=== PATIENT | male | born 1950 | race African-American/Black ===

== ENCOUNTER 2020-04-01 12:32 | Outpatient (REF) | payer MEDICARE, MEDICAID, SELFPAY ==
[2020-04-01 13:12] LABS: MANUAL DIFF FLAG NO
[2020-04-01 13:19] LABS: Basophils Percent Auto 0.2 % (0-2); Eosinophils Absolute Auto 0.2 X10*3/uL (0.0-0.4); Eosinophils Percent Auto 3.3 % (0-4); Hematocrit 33.9 % (42-52); Hemoglobin 10.5 g/dl (14.0-18.0); Imm Gran Abs Auto 0.03 X10*3/uL (0.00-0.03); Imm Gran Pct Auto 0.5 % (0.0-0.4); Lymphocytes Absolute Auto 1.7 X10*3/uL (1.2-4.9); Lymphocytes Percent Auto 26.3 % (20-40); Mean Corpuscular Hemoglobin 32.3 pg (27.0-33.0); Mean Corpuscular Volume 104.3 fL (80-98); Mean Platelet Volume 9.1 fL (9.4-12.4); Monocytes Absolute Auto 0.7 X10*3/uL (0.1-1.2); Monocytes Percent Auto 11.6 % (2-11); Neutrophils Absolute Auto 3.7 X10*3/uL (2.0-8.3); Neutrophils Percent Auto 58.1 % (45-73); Platelet Count 149 X10*3/uL (160-400); Red Blood Count 3.25 X10*6/uL (4.60-5.80); Red Cell Distribution Width 13.4 % (11.0-16.0); White Blood Count 6.3 X10*3/uL (4.8-10.8)
[2020-04-01 13:52] LABS: Anion Gap 13 (12-20); Blood Urea Nitrogen 14 mg/dL (9-16); Calcium 8.8 mg/dL (8.4-10.2); Carbon Dioxide 31 mmol/L (22-29); Chloride 104 mmol/L (96-108); Estimated Glomerular Filt Rate 51; Magnesium 1.9 mg/dL (1.6-2.6); Phosphorus 2.8 mg/dL (2.7-4.5); Potassium 3.2 mmol/l (3.3-5.1); Sodium 145 mmol/L (135-145)
[2020-04-01 13:53] LABS: Renal w Reflex Lab Use Only Order verified
[2020-04-01 14:10] LABS: Glucose Urine UA NEG (NEG); Leukocyte Esterase Urine TRACE (NEG); Nitrite Urine NEG (NEG); Specific Gravity - Urine 1.025 (1.005-1.025); UACC Culture Trigger YES; Urine Blood 3+ (NEG); Urine Ketones NEG (NEG); Urine Protein 1+ MG/DL (NEG-TRACE)
[2020-04-01 14:12] LABS: Appearance Urine HAZY; Color Urine YELLOW
[2020-04-01 14:14] LABS: Vitamin D 25-OH Total 25.1 ng/mL (>30)
[2020-04-01 14:25] LABS: Bacteria Urine 1+ /LPF; Mucus Urine TRACE /LPF; Squamous Epithelial Cell Urine TRACE /LPF; WBC Urine 50-75 /HPF (0-4)
[2020-04-01 14:39] LABS: Microalbum/Creatinine Ratio Ur 91.4 ug/mg cr; Protein/Creatinine Ratio, Ur 0.21 (<0.2); Total Protein Urine Random 61 mg/dL (<12)
[2020-04-02 15:42] LABS: Calcium (PTHI) 8.8 mg/dL (8.6-10.3); PTHI 57 pg/mL (14-64)
== END 2020-04-01 12:33 | disposition home or self-care (01) ==
LOC: HO.LAB 12:32
PROVIDERS: PCP Internal Medicine; Visit Provider Internal Medicine Nephrology
DX: I12.9 Hypertensive chronic kidney disease with stage 1 through stage 4 chronic kidney disease, or unspecified chronic kidney disease (principal); N18.2 Chronic kidney disease, stage 2 (mild); R80.9 Proteinuria, unspecified
CPT/HCPCS: 36415; 80051; 81001; 81003; 82040; 82043; 82306; 82310; 82565; 83735; 83970; 84100; 84156; 84520; 85025; 87086; 87088; 87186

== ENCOUNTER 2020-05-24 11:43 | Emergency (ER) | payer MEDICARE, MEDICAID, SELFPAY ==
--- NOTE | ~2020-05-24 | US_ITS ---
EXAMINATION: US VENOUS ULTRASOUND WITH DOPPLER LOWER EXTREMITY, RIGHT CLINICAL INFORMATION: Swelling and pain COMPARISON: Bilateral lower extremity venous ultrasound exam October 2016 TECHNIQUE: Ultrasound of the deep veins is performed from the hip to the calf with compression sonography and color and pulse Doppler assessment. Spectral analysis with color-flow imaging is performed. FINDINGS: There is normal venous compression and respiratory variation and augmented flow. The visualized common femoral vein, superficial femoral vein, profunda femoral vein, popliteal vein, and the trifurcation region shows no evidence of deep venous thrombosis. There is no significant popliteal fossa cyst. US/US venous duplex LE RT IMPRESSION: No DVT demonstrated in the right lower extremity.
--- NOTE | ~2020-05-24 | XR_ITS ---
EXAMINATION: XR HIP, RIGHT CLINICAL INFORMATION: Pain. COMPARISON: None. TECHNIQUE: 2 views of the right hip. FINDINGS: There is normal bilateral hip joint space without any bony erosive changes or fracture. The entire pelvic bone and SI joints are normal. There are small enthesophytes along the anterosuperior and anteroinferior iliac spines. There is mild endplate spondylosis in the L5 vertebra. AP and frog-leg views right hip reveal no fracture, bony erosive changes or loose bodies. There is minimal lateral acetabular spurring. XR/XR hip RT w PEL1V IMPRESSION: No acute fracture or dislocation. Mild degenerative changes along the right acetabulum. Enthesophytes along the anterosuperior iliac spine bilaterally.
[2020-05-24 12:00] VITALS: BP 135/68; BP 141/76; PULSE 58; PULSE 62; RESP 16; O2SAT 98; O2SAT 99; BMI 31.5
[2020-05-24 12:15] VITALS: BP 137/65; PULSE 55; RESP 16; TEMP 36.9; O2SAT 99
--- NOTE | 2020-05-24 12:20 | ED_ITS ---
HPI - Extremity Problem General Chief complaint: Extremity Problem Stated complaint: R HIP PAIN OVER 1 WEEK Time Seen by Provider: 05/24/20 12:10 Source: patient and EMS Mode of arrival: EMS Limitations: no limitations History of Present Illness HPI Narrative: 69-year-old male history of chronic lymphedema to bilateral lower extremities for the past 2 years, for the past 2 weeks now has been complaining of right lower extremities pain and swelling, no fever, no chills. Related Data Allergies Allergy/AdvReac Type Severity Reaction Status Date / Time furosemide [From LASIX] Allergy Severe PASSED Unverified 11/20/19 16:47 OUT Review of Systems Review of Systems: All other systems are reviewed and are negative Constitutional: Reports as per HPI and Reports no additional constitutional complaints Eyes: Reports as per HPI and Reports no additional eye complaints Reports system reviewed and no additional complaints, except as documented Cardiovascular: Reports as per HPI and Reports no additional cardiovascular complaints Respiratory: Reports as per HPI and Reports no additional respiratory complaints Gastrointestinal: Reports as per HPI and Reports no additional gastrointestinal complaints Genitourinary: Reports no additional female genitourinary complaints Musculoskeletal: Reports no additional musculoskeletal complaints Skin/Breast: Reports system reviewed and no additional complaints, except as docu Psychiatric: Reports no additional psychiatric complaints Endocrine: Reports no additional endocrine complaints Hematologic/Lymphatic: Reports no additional hematologic/lymphatic complaints Allergic/Immunologic: Reports no additional allergic/immunologic complaints Reports system reviewed and no additional complaints, except as documented and Reports Abnormal speech present [facility] Social History Social History Alcohol intake: former Smoking Status: Current every day smoker Use of substances other than those prescribed or required for medical reasons: No Advance Directives: No Advance Directives Information Provided: Yes Physical Exam Vital Signs: Vital Signs: Last Vital Signs Temp 98.4 F 05/24/20 14:26 Pulse 60 05/24/20 14:26 Resp 16 05/24/20 14:26 BP 129/72 05/24/20 14:26 Pulse Ox 99 05/24/20 14:26 Body Mass Index 31.5 Vital signs have been reviewed as appeared to be correct. Blood pressure normal. Heart rate normal. Respiration rate normal. Temperature normal. Oxygen saturation normal. Appearance: Alert. Oriented X3. No acute distress. Head: Normal external exam. Normocephalic. Atraumatic. No Quezada signs noted. No raccoon eyes noted Eyes: PERRLA. EOMI. Conjunctiva and sclera normal. Eyelids normal. ENT: TM's Normal. Pharynx normal. Uvula midline. Moist mucous membranes. No trismus noted. No drooling noted. No muffled voice noted. Neck: Normal inspection. Neck supple. FROM. No adenopathy. Thyroid Normal. No meningeal signs. No neck mass noted. CVS: Normal heart rate and rhythm. Heart sound normal. No murmurs noted. Pulses normal throughout. Respiratory: No respiratory distress. Painless inspiration. Breath sounds normal. No wheezes/rales/rhonchi noted. Chest nontender. No accessory muscle usage noted or decreased air movement noted. Abdomen: Soft and nontender. Bowel sounds normal in all 4 quadrants. No distention noted. No organomegaly noted. No visible injury noted. Back: No CVA tenderness. Full range of motion noted. Skin: Skin warm and dry. Normal skin color. Normal skin turgor. No rashes/lesions/lacerations noted. Extremities: Bilateral significant lower extremities +3 pitting edema. Neuro: Oriented X 3. No motor deficit. No sensory deficit. Reflexes normal. Course Course Course Narrative: Assessment and plan. 69-year-old male with chronic bilateral lower extremities lymphedema, came in today for worsening of the pain in the right hip and right lower extremities. Patient has unremarkable labs, do not appear to be in congestive heart failure, no DVT on the ultrasound lower extremities, no fracture or dislocation on the plain x-ray of her right hip. Will discharge the patient to use NSAIDs versus Tylenol p.r.n. pain. And follow-up with PCP may need referral to pain management clinic. MDM - Extremity (Nontraumatic) Lab Data Attestation: I reviewed the patient's lab results. Result diagrams: 05/24/20 13:19 05/24/20 13:19 Labs: Lab Results 05/24/20 05/24/20 05/24/20 Range/Units 13:19 13:19 13:19 WBC 5.4 (4.8-10.8) X10*3/uL RBC 3.55 L (4.60-5.80) X10*6/uL Hgb 11.5 L (14.0-18.0) g/dl Hct 37.2 L (42-52) % MCV 104.8 H (80-98) fL MCH 32.4 (27.0-33.0) pg MCHC 30.9 L (31.0-36.0) g/dl RDW 13.5 (11.0-16.0) % Plt Count 136 L (160-400) X10*3/uL MPV 8.3 L (9.4-12.4) fL Immature Gran % (Auto) 0.2 (0.0-0.4) % Neut % (Auto) 60.4 (45-73) % Lymph % (Auto) 25.6 (20-40) % [place] % (Auto) 10.6 (2-11) % Eos % (Auto) 2.8 (0-4) % Baso % (Auto) 0.4 (0-2) % Lymph # (Auto) 1.4 (1.2-4.9) X10*3/uL [place] # (Auto) 0.6 (0.1-1.2) X10*3/uL Eos # (Auto) 0.2 (0.0-0.4) X10*3/uL Baso # (Auto) 0.0 (0.0-0.2) X10*3/uL Abs Immat Gran (auto) 0.01 (0.00-0.03) X10*3/uL Absolute Neuts (auto) 3.2 (2.0-8.3) X10*3/uL Absolute Nucleated RBC 0.000 (0.0-0.012) X10*3/uL Nucleated RBC % (auto) 0.0 (0.0-0.2) /100WBC Sodium 145 (135-145) mmol/L Potassium 3.8 (3.3-5.1) mmol/L Chloride 107 (96-108) mmol/L Carbon Dioxide 29 (22-29) mmol/L Anion Gap 13 (12-20) BUN 17 H (9-16) mg/dL Creatinine 1.44 H (0.5-1.4) mg/dL Estim Creat Clear Calc 57.3 Estimated GFR 48 Random Glucose 104 (60-115) mg/dL Calcium 9.0 (8.4-10.2) mg/dL Total Bilirubin 0.6 (0.0-1.0) mg/dL Direct Bilirubin 0.2 (0.0-0.5) mg/dL AST 40 H (5-37) U/L ALT 28 (0-40) U/L Alkaline Phosphatase 78 (39-117) U/L B-Natriuretic Peptide 16 (<100) pg/mL Total Protein 6.9 (6.5-8.0) g/dL Albumin 4.1 (3.5-5.0) g/dL Imaging Data Right lower extremities venous Doppler.: Radiologist's impression: No DVT demonstrated in the right lower extremities. Right hip x-ray: Radiologist's impression: No acute pathology or dislocation. Discharge Plan Discharge Clinical Impression: Lymphedema of both lower extremities Patient Disposition: Home, Self-Care Instructions: Leg Edema (ED) Additional Instructions: As we discussed you can take Tylenol 500 mg ([id number]) every 6 hours if needed for pain. And you can alternate with ibuprofen 400 mg ([id number]) every 6 hours if needed for pain. Referrals: [facility] [place] Group] - 2 days
--- NOTE | 2020-05-24 12:44 | PC.NURSE ---
pt comes to ED with right sided 10/10 hip pain from a bone infection in his hip. pt is alert and oriented x3. verbal response and eye contact appropriate for setting. pt speaks in full sentences and able to make needs known. lung sounds clear bilaterally. respirations are even rate and unlabored. pts lower legs have non-pitting edema bilaterally, slight pitting in both feet. pt states both lower legs are tender to touch. skin on lower legs is edematous and loose but no breakdown present. bottoms of both feet are extremely dirty and toenails are overgrown, no skin breakdown noted in feet. inspection of right hip reveals no skin breakdown, no bruising or deformities noted. skin color on hip normal for patient, pt states right hip is tender to touch. pt aware of plan of care. aware.
[2020-05-24] MEDS: Morphine Sulfate 2 MG/ML CARTRIDGE IVPUSH (13:21)
[2020-05-24 13:23] LABS: MANUAL DIFF FLAG NO
[2020-05-24 13:25] LABS: Basophils Percent Auto 0.4 % (0-2); Eosinophils Absolute Auto 0.2 X10*3/uL (0.0-0.4); Eosinophils Percent Auto 2.8 % (0-4); Hematocrit 37.2 % (42-52); Hemoglobin 11.5 g/dl (14.0-18.0); Imm Gran Abs Auto 0.01 X10*3/uL (0.00-0.03); Imm Gran Pct Auto 0.2 % (0.0-0.4); Lymphocytes Absolute Auto 1.4 X10*3/uL (1.2-4.9); Lymphocytes Percent Auto 25.6 % (20-40); Mean Corpuscular HGB Conc 30.9 g/dl (31.0-36.0); Mean Corpuscular Hemoglobin 32.4 pg (27.0-33.0); Mean Corpuscular Volume 104.8 fL (80-98); Mean Platelet Volume 8.3 fL (9.4-12.4); Monocytes Absolute Auto 0.6 X10*3/uL (0.1-1.2); Monocytes Percent Auto 10.6 % (2-11); Neutrophils Absolute Auto 3.2 X10*3/uL (2.0-8.3); Neutrophils Percent Auto 60.4 % (45-73); Platelet Count 136 X10*3/uL (160-400); Red Blood Count 3.55 X10*6/uL (4.60-5.80); Red Cell Distribution Width 13.5 % (11.0-16.0); White Blood Count 5.4 X10*3/uL (4.8-10.8)
[2020-05-24 13:50] LABS: B Type Natriuretic Peptide 16 pg/mL (<100)
[2020-05-24 13:58] LABS: Alanine Aminotransferase 28 U/L (0-40); Albumin Level 4.1 g/dL (3.5-5.0); Alkaline Phosphatase 78 U/L (39-117); Anion Gap 13 (12-20); Aspartate Amino Transferase 40 U/L (5-37); Bilirubin Direct 0.2 mg/dL (0.0-0.5); Bilirubin Total 0.6 mg/dL (0.0-1.0); Blood Urea Nitrogen 17 mg/dL (9-16); Carbon Dioxide 29 mmol/L (22-29); Chloride 107 mmol/L (96-108); Creatinine Clr Calc Pharmacy 57.3; Estimated Glomerular Filt Rate 48; Glucose Random 104 mg/dL (60-115); Potassium 3.8 mmol/L (3.3-5.1); Sodium 145 mmol/L (135-145); Total Protein 6.9 g/dL (6.5-8.0)
[2020-05-24 14:26] VITALS: BP 129/72; PULSE 60; RESP 16; TEMP 36.9; O2SAT 99
--- NOTE | 2020-05-24 15:57 | PC.NURSE ---
per chd margarita pt okay to await in waiting room for chd ride.
== END 2020-05-24 16:09 | disposition home or self-care (01) ==
PROVIDERS: Emergency Provider Emergency Medicine
DX: M25.551 Pain in right hip (principal); R60.0 Localized edema; F17.200 Nicotine dependence, unspecified, uncomplicated; Z71.6 Tobacco abuse counseling
CPT/HCPCS: 36415; 73502; 80048; 80076; 83880; 85025; 93971; 96374; 99284; J2270

== ENCOUNTER 2020-07-06 12:28 | Outpatient (REF) | payer MEDICARE, MEDICAID, SELFPAY ==
[2020-07-06 15:03] LABS: Prostate Specific Antigen 0.69 ng/mL (<0.05-4.0)
== END 2020-07-06 12:29 | disposition home or self-care (01) ==
LOC: HO.10HDL 12:28
PROVIDERS: Visit Provider Urology
DX: Z12.5 Encounter for screening for malignant neoplasm of prostate (principal); N40.1 Benign prostatic hyperplasia with lower urinary tract symptoms
CPT/HCPCS: 36415; 84153

== ENCOUNTER 2020-09-27 14:00 | Outpatient (REF) | payer MEDICARE, MEDICAID, SELFPAY ==
--- NOTE | ~2020-09-27 | XR_ITS ---
EXAMINATION: XR LUMBOSACRAL SPINE CLINICAL INFORMATION: Low back pain COMPARISON: Previous x-ray December 2017 TECHNIQUE: Three views of the lumbosacral spine. FINDINGS: Bone alignment is normal. No fracture or dislocation is seen. There is mild degenerative spondylosis greatest at L1-L2. There is mild degenerative disc disease at L1-L2 and L5-S1. There is lower lumbar spine facet arthritis. XR/XR lumbar spine 2-3V IMPRESSION: Mild degenerative changes.
== END 2020-09-27 14:01 | disposition home or self-care (01) ==
LOC: HO.XRAY 14:00
PROVIDERS: PCP Internal Medicine; Visit Provider Internal Medicine
DX: M54.41 Lumbago with sciatica, right side (principal)
CPT/HCPCS: 72100

== ENCOUNTER 2020-11-25 11:07 | Outpatient (REF) | payer MEDICARE, MEDICAID, SELFPAY ==
[2020-11-25 12:35] LABS: MANUAL DIFF FLAG NO
[2020-11-25 12:38] LABS: Basophils Percent Auto 0.4 % (0-2); Eosinophils Absolute Auto 0.3 X10*3/uL (0.0-0.4); Hematocrit 33.2 % (42-52); Hemoglobin 10.4 g/dl (14.0-18.0); Imm Gran Abs Auto 0.02 X10*3/uL (0.00-0.03); Imm Gran Pct Auto 0.4 % (0.0-0.4); Lymphocytes Absolute Auto 1.6 X10*3/uL (1.2-4.9); Lymphocytes Percent Auto 29.3 % (20-40); Mean Corpuscular HGB Conc 31.3 g/dl (31.0-36.0); Mean Corpuscular Hemoglobin 32.3 pg (27.0-33.0); Mean Corpuscular Volume 103.1 fL (80-98); Mean Platelet Volume 8.8 fL (9.4-12.4); Monocytes Absolute Auto 0.6 X10*3/uL (0.1-1.2); Monocytes Percent Auto 11.9 % (2-11); Neutrophils Absolute Auto 2.9 X10*3/uL (2.0-8.3); Platelet Count 137 X10*3/uL (160-400); Red Blood Count 3.22 X10*6/uL (4.60-5.80); Red Cell Distribution Width 13.3 % (11.0-16.0); White Blood Count 5.4 X10*3/uL (4.8-10.8)
[2020-11-25 12:55] LABS: Appearance Urine CLEAR; Color Urine DK YELLOW; Glucose Urine UA NEG (NEG); Leukocyte Esterase Urine NEG (NEG); Nitrite Urine NEG (NEG); Specific Gravity - Urine >= 1.030 (1.005-1.025); Urine Blood 2+ (NEG); Urine Ketones NEG (NEG); Urine Protein TRACE MG/DL (NEG-TRACE)
[2020-11-25 13:06] LABS: Albumin Level 3.8 g/dL (3.5-5.0); Anion Gap 12 (12-20); Blood Urea Nitrogen 21 mg/dL (9-16); Carbon Dioxide 28 mmol/L (22-29); Chloride 107 mmol/L (96-108); Estimated Glomerular Filt Rate 41; Phosphorus 3.8 mg/dL (2.7-4.5); Sodium 143 mmol/L (135-145); Total Protein 6.5 g/dL (6.5-8.0)
[2020-11-25 13:10] LABS: Microalbum/Creatinine Ratio Ur 9.4 ug/mg cr; Protein/Creatinine Ratio, Ur 0.05 (<0.2); Total Protein Urine Random 19 mg/dL (<12)
[2020-11-25 14:11] LABS: Renal w Reflex Lab Use Only Order verified
[2020-11-25 14:45] LABS: Bacteria Urine 3+ /LPF; Squamous Epithelial Cell Urine 2+ /LPF
== END 2020-11-25 11:08 | disposition home or self-care (01) ==
LOC: HO.LAB 11:07
PROVIDERS: Absent Provider Internal Medicine; PCP Internal Medicine; Visit Provider Internal Medicine Nephrology
DX: R80.9 Proteinuria, unspecified (principal); I12.9 Hypertensive chronic kidney disease with stage 1 through stage 4 chronic kidney disease, or unspecified chronic kidney disease; N18.2 Chronic kidney disease, stage 2 (mild)
CPT/HCPCS: 36415; 80051; 81001; 81003; 82040; 82043; 82310; 82565; 83735; 84100; 84155; 84156; 84520; 85025

== ENCOUNTER 2021-06-29 12:10 | Outpatient (REF) | payer MEDICARE, OTHER, SELFPAY ==
[2021-06-29 12:34] LABS: MANUAL DIFF FLAG NO
[2021-06-29 13:24] LABS: Basophils Percent Auto 0.5 % (0-2); Eosinophils Absolute Auto 0.4 X10*3/uL (0.0-0.4); Eosinophils Percent Auto 5.9 % (0-4); Hematocrit 32.1 % (42.0-52.0); Imm Gran Abs Auto 0.02 X10*3/uL (0.00-0.03); Imm Gran Pct Auto 0.3 % (0.0-0.4); Lymphocytes Absolute Auto 2.3 X10*3/uL (1.2-4.9); Lymphocytes Percent Auto 30.6 % (20-40); Mean Corpuscular HGB Conc 31.2 g/dl (31.0-36.0); Mean Corpuscular Hemoglobin 31.7 pg (27.0-33.0); Mean Corpuscular Volume 101.9 fL (80.0-98.0); Mean Platelet Volume 8.8 fL (9.4-12.4); Monocytes Absolute Auto 0.7 X10*3/uL (0.1-1.2); Monocytes Percent Auto 9.8 % (2-11); Neutrophils Absolute Auto 3.9 x10*3/uL (2.0-8.3); Neutrophils Percent Auto 52.9 % (45-73); Platelet Count 156 X10*3/uL (160-400); Red Blood Count 3.15 X10*6/uL (4.60-5.80); Red Cell Distribution Width 13.5 % (11.0-16.0); White Blood Count 7.5 X10*3/uL (4.8-10.8)
[2021-06-29 14:01] LABS: Albumin Level 4.1 g/dL (3.5-5.0); Anion Gap 12 (12-20); Blood Urea Nitrogen 26 mg/dL (9-16); Calcium 9.4 mg/dL (8.4-10.2); Carbon Dioxide 29 mmol/L (22-29); Chloride 105 mmol/L (96-108); Estimated Glomerular Filt Rate 33; Magnesium 1.9 mg/dL (1.6-2.6); Phosphorus 3.3 mg/dL (2.7-4.5); Potassium 4.1 mmol/L (3.3-5.1); Sodium 142 mmol/L (135-145)
[2021-06-29 14:10] LABS: Vitamin D 25-OH Total 23.5 ng/mL (>30)
[2021-07-01 13:02] LABS: Calcium (PTHI) 9.1 mg/dL (8.6-10.3); PTHI 80 pg/mL (16-77)
== END 2021-06-29 12:11 | disposition home or self-care (01) ==
LOC: HO.LAB 12:10
PROVIDERS: PCP Internal Medicine; Visit Provider Internal Medicine Nephrology
DX: R80.1 Persistent proteinuria, unspecified (principal); N25.0 Renal osteodystrophy; N18.32 Chronic kidney disease, stage 3b; F17.290 Nicotine dependence, other tobacco product, uncomplicated
CPT/HCPCS: 36415; 80051; 82040; 82306; 82310; 82565; 83735; 83970; 84100; 84520; 85025

== ENCOUNTER 2021-07-19 14:27 | Outpatient (REF) | payer MEDICARE, OTHER, SELFPAY ==
[2021-07-19 14:54] LABS: Appearance Urine HAZY; Color Urine YELLOW; Glucose Urine UA NEG (NEG); Leukocyte Esterase Urine TRACE (NEG); Nitrite Urine NEG (NEG); Specific Gravity - Urine 1.025 (1.005-1.025); Urine Blood 2+ (NEG); Urine Ketones NEG (NEG); Urine Protein NEG (NEG-TRACE)
[2021-07-19 14:59] LABS: Bacteria Urine 2+ /LPF
[2021-07-19 15:00] LABS: Squamous Epithelial Cell Urine 3+ /LPF
[2021-07-19 15:09] LABS: Creatinine Urine 246.95 mg/dL; Microalbum/Creatinine Ratio Ur 10.5 ug/mg cr; Protein/Creatinine Ratio, Ur 0.06 (<0.2); Total Protein Urine Random 14 mg/dL (<12)
== END 2021-07-19 14:28 | disposition home or self-care (01) ==
LOC: HO.LNP 14:27
PROVIDERS: Visit Provider Internal Medicine Nephrology
DX: N18.32 Chronic kidney disease, stage 3b (principal); R80.1 Persistent proteinuria, unspecified; N25.0 Renal osteodystrophy; F17.290 Nicotine dependence, other tobacco product, uncomplicated
CPT/HCPCS: 81001; 82043; 84156; 87086; 87088; 87186

== ENCOUNTER 2021-12-05 14:17 | Outpatient (REF) | payer MEDICARE, OTHER, SELFPAY ==
[2021-12-05 14:36] LABS: MANUAL DIFF FLAG NO
[2021-12-05 15:45] LABS: Basophils Percent Auto 0.6 % (0-2); Eosinophils Absolute Auto 0.4 X10*3/uL (0.0-0.4); Eosinophils Percent Auto 5.9 % (0-4); Hematocrit 34.4 % (42.0-52.0); Hemoglobin 10.6 g/dl (14.0-18.0); Imm Gran Abs Auto 0.02 X10*3/uL (0.00-0.03); Imm Gran Pct Auto 0.3 % (0.0-0.4); Lymphocytes Absolute Auto 1.6 X10*3/uL (1.2-4.9); Mean Corpuscular HGB Conc 30.8 g/dl (31.0-36.0); Mean Corpuscular Hemoglobin 31.4 pg (27.0-33.0); Mean Corpuscular Volume 101.8 fL (80.0-98.0); Mean Platelet Volume 8.9 fL (9.4-12.4); Monocytes Absolute Auto 0.8 X10*3/uL (0.1-1.2); Monocytes Percent Auto 11.4 % (2-11); Neutrophils Absolute Auto 3.9 x10*3/uL (2.0-8.3); Neutrophils Percent Auto 57.8 % (45-73); Platelet Count 186 X10*3/uL (160-400); Red Blood Count 3.38 X10*6/uL (4.60-5.80); Red Cell Distribution Width 13.8 % (11.0-16.0); White Blood Count 6.7 X10*3/uL (4.8-10.8)
[2021-12-05 16:13] LABS: Albumin Level 4.1 g/dL (3.5-5.0); Anion Gap 14 (12-20); Blood Urea Nitrogen 17 mg/dL (9-16); Calcium 9.1 mg/dL (8.4-10.2); Carbon Dioxide 29 mmol/L (22-29); Chloride 106 mmol/L (96-108); Estimated Glomerular Filt Rate 45; Magnesium 2.1 mg/dL (1.6-2.6); Phosphorus 3.1 mg/dL (2.7-4.5); Potassium 3.9 mmol/L (3.3-5.1); Sodium 145 mmol/L (135-145)
[2021-12-05 16:27] LABS: Vitamin D 25-OH Total 25.3 ng/mL (>30)
[2021-12-05 17:16] LABS: Appearance Urine Cloudy; Color Urine Yellow; Glucose Urine UA Negative (Negative); Leukocyte Esterase Urine Moderate (2+) (Negative); Nitrite Urine Negative (Negative); PH 5.5 (5.0-9.0); Specific Gravity - Urine 1.025 (1.005-1.025); UMIC TRIGGER UA YES; Urine Blood Moderate (2+) (Negative); Urine Ketones Trace mg/dL (Negative); Urine Protein Trace mg/dL (Neg-Trace)
[2021-12-05 17:31] LABS: Bacteria Urine 4+ (None Seen); Hyaline Casts Urine 0-2 /LPF (0-2); WBC Clumps Urine Present; WBC Urine >50 /HPF (0-5)
[2021-12-05 17:48] LABS: Creatinine Urine 304.26 mg/dL; Microalbum/Creatinine Ratio Ur 9.5 ug/mg cr; Protein/Creatinine Ratio, Ur 0.08 (<0.2); Total Protein Urine Random 25 mg/dL (<12)
[2021-12-07 12:37] LABS: Calcium (PTHI) 9.3 mg/dL (8.6-10.3); PTHI 75 pg/mL (16-77)
== END 2021-12-05 14:18 | disposition home or self-care (01) ==
LOC: HO.LAB 14:17
PROVIDERS: PCP Internal Medicine; Visit Provider Internal Medicine Nephrology
DX: I12.9 Hypertensive chronic kidney disease with stage 1 through stage 4 chronic kidney disease, or unspecified chronic kidney disease (principal); N18.32 Chronic kidney disease, stage 3b; N25.0 Renal osteodystrophy; F17.290 Nicotine dependence, other tobacco product, uncomplicated; R30.0 Dysuria
CPT/HCPCS: 36415; 80051; 81001; 82040; 82043; 82306; 82310; 82565; 83735; 83970; 84100; 84156; 84520; 85025; 87086

== ENCOUNTER 2022-02-09 15:13 | Outpatient (REF) | payer MEDICARE, OTHER, SELFPAY ==
--- NOTE | ~2022-02-09 | US_ITS ---
EXAMINATION: US SCROTUM CLINICAL INFORMATION: Bilateral testicular enlargement. COMPARISON: None TECHNIQUE: A sonogram of the scrotum was performed assessing pond-scale appearance and color Doppler flow. Spectral Doppler analysis of the arterial and venous flow were performed in the testes bilaterally. FINDINGS: RIGHT: Right testicle measures 3.9 x 1.7 x 2.0 cm, volume 6.9 mL. No focal testicular parenchymal lesions are visualized. Spectral Doppler analysis of the arterial and venous flow is normal in the right testis. Incidental finding of small appendix testes. Right epididymal head is normal in size. There is a large right hydrocele No right varicocele is seen. Right epididymal Doppler flow is normal. LEFT: Left testicle measures 3.7 x 2.0 x 2.3 cm, volume 8.9 mL. No focal testicular parenchymal lesions are visualized. Spectral Doppler analysis of the arterial and venous flow is normal in the left testis. Incidental finding of a small appendix testes noted. Left epididymis is not visualized. There is a large left hydrocele. No left varicocele is seen. US/US scrotum IMPRESSION: Bilateral large hydroceles. Bilateral appendix testes. Left epididymis is not visualized. Right epididymal head simple cyst.
== END 2022-02-09 15:14 | disposition home or self-care (01) ==
LOC: HO.US 15:13
PROVIDERS: Visit Provider Internal Medicine
DX: N50.89 Other specified disorders of the male genital organs (principal)
CPT/HCPCS: 76870

== ENCOUNTER 2022-07-03 14:43 | Emergency (ER) | payer MEDICARE, MEDICAID, SELFPAY ==
[2022-07-03] VITALS (7 sets, daily range): BP systolic 132–147; BP diastolic 54–73; PULSE 52–67; RESP 18; TEMP 36.8; O2SAT 98; BMI 35.7
--- NOTE | 2022-07-03 16:05 | ECG_ITS ---
Test Reason : LOW POTASSIUM Blood Pressure : / mmHG Vent. Rate : 059 BPM Atrial Rate : 059 BPM P-R Int : 136 ms QRS Dur : 080 ms QT Int : 458 ms P-R-T Axes : 042 015 008 degrees QTc Int : 453 ms Sinus bradycardia with sinus arrhythmia Nonspecific ST abnormality Abnormal ECG When compared with ECG of 06-APR-2009 14:30, Nonspecific T wave abnormality now evident in Anterior leads Referred By: Bambi Goldman Electronically Signed By:LUKASZ WOO MD
--- NOTE | 2022-07-03 16:06 | ED_ITS ---
HPI - Recheck/Abnormal Lab/Rx General Chief Complaint: Recheck/Abnormal Lab/Rx <RAFITA Montana - Last Filed: 07/03/22 16:07> Stated Complaint: Low potassium levels <RAFITA Montana - Last Filed: 07/03/22 16:07> Time Seen by Provider: 07/03/22 16:20 <RAFITA [place] - Last Filed: 07/03/22 16:07> Source: patient <Rhonda Leon MD - Last Filed: 07/03/22 21:14> Mode of arrival: ambulatory <Rhonda Leon MD - Last Filed: 07/03/22 21:14> Limitations: no limitations <Rhonda Leon MD - Last Filed: 07/03/22 21:14> History of Present Illness HPI narrative: Patient comes to the emergency room complaining of low potassium. Patient states that 3 days ago, he had blood work done, patient was informed that his potassium was low. Patient received a phone call today from his PCP, asking him to come to the emergency room for further treatment/evaluation. Patient denies any chest pain or shortness of breath, no recent illnesses. Patient reports a for 1 month, he has been feeling drowsy. Initially, patient reported that he feels dizzy, patient explains dizziness as feeling unsteady when walking. Denies any room spinning, self spinning <Rhonda Leon MD - Last Filed: 07/03/22 21:14> Related Data Home Medications: Previous Rx's Medication Instructions Recorded potassium chloride 10 mEq 10 meq PO DAILY #30 caps 07/03/22 capsule,extended release <RAFITA Montana - Last Filed: 07/03/22 16:07> Allergies/Adverse Reactions: Allergies Allergy/AdvReac Type Severity Reaction Status Date / Time furosemide [From LASIX] Allergy Severe PASSED Verified 07/03/22 15:18 OUT <RAFITA Montana - Last Filed: 07/03/22 16:07> Review of Systems Review of Systems: Constitutional : No Weight loss, No Fever, No Chills, No Night Sweats, complaining of drowsiness from month, No Malaise ENT/Mouth : No Hearing loss, No Ear Pain, No Nasal Congestion, No Sinus Pain, No Hoarseness, No sore throat, No Rhinorrhea, No Swallowing Difficulty Eyes: No Eye Pain, No Swelling, No Redness, No Foreign Body, No Discharge, No Vision Changes Cardiovascular : No Chest Pain, No SOB, No Dyspnea on Exertion, No Orthopnea, No Edema, No Palpitations Respiratory : No Cough, No Sputum, No Wheezing, No Smoke Exposure, No Dyspnea Gastrointestinal : No Nausea, No Vomiting, No Diarrhea, No Constipation, No abdominal Pain, No Hematochezia, No Melena Genitourinary : no irregular bleeding, No Dysuria, No Urinary Frequency, No Hematuria, No Urinary Incontinence, No Urgency, No Flank Pain, No Urinary Flow Changes, No Hesitancy Musculoskeletal : No joint pain, No Myalgias, No Joint Swelling Skin : No Skin Lesions, No rash Neuro : No Weakness, No Numbness, No Paresthesias, No Loss of Consciousness, No Dizziness, No Headache Psych : No Anxiety/Panic, No Depression, No SI/HI/AH/VH, No Social Issues, Heme/Lymph: No Bruising, No Bleeding,No Lymphadenopathy Endocrine : No Polyuria, No Polydipsia, No Temperature Intolerance <Rhonda Leon MD - Last Filed: 07/03/22 21:14> [facility] Past Medical History Medical History: Medical History (Updated 07/03/22 @ 21:13 by Rhonda Leon MD) Chronic acquired lymphedema <RAFITA Montana - Last Filed: 07/03/22 16:07> Social History Social History: Social History Alcohol intake: former Smoked in Last 30 Days: Yes Advance Directives: No Advance Directives Information Provided: No <RAFITA Montana - Last Filed: 07/03/22 16:07> Physical Exam Vital Signs: Vital Signs: Last Vital Signs Temp 98.3 F 07/03/22 15:20 Pulse 58 07/03/22 17:56 Resp 18 07/03/22 16:00 BP 137/71 07/03/22 17:56 Pulse Ox 98 07/03/22 16:00 O2 Del Method Room Air 07/03/22 16:00 BMI result Body Mass Index 35.7 <RAFITA Montana - Last Filed: 07/03/22 16:07> Vital Signs: Last Vital Signs Temp 98.3 F 07/03/22 15:20 Pulse 58 07/03/22 17:56 Resp 18 07/03/22 16:00 BP 137/71 07/03/22 17:56 Pulse Ox 98 07/03/22 16:00 O2 Del Method Room Air 07/03/22 16:00 BMI result Body Mass Index 35.7 <Rhonda Leon MD - Last Filed: 07/03/22 21:14> Const: Other: Appearance: Alert. Oriented X3. No acute distress. Eyes: Pupils equal, round and reactive to light. ENT: Pharynx normal. Neck: Normal inspection. Neck supple. No lymph nodes noted. No crepitus CVS: Normal heart rate and rhythm. Pulses normal. Normal S1 and S2 Respiratory: No respiratory distress. Breath sounds normal. No Wheezing. No rales Abdomen: Soft and nontender. No rigidity. No distention. Skin: Skin warm and dry. Normal skin color. Normal skin turgor. Extremities: +4 pitting edema (at baseline per patient), chronic venous stasis, chronic lymphedema Neuro: Oriented X 3. No motor deficit. No sensory deficit. Moving all extremities. No slurred speech. CN 2 through 12 grossly intact Psych: calm, cooperative, normal affect <Rhonda Leon MD - Last Filed: 07/03/22 21:14> Course Course Course Narrative: RME - 71 yo male presents to the ER for evaluation of low potassium. He had labs done of Sunday and was told to come to the ER today because his potassium was low. He denies any vomiting or diarrhea. He is not on diuretics. He states he has been dizzy and weak for a month. Plan: labs and EKG <RAFITA Montana - Last Filed: 07/03/22 16:07> Reevaluation(s) Reevaluation #1: Received call from outpatient office saying his potassium was 2.7 on Sunday <RAFITA Montana - Last Filed: 07/03/22 16:07> Medications Administered Discontinued Medications Generic Name Dose Route Start Last Admin Trade Name Freq PRN Reason Stop Dose Admin Potassium Chloride 60 meq 07/03/22 16:29 07/03/22 16:44 Potassium Chloride Packet 20 Meq Packet PO 07/03/22 16:30 60 meq ONCE ONE Administration Potassium Chloride 60 meq 07/03/22 18:43 07/03/22 19:04 Potassium Chloride Packet 20 Meq Packet PO 07/03/22 18:44 60 meq ONCE ONE Administration <RAFITA Montana - Last Filed: 07/03/22 16:07> Medications Administered Discontinued Medications Generic Name Dose Route Start Last Admin Trade Name Alan PRN Reason Stop Dose Admin Potassium Chloride 60 meq 07/03/22 16:29 07/03/22 16:44 Potassium Chloride Packet 20 Meq Packet PO 07/03/22 16:30 60 meq ONCE ONE Administration Potassium Chloride 60 meq 07/03/22 18:43 07/03/22 19:04 Potassium Chloride Packet 20 Meq Packet PO 07/03/22 18:44 60 meq ONCE ONE Administration <Rhonda Leon MD - Last Filed: 07/03/22 21:14> Medical Decision Making Medical Decision Making MDM Narrative: -EKG my interpretation: Bradycardia, sinus rhythm, mild arrhythmia, heart rate 59, no ST segment elevation or depression, no T-wave inversion, QTC 453 -patient's potassium was repleted. Patient remains asymptomatic. Hypokalemia likely secondary to Lasix use. <Rhonda Leon MD - Last Filed: 07/03/22 21:14> Lab Data Result Diagrams: 07/03/22 16:01 07/03/22 16:01 <RAFITA Montana - Last Filed: 07/03/22 16:07> Labs: Lab Results 07/03/22 07/03/22 07/03/22 Range/Units 16:01 16:01 18:18 WBC 5.2 (4.8-10.8) X10*3/uL RBC 2.96 L (4.60-5.80) X10*6/uL Hgb 9.3 L (14.0-18.0) g/dl Hct 29.9 L (42.0-52.0) % MCV 101.0 H (80.0-98.0) fL MCH 31.4 (27.0-33.0) pg MCHC 31.1 (31.0-36.0) g/dl RDW 15.8 (11.0-16.0) % Plt Count 171 (160-400) X10*3/uL MPV 8.1 L (9.4-12.4) fL Immature Gran % (Auto) 0.2 (0.0-0.4) % Neut % (Auto) 55.1 (45-73) % Lymph % (Auto) 28.4 (20-40) % Canadian % (Auto) 11.1 H (2-11) % Eos % (Auto) 4.6 H (0-4) % Baso % (Auto) 0.6 (0-2) % Lymph # (Auto) 1.5 (1.2-4.9) X10*3/uL Canadian # (Auto) 0.6 (0.1-1.2) X10*3/uL Eos # (Auto) 0.2 (0.0-0.4) X10*3/uL Baso # (Auto) 0.0 (0.0-0.2) X10*3/uL Abs Immat Gran (auto) 0.01 (0.00-0.03) X10*3/uL Absolute Neuts (auto) 2.9 (2.0-8.3) x10*3/uL Absolute Nucleated RBC 0.000 (0.0-0.012) X10*3/uL Nucleated RBC % (auto) 0.0 (0.0-0.2) /100WBC VBG pH (7.32-7.43) VBG pCO2 mmHg VBG pO2 mmHg VBG HCO3 (22-26) mmol/L VBG O2 Saturation % VBG Base Excess mmol/L Sodium 146 H 147 H (135-145) mmol/L Potassium 2.8 L D 3.0 L (3.3-5.1) mmol/L Chloride 105 105 (96-108) mmol/L Carbon Dioxide 35 H 35 H (22-29) mmol/L Anion Gap 9 L 10 L (12-20) BUN 11 11 (9-16) mg/dL Creatinine 1.33 1.31 (0.5-1.4) mg/dL Estim Creat Clear Calc 64.1 65.0 Estimated GFR 53 54 Random Glucose 131 H 126 H (60-115) mg/dL Calcium 8.7 8.7 (8.4-10.2) mg/dL Magnesium 2.0 (1.6-2.6) mg/dL Total Bilirubin 0.4 (0.0-1.0) mg/dL Direct Bilirubin 0.2 (0.0-0.5) mg/dL AST 12 (5-37) U/L ALT 5 (0-40) U/L Alkaline Phosphatase 77 (39-117) U/L Total Protein 5.8 L (6.5-8.0) g/dL Albumin 3.3 L (3.5-5.0) g/dL 07/03/22 07/03/22 Range/Units 18:21 20:34 WBC (4.8-10.8) X10*3/uL RBC (4.60-5.80) X10*6/uL Hgb (14.0-18.0) g/dl Hct (42.0-52.0) % MCV (80.0-98.0) fL MCH (27.0-33.0) pg MCHC (31.0-36.0) g/dl RDW (11.0-16.0) % Plt Count (160-400) X10*3/uL MPV (9.4-12.4) fL Immature Gran % (Auto) (0.0-0.4) % Neut % (Auto) (45-73) % Lymph % (Auto) (20-40) % Canadian % (Auto) (2-11) % Eos % (Auto) (0-4) % Baso % (Auto) (0-2) % Lymph # (Auto) (1.2-4.9) X10*3/uL Canadian # (Auto) (0.1-1.2) X10*3/uL Eos # (Auto) (0.0-0.4) X10*3/uL Baso # (Auto) (0.0-0.2) X10*3/uL Abs Immat Gran (auto) (0.00-0.03) X10*3/uL Absolute Neuts (auto) (2.0-8.3) x10*3/uL Absolute Nucleated RBC (0.0-0.012) X10*3/uL Nucleated RBC % (auto) (0.0-0.2) /100WBC VBG pH 7.45 H (7.32-7.43) VBG pCO2 51 mmHg VBG pO2 56 mmHg VBG HCO3 36 H (22-26) mmol/L VBG O2 Saturation 87.0 % VBG Base Excess 11.5 mmol/L Sodium (135-145) mmol/L Potassium 3.6 (3.3-5.1) mmol/L Chloride (96-108) mmol/L Carbon Dioxide (22-29) mmol/L Anion Gap (12-20) BUN (9-16) mg/dL Creatinine (0.5-1.4) mg/dL Estim Creat Clear Calc Estimated GFR Random Glucose (60-115) mg/dL Calcium (8.4-10.2) mg/dL Magnesium (1.6-2.6) mg/dL Total Bilirubin (0.0-1.0) mg/dL Direct Bilirubin (0.0-0.5) mg/dL AST (5-37) U/L ALT (0-40) U/L Alkaline Phosphatase (39-117) U/L Total Protein (6.5-8.0) g/dL Albumin (3.5-5.0) g/dL <RAFITA Montana - Last Filed: 07/03/22 16:07> Lab Results 07/03/22 07/03/22 07/03/22 Range/Units 16:01 16:01 18:18 WBC 5.2 (4.8-10.8) X10*3/uL RBC 2.96 L (4.60-5.80) X10*6/uL Hgb 9.3 L (14.0-18.0) g/dl Hct 29.9 L (42.0-52.0) % MCV 101.0 H (80.0-98.0) fL MCH 31.4 (27.0-33.0) pg MCHC 31.1 (31.0-36.0) g/dl RDW 15.8 (11.0-16.0) % Plt Count 171 (160-400) X10*3/uL MPV 8.1 L (9.4-12.4) fL Immature Gran % (Auto) 0.2 (0.0-0.4) % Neut % (Auto) 55.1 (45-73) % Lymph % (Auto) 28.4 (20-40) % Canadian % (Auto) 11.1 H (2-11) % Eos % (Auto) 4.6 H (0-4) % Baso % (Auto) 0.6 (0-2) % Lymph # (Auto) 1.5 (1.2-4.9) X10*3/uL Canadian # (Auto) 0.6 (0.1-1.2) X10*3/uL Eos # (Auto) 0.2 (0.0-0.4) X10*3/uL Baso # (Auto) 0.0 (0.0-0.2) X10*3/uL Abs Immat Gran (auto) 0.01 (0.00-0.03) X10*3/uL Absolute Neuts (auto) 2.9 (2.0-8.3) x10*3/uL Absolute Nucleated RBC 0.000 (0.0-0.012) X10*3/uL Nucleated RBC % (auto) 0.0 (0.0-0.2) /100WBC VBG pH (7.32-7.43) VBG pCO2 mmHg VBG pO2 mmHg VBG HCO3 (22-26) mmol/L VBG O2 Saturation % VBG Base Excess mmol/L Sodium 146 H 147 H (135-145) mmol/L Potassium 2.8 L D 3.0 L (3.3-5.1) mmol/L Chloride 105 105 (96-108) mmol/L Carbon Dioxide 35 H 35 H (22-29) mmol/L Anion Gap 9 L 10 L (12-20) BUN 11 11 (9-16) mg/dL Creatinine 1.33 1.31 (0.5-1.4) mg/dL Estim Creat Clear Calc 64.1 65.0 Estimated GFR 53 54 Random Glucose 131 H 126 H (60-115) mg/dL Calcium 8.7 8.7 (8.4-10.2) mg/dL Magnesium 2.0 (1.6-2.6) mg/dL Total Bilirubin 0.4 (0.0-1.0) mg/dL Direct Bilirubin 0.2 (0.0-0.5) mg/dL AST 12 (5-37) U/L ALT 5 (0-40) U/L Alkaline Phosphatase 77 (39-117) U/L Total Protein 5.8 L (6.5-8.0) g/dL Albumin 3.3 L (3.5-5.0) g/dL 07/03/22 07/03/22 Range/Units 18:21 20:34 WBC (4.8-10.8) X10*3/uL RBC (4.60-5.80) X10*6/uL Hgb (14.0-18.0) g/dl Hct (42.0-52.0) % MCV (80.0-98.0) fL MCH (27.0-33.0) pg MCHC (31.0-36.0) g/dl RDW (11.0-16.0) % Plt Count (160-400) X10*3/uL MPV (9.4-12.4) fL Immature Gran % (Auto) (0.0-0.4) % Neut % (Auto) (45-73) % Lymph % (Auto) (20-40) % Canadian % (Auto) (2-11) % Eos % (Auto) (0-4) % Baso % (Auto) (0-2) % Lymph # (Auto) (1.2-4.9) X10*3/uL Canadian # (Auto) (0.1-1.2) X10*3/uL Eos # (Auto) (0.0-0.4) X10*3/uL Baso # (Auto) (0.0-0.2) X10*3/uL Abs Immat Gran (auto) (0.00-0.03) X10*3/uL Absolute Neuts (auto) (2.0-8.3) x10*3/uL Absolute Nucleated RBC (0.0-0.012) X10*3/uL Nucleated RBC % (auto) (0.0-0.2) /100WBC VBG pH 7.45 H (7.32-7.43) VBG pCO2 51 mmHg VBG pO2 56 mmHg VBG HCO3 36 H (22-26) mmol/L VBG O2 Saturation 87.0 % VBG Base Excess 11.5 mmol/L Sodium (135-145) mmol/L Potassium 3.6 (3.3-5.1) mmol/L Chloride (96-108) mmol/L Carbon Dioxide (22-29) mmol/L Anion Gap (12-20) BUN (9-16) mg/dL Creatinine (0.5-1.4) mg/dL Estim Creat Clear Calc Estimated GFR Random Glucose (60-115) mg/dL Calcium (8.4-10.2) mg/dL Magnesium (1.6-2.6) mg/dL Total Bilirubin (0.0-1.0) mg/dL Direct Bilirubin (0.0-0.5) mg/dL AST (5-37) U/L ALT (0-40) U/L Alkaline Phosphatase (39-117) U/L Total Protein (6.5-8.0) g/dL Albumin (3.5-5.0) g/dL <Rhonda Leon MD - Last Filed: 07/03/22 21:14> Critical Care Time Critical Care Time Critical Care Time: Yes <Rhonda Leon MD - Last Filed: 07/03/22 21:14> Total Critical Care Time: 30 <Rhonda Leon MD - Last Filed: 07/03/22 21:14> Attestation: I have personally provided critical care time. Time includes review of lab data, radiology results, discussion with consultants, and monitoring for potential decompensation. Intervention performed as documented. <Rhonda Leon MD - Last Filed: 07/03/22 21:14> Discharge Plan Discharge Clinical Impression: Acute hypokalemia <RAFITA Montana - Last Filed: 07/03/22 16:07> Patient Disposition: Home, Self-Care <RAFITA Montana - Last Filed: 07/03/22 16:07> Instructions: Hypokalemia (ED) <RAFITA Montana - Last Filed: 07/03/22 16:07> Additional Instructions: Please follow-up with your primary care physician tomorrow. If you have any worsening or new symptoms, please return to the emergency room or call 911 <RAFITA Montana - Last Filed: 07/03/22 16:07> Prescriptions: New potassium chloride 10 mEq capsule, extended release 10 meq PO DAILY Qty: 30 0RF <RAFITA Montana - Last Filed: 07/03/22 16:07>
[2022-07-03 16:08] LABS: MANUAL DIFF FLAG NO
--- NOTE | 2022-07-03 16:08 | MHC.EDTECH ---
[facility] for ride home: [phone] or [phone]
[2022-07-03 16:19] LABS: Basophils Percent Auto 0.6 % (0-2); Eosinophils Absolute Auto 0.2 X10*3/uL (0.0-0.4); Eosinophils Percent Auto 4.6 % (0-4); Hematocrit 29.9 % (42.0-52.0); Hemoglobin 9.3 g/dl (14.0-18.0); Imm Gran Abs Auto 0.01 X10*3/uL (0.00-0.03); Imm Gran Pct Auto 0.2 % (0.0-0.4); Lymphocytes Absolute Auto 1.5 X10*3/uL (1.2-4.9); Lymphocytes Percent Auto 28.4 % (20-40); Mean Corpuscular HGB Conc 31.1 g/dl (31.0-36.0); Mean Corpuscular Hemoglobin 31.4 pg (27.0-33.0); Mean Platelet Volume 8.1 fL (9.4-12.4); Monocytes Absolute Auto 0.6 X10*3/uL (0.1-1.2); Monocytes Percent Auto 11.1 % (2-11); Neutrophils Absolute Auto 2.9 x10*3/uL (2.0-8.3); Neutrophils Percent Auto 55.1 % (45-73); Platelet Count 171 X10*3/uL (160-400); Red Blood Count 2.96 X10*6/uL (4.60-5.80); Red Cell Distribution Width 15.8 % (11.0-16.0); White Blood Count 5.2 X10*3/uL (4.8-10.8)
[2022-07-03 16:27] LABS: Alanine Aminotransferase 5 U/L (0-40); Albumin Level 3.3 g/dL (3.5-5.0); Alkaline Phosphatase 77 U/L (39-117); Anion Gap 9 (12-20); Aspartate Amino Transferase 12 U/L (5-37); Bilirubin Direct 0.2 mg/dL (0.0-0.5); Bilirubin Total 0.4 mg/dL (0.0-1.0); Blood Urea Nitrogen 11 mg/dL (9-16); Calcium 8.7 mg/dL (8.4-10.2); Carbon Dioxide 35 mmol/L (22-29); Chloride 105 mmol/L (96-108); Creatinine Clr Calc Pharmacy 64.1; Estimated Glomerular Filt Rate 53; Glucose Random 131 mg/dL (60-115); Potassium 2.8 mmol/L (3.3-5.1); Sodium 146 mmol/L (135-145); Total Protein 5.8 g/dL (6.5-8.0)
[2022-07-03] MEDS: Potassium Chloride Packet 20 MEQ PACKET 60 MEQ PO ×2 (16:44→19:04)
[2022-07-03 18:42] LABS: VBG Base Excess 11.5 mmol/L; VBG HCO3 36 mmol/L (22-26); VBG pCO2 51 mmHg; VBG pH 7.45 (7.32-7.43); VBG pO2 56 mmHg
[2022-07-03 18:42] LABS: Anion Gap 10 (12-20); Blood Urea Nitrogen 11 mg/dL (9-16); Calcium 8.7 mg/dL (8.4-10.2); Carbon Dioxide 35 mmol/L (22-29); Chloride 105 mmol/L (96-108); Estimated Glomerular Filt Rate 54; Glucose Random 126 mg/dL (60-115); Sodium 147 mmol/L (135-145)
[2022-07-03 19:01] LABS: Venous Blood Gas Refer to POC result
--- NOTE | 2022-07-03 19:07 | PC.NURSE ---
assumed care of patient at 1900 - second dose of potassium po given. will recheck lab value at 20:00. pt resting comfortably on stretcher in no apparent distress. offers no complaints at this time. will CTM
[2022-07-03 20:51] LABS: Potassium 3.6 mmol/L (3.3-5.1)
== END 2022-07-04 00:44 | disposition home or self-care (01) ==
PROVIDERS: Physician Assistant; Emergency Provider Emergency Medicine; PCP Internal Medicine
DX: E87.6 Hypokalemia (principal); R00.1 Bradycardia, unspecified; Z79.899 Other long term (current) drug therapy
CPT/HCPCS: 36415; 80048; 80076; 82803; 83735; 84132; 85025; 93005; 99283; 99284

== ENCOUNTER 2022-09-11 11:36 | Outpatient (REF) | payer MEDICARE, MEDICAID, SELFPAY | END 2022-09-11 11:37 | disposition home or self-care (01) | LOC: HO.LAB 11:36 | PROVIDERS: PCP Internal Medicine; Visit Provider Internal Medicine | DX: D53.9 Nutritional anemia, unspecified (principal) | CPT/HCPCS: 36415; 82607; 82746; 85025 ==

== ENCOUNTER → 2022-10-04 14:44 | Outpatient (BNV) | payer MEDICARE, MEDICAID, SELFPAY | PROVIDERS: PCP Internal Medicine; Referring Provider Internal Medicine; Visit Provider Internal Medicine | DX: D64.9 Anemia, unspecified (principal) | CPT/HCPCS: 99204; 99213; 99214; G2211 ==

== ENCOUNTER 2022-10-26 10:25 | Outpatient (REF) | payer MEDICARE, MEDICAID, SELFPAY ==
--- NOTE | ~2022-10-26 | US_ITS ---
EXAMINATION: US ABDOMEN COMPLETE CLINICAL INFORMATION: History of alcoholism. Question liver disease. COMPARISON: Ultrasound kidneys and bladder 08/25/2018. TECHNIQUE: Real-time imaging of the abdominal viscera. FINDINGS: PANCREAS: Normal. ABDOMINAL AORTA: The proximal, mid, and distal segments are normal in caliber. INFERIOR VENA CAVA: Visualized portions are normal. LIVER: The liver is normal in size. The liver contour is normal. There is diffuse increased liver parenchymal echogenicity. No focal hepatic lesion. There is no intrahepatic biliary duct dilatation seen. GALLBLADDER: Normal. The gallbladder is physiologically distended without evidence of stones, sludge, polyps, wall thickening or pericholecystic fluid. COMMON BILE DUCT: Normal in caliber measuring 0.47 cm in diameter. RIGHT KIDNEY: Multiple simple cysts are seen, the largest at the upper pole measuring 1.5 cm, at the interpolar aspect 2.8 cm, and at the lower pole 1.2 cm. These require no imaging follow-up. No hydronephrosis or renal calculi. The kidney measures 10.3 cm in maximum dimension. LEFT KIDNEY: Multiple simple cysts are seen, the largest at the upper pole measuring 2.9 cm, at the interpolar aspect 3.4 cm, and at the lower pole 4.0 cm. These require no imaging follow-up. No hydronephrosis or renal calculi. The kidney measures 12.8 cm in maximum dimension. SPLEEN: Normal. The spleen measures 7.3 cm in maximum dimension. FREE FLUID: None. US/US abdomen complete IMPRESSION: There is generalized increase in hepatic echotexture, consistent with fatty infiltration or hepatocellular disease. Please correlate clinically. No focal hepatic mass or intrahepatic biliary dilatation is seen.
== END 2022-10-26 10:26 | disposition home or self-care (01) ==
LOC: HO.HMGCX 10:25
PROVIDERS: PCP Internal Medicine; Visit Provider Internal Medicine
DX: F10.21 Alcohol dependence, in remission (principal)
CPT/HCPCS: 76700

== ENCOUNTER 2022-11-08 11:29 | Outpatient (REF) | payer MEDICARE, MEDICAID, SELFPAY ==
[2022-11-08 12:02] LABS: MANUAL DIFF FLAG NO
[2022-11-08 12:43] LABS: Basophils Percent Auto 0.4 % (0-2); Eosinophils Absolute Auto 0.1 X10*3/uL (0.0-0.4); Eosinophils Percent Auto 2.5 % (0-4); Hematocrit 31.1 % (42.0-52.0); Hemoglobin 9.8 g/dl (14.0-18.0); Imm Gran Abs Auto 0.02 X10*3/uL (0.00-0.03); Imm Gran Pct Auto 0.4 % (0.0-0.4); Lymphocytes Absolute Auto 1.4 X10*3/uL (1.2-4.9); Lymphocytes Percent Auto 28.2 % (20-40); Mean Corpuscular HGB Conc 31.5 g/dl (31.0-36.0); Mean Corpuscular Hemoglobin 32.6 pg (27.0-33.0); Mean Corpuscular Volume 103.3 fL (80.0-98.0); Mean Platelet Volume 8.9 fL (9.4-12.4); Monocytes Absolute Auto 0.7 X10*3/uL (0.1-1.2); Monocytes Percent Auto 14.8 % (2-11); Neutrophils Absolute Auto 2.6 x10*3/uL (2.0-8.3); Neutrophils Percent Auto 53.7 % (45-73); Platelet Count 153 X10*3/uL (160-400); Red Blood Count 3.01 X10*6/uL (4.60-5.80); Red Cell Distribution Width 13.6 % (11.0-16.0); White Blood Count 4.8 X10*3/uL (4.8-10.8)
[2022-11-08 13:58] LABS: Albumin Level 3.7 g/dL (3.5-5.0); Calcium 9.4 mg/dL (8.4-10.2); Magnesium 1.9 mg/dL (1.6-2.6); Phosphorus 3.6 mg/dL (2.7-4.5)
[2022-11-08 14:05] LABS: Vitamin D 25-OH Total 27.4 ng/mL (>30)
[2022-11-08 14:21] LABS: Anion Gap 14 (12-20)
[2022-11-08 14:23] LABS: Blood Urea Nitrogen 21 mg/dL (9-16); Carbon Dioxide 29 mmol/L (22-29); Chloride 106 mmol/L (96-108); Estimated Glomerular Filt Rate 36; Potassium 4.1 mmol/L (3.3-5.1); Sodium 145 mmol/L (135-145)
[2022-11-10 15:54] LABS: Calcium (PTHI) 8.8 mg/dL (8.6-10.3); PTHI 45 pg/mL (16-77)
== END 2022-11-08 11:30 | disposition home or self-care (01) ==
LOC: HO.LAB 11:29
PROVIDERS: PCP Internal Medicine; Visit Provider Internal Medicine Nephrology
DX: N18.32 Chronic kidney disease, stage 3b (principal)
CPT/HCPCS: 36415; 80051; 82040; 82306; 82310; 82565; 83735; 83970; 84100; 84520; 85025

== ENCOUNTER 2022-11-12 | Outpatient (REF) | payer MEDICARE, MEDICAID, SELFPAY ==
[2022-11-13 14:59] LABS: Appearance Urine Cloudy; Color Urine Yellow; Glucose Urine UA Negative (Negative); Leukocyte Esterase Urine Moderate (2+) (Negative); Nitrite Urine Negative (Negative); PH 5.5 (5.0-9.0); Specific Gravity - Urine 1.025 (1.005-1.025); UMIC TRIGGER UA YES; Urine Blood Small (1+) (Negative); Urine Ketones Trace mg/dL (Negative); Urine Protein Trace mg/dL (Neg-Trace)
[2022-11-13 15:15] LABS: Bacteria Urine 4+ (None Seen); Calcium Oxalate Crystals Urine Present; Hyaline Casts Urine 0-2 /LPF (0-2); WBC Urine >50 /HPF (0-5)
[2022-11-13 15:32] LABS: Protein/Creatinine Ratio, Ur 0.07 (<0.2); Total Protein Urine Random 18 mg/dL (<12)
== END 2022-11-12 00:01 | disposition home or self-care (01) ==
LOC: HO.LNP
PROVIDERS: Visit Provider Internal Medicine Nephrology
DX: N18.32 Chronic kidney disease, stage 3b (principal); R82.90 Unspecified abnormal findings in urine
CPT/HCPCS: 81001; 82043; 82570; 84156; 87086

== ENCOUNTER 2023-01-01 13:55 | Outpatient (AMB) | payer MEDICARE, SELFPAY ==
--- NOTE | 2023-01-01 13:56 | MHC.OFFVIS ---
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 Accompanied by: worker Allergies No Known Allergies Allergy (Verified 01/01/23 13:59) Medication List - Last Reconciled 01/01/23 by Luis Johns MD acetaminophen 500 mg PO Q6H PRN albuterol sulfate 90 mcg/actuation (Ventolin HFA) 90 mcg inhalation DAILY aspirin 81 mg PO DAILY benztropine 0.5 mg PO DAILY cyanocobalamin (vitamin B-12) (Vitamin B-12) 1,000 mcg PO DAILY docusate sodium 100 mg PO BID [id number] truong-tit [id number] 30 SPF (Eucerin Daily Protection) 1 ea topical DAILY ergocalciferol (vitamin D2) 50,000 units PO USEASDIRECTD famotidine 40 mg PO DAILY furosemide (Lasix) 40 mg PO QAM guaifenesin 400 mg PO Q6H PRN haloperidol 10 mg PO BEDTIME haloperidol 5 mg PO BEDTIME hydralazine 50 mg PO BID lisinopril 40 mg PO DAILY metoprolol succinate ER 50 mg PO DAILY montelukast 10 mg PO DAILY nifedipine ER 60 mg PO DAILY oxybutynin chloride ER 10 mg PO DAILY potassium chloride ER 10 mEq PO DAILY simvastatin 20 mg PO BEDTIME tamsulosin 0.4 mg PO DAILY HPI HPI Comments History of Present Illness Details Nikita is here for evaluation regarding question of syncope. The history is somewhat vague as they were not able to give much information. Apparently he has passed out probably a couple of times few months back but again, uncertain details. His behavioral health case manager comes with him as patient has schizophrenia. According to her, he was taking his medications too close together and she felt that that was what led to the passing out episodes. Once the meds were more spaced out, he apparently felt much better. Otherwise, patient has random episodes of dizziness. Lot of times this happens when he is in the shower. He is not able to elaborate that much. Otherwise no symptoms like angina or shortness of breath. No known coronary disease. He is on many blood pressure medications. Also has chronic kidney disease. [facility] Medical History (Updated 01/01/23 @ 14:22 by Luis Johns MD) Essential hypertension Constipation Vasovagal syncope Chronic acquired lymphedema Surgical History History of hydrocelectomy Family History Unknown No problems noted. Social History Household Members: None Housing: Apartment Alcohol intake: former Patient Tobacco Use Status: Current everyday Tobacco user Tobacco use type: Cigarette and Cigar service: Yes ([employer]) Current occupational status: retired Review of Systems Const Denies chills, Denies daytime sleepiness, Denies fatigue, Denies fever(s), Denies frequent falls, Denies night sweats, Denies snoring, Denies weakness, Denies weight gain and Denies weight loss Eyes Denies loss of vision ENT Denies dizziness and Denies hearing loss Card Denies chest pain, Denies chest pain with activity, Denies syncope, Denies rapid heart rate, Denies edema, Denies claudication, Denies leg edema, Denies lightheadedness, Denies palpitations, Denies dyspnea, Denies dyspnea on exertion and Denies orthopnea Resp Denies cough, Denies excessive phlegm production, Denies dyspnea, Denies dyspnea on exertion, Denies snoring and Denies wheezing GI Denies abdominal pain, Denies hematochezia, Denies change in bowel habits, Denies change in stool character, Denies heartburn, Denies nausea and Denies vomiting Denies hematuria, Denies dysuria and Denies urinary frequency Musc Denies arthralgias, Denies muscle weakness, Denies numbness and Denies tingling Skin/Breast Denies nail changes and Denies rash Neuro Denies Abnormal speech present, Denies dizziness, Denies syncope, Denies frequent falls, Denies loss of vision, Denies memory loss, Denies numbness, Denies tingling and Denies weakness Psych Denies depression and Denies memory loss Endo Denies fatigue and Denies palpitations Aller/Immun Denies wheezing Physical Exam Vital Signs: Last Vital Signs Pulse 49 L 01/01/23 13:57 BP 116/60 01/01/23 13:57 BMI result Body Mass Index 32.6 Neuro Speech: No Abnormal speech present Assessment & Plan Assessment & Plan (1) Syncope: Code(s): R55 - Syncope and collapse Qualifiers: Syncope type: unspecified Qualified Code(s): R55 - Syncope and collapse (2) Essential hypertension: Code(s): I10 - Essential (primary) hypertension Plan EKG scanned in the patient's chart from PCP shows sinus rhythm without any clear-cut findings with ventricular rate of 66/Min. Under the study from July shows sinus bradycardia at 59/Min with nonspecific ST-T changes with normal [place] and corrected QT. Symptoms possibly related to blood pressure issues as the websphere portal architect states that it got much better after the meds were spaced out. We will get echocardiogram for cardiac function assessment. 2 week Holter monitor as there is a concern for slow heart rates, but doubt this to be the primary etiology. Follow-up after testing. Orders: Orders ECG 14 day holter monitor Today R55 - Syncope and collapse CA echo transthoracic complete Today R55 - Syncope and collapse Coding Level of Care Code New Pt Level 3 (81683) Diagnoses Syncope, unspecified syncope type R55 Syncope type: unspecified Essential hypertension I10
[2023-01-01 13:57] VITALS: BP 116/60; PULSE 49; BMI 32.6
== END 2023-01-01 14:17 | disposition home or self-care (01) ==
PROVIDERS: Visit Provider Internal Medicine
DX: R55 Syncope and collapse (principal); I10 Essential (primary) hypertension
CPT/HCPCS: 99203

== ENCOUNTER → 2023-01-01 13:55 | Outpatient (BNVA) | payer MEDICARE, MEDICAID, SELFPAY | PROVIDERS: Visit Provider Internal Medicine | DX: I10 Essential (primary) hypertension (principal); R55 Syncope and collapse | CPT/HCPCS: 99202 ==

== ENCOUNTER → 2023-01-30 13:06 | Outpatient (REF) | payer MEDICARE, MEDICAID, SELFPAY ==
--- NOTE | 2023-01-30 13:10 | CA_ITS ---
Transthoracic Echocardiogram Patient (Last, First, Middle): Nikita Broussard, Gender: Male Date of : 1950 Age: 72 Procedure Date: 01/30/2023 Procedure Type: Transthoracic Echocardiogram Location: OP Height: 180.34 cm Weight: 116.12 kg BSA: 2.34 m2 Heart Rate: 52 bpm BP: 135 / 75 mmHg Business Account Leader: SAIMA Denney MD: Luis Johns MD Wet Inspector Optical Glass: Todd Arango MD Symptoms: R55 - Syncope and collapse Study Quality: Adequate ECG Rhythm: Sinus Conclusions: - 1. Normal LV ejection fraction of 55-60% with grade 1 diastolic dysfunction 2. Normal cardiac valvular Dopplers 3. Normal RV systolic pressure 4. Upper limits of normal ascending aortic size 5. No gross pericardial effusion Findings Left Ventricle Normal left ventricular size, thickness, and systolic function. The visually estimated ejection fraction is between 55-60%. Spectral Doppler is indicative of an impaired relaxation filling pattern. E/E prime ratio is <8, consistent with normal filling pressures. Evidence suggests grade I (mild) diastolic dysfunction. Peak GLS is -20.8%, which is within normal limits Right Ventricle Normal right ventricular cavity size and systolic function. Atria The left atrium is normal in size. There is no evidence of interatrial shunt. The right atrium is normal in size. Aortic Valve Normal aortic valve structure and function. There is no aortic valve stenosis. There is no aortic valve regurgitation. Mitral Valve Likely normal mitral valve structure and function. There is trace mitral valve regurgitation. There is no mitral valve stenosis. Pulmonic Valve The pulmonic valve was not well visualized. Tricuspid Valve Likely normal tricuspid valve structure and function. There is trace tricuspid valve regurgitation. The right ventricular systolic pressure is normal. The right ventricular systolic pressure is 31 mmHg. Normal right atrial pressure. There is no evidence of pulmonary hypertension. Great Vessels The pulmonary artery was not well visualized. Venous The inferior vena cava is normal in size and collapses greater than 50% with inspiration. Pericardium/Pleural There is no evidence of pericardial effusion. Measurements 2D Linear Measurements IVSd: 1.03 0.6-0.9/0.6-1.0 cm LVIDd: 5.12 3.9-5.3/4.2-5.9 cm LVIDd Index: 2.19 2.4-3.2/2.2-3.1 cm/m2 LVIDs: 3.31 2.0-3.6 cm LVPWd: 1.16 0.7-1.1 cm LA Diam: 2.90 2.7-3.8/3.0-4.0 cm LAIDs Index: 1.24 1.5-2.3 cm/m2 LV Mass: 266.66 67-162/88-224 g LV Mass Index: 113.96 43-95/49-115 g/m2 LVOT Diam: 2.20 3.0+(-)1.3 cm 2D Systolic Function EF 4C: 58.30 >55% EF 2C: 58.10 >55% EF BiP: 57.90 >55% Mitral Valve MV Pk E: 0.90 MV PK A: 1.00 MV Decel Time: 238.00 E/A: 0.90 E'Lateral: 10.70 E'Medial: 7.40 E/E' Med: 12.20 E/E' Lat: 8.40 PHT: 70.00 MVA PHT: 3.14 Decel [place]: 3.79 Aortic Valve AoV Pk Jona: 1.63 AoV Mn Jona: 1.11 AoV VTI: 0.41 AoV Pk Grad: 11.00 Aov Mn Grad: 6.00 NGHIA Cont.VTI: 3.09 LVOT LVOT Pk Jona: 1.39 LVOT Mn Jona: 0.90 LVOT VTI: 0.33 LVOT Pk Grad: 8.00 LVOT Mn Grad: 4.00 LVOT Diam: 2.20 LVOT Area: 3.80 Diastolic Function MV Pk E: 0.90 MV Pk A: 1.00 E/A: 0.90 E'Medial: 7.40 E/E' Med: 12.20 E' Laterial: 10.70 E/E' Lat: 8.40 Right Ventricle TAPSE (mm): 32.10 TVS' Jona: 12.70 Tricuspid Valve TR Pk Jona: 2.65 TR Pk Grad: 28.00 RA Press: 3.00 RVSP: 31.00 Great Vessels Aorta Sinus of Valsalva: 4.10 2.0-3.5 cm Ao Asc: 3.60 2.1-3.4 cm Pulmonary Valve PV Pk Jona: 1.17 Peak PV Grad: 5.00 Updated in Other Vendor System with Status of Final Todd Arango MD electronically signed on 01/31/2023 4:17:27 PM with status of Final
--- NOTE | 2023-01-30 13:10 | HM_ITS ---
Conclusion: 1. Patient was monitored for total period of 14 days 2. Baseline was normal sinus rhythm with average heart of 56 beats per minute 3. Frequent sinus bradycardia noted with heart rate below 60 beats per minute 66% of time without any significant pauses greater than 2.5 seconds 4. Frequent PACs noted with total burden of 8.5% with frequent short episodes of SVE longest lasting 9 beats 5. Rare PVCs noted with 1 episode of 5 beat run of wide complex arrhythmia which could represent nonsustained VT at 159 beats per minute 6. No patient reported events MTDD
== END ==
LOC: HO.CARD 13:06
PROVIDERS: PCP Internal Medicine; Visit Provider Internal Medicine
DX: R55 Syncope and collapse (principal)
CPT/HCPCS: 93246; 93306; 93356

== ENCOUNTER → 2023-01-30 13:10 | Outpatient (BNV) | payer MEDICARE, MEDICAID, SELFPAY | PROVIDERS: PCP Internal Medicine; Visit Provider Internal Medicine Cardiovascular Disease | DX: R00.1 Bradycardia, unspecified (principal) | CPT/HCPCS: 93248; 93306 ==

== ENCOUNTER 2023-02-28 13:34 | Outpatient (AMB) | payer MEDICARE, SELFPAY ==
[2023-02-28 13:36] VITALS: BP 110/60; PULSE 55; BMI 32.7
--- NOTE | 2023-02-28 13:36 | A.OFFVIS_ITS ---
Intake Vital Signs 02/28/23 13:36 Height 5 ft 11 in Weight 234 lb 9.149 oz BMI 32.7 BP 110/60 Blood Pressure Location Lt brachial Position Sitting Pulse 55 Pulse Source Pulse Oximeter Intake Visit Reasons: f/up testing hs Intake Note: f/up testing hs pt its feeling fine Flight Director Required: No Accompanied by: Self / Same As Patient Allergies No Known Allergies Allergy (Verified 02/28/23 13:56) Medication List - Last Reconciled 02/28/23 by Erika Seals NP acetaminophen 500 mg PO Q6H PRN albuterol sulfate 90 mcg/actuation (Ventolin HFA) 90 mcg inhalation DAILY aspirin 81 mg PO DAILY benztropine 0.5 mg PO DAILY cyanocobalamin (vitamin B-12) (Vitamin B-12) 1,000 mcg PO DAILY docusate sodium 100 mg PO BID [id number] truong-tit rosario-znox 30 SPF (Eucerin Daily Protection) 1 ea topical DAILY ergocalciferol (vitamin D2) 50,000 units PO USEASDIRECTD famotidine 40 mg PO DAILY furosemide (Lasix) 40 mg PO QAM haloperidol 10 mg PO BEDTIME haloperidol 5 mg PO BEDTIME hydralazine 50 mg PO BID lisinopril 40 mg PO DAILY metoprolol succinate ER 50 mg PO DAILY montelukast 10 mg PO DAILY oxybutynin chloride ER 10 mg PO DAILY potassium chloride ER 10 mEq PO DAILY simvastatin 20 mg PO BEDTIME tamsulosin 0.4 mg PO DAILY HPI HPI Comments History of Present Illness Details 72-year-old male presents today for a fo llow-up after gore and echocardiogram. He presents with his form tamper. He had an episode of vasovagal syncope but since spaced out his medications which has improved his symptoms. He reports he is doing fine. Denies chest pain, shortness of breath, palpitations, or syncope. Endorses hypersomnia during the day. Echo: EF 55-60%. No valvular abnormalities. Normal RV systolic pressures. Holter: Average rate 56 bpm. No signfiicant pauses. Frequent PACs. Rare PVCs. [facility] Medical History Essential hypertension Constipation Vasovagal syncope Chronic acquired lymphedema Surgical History History of hydrocelectomy Family History Unknown No problems noted. 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 Review of Systems Const Denies chills, Denies fatigue, Denies fever(s), Denies frequent falls, Denies weakness, Denies weight gain and Denies weight loss ENT Denies dizziness Card Denies chest pain, Denies leg edema, Denies lightheadedness, Denies palpitations, Denies dyspnea and Denies dyspnea on exertion Resp Denies cough, Denies dyspnea and Denies dyspnea on exertion GI Denies hematochezia Musc Denies abnormal gait, Denies muscle weakness, Denies numbness, Denies radiating pain into limb and Denies tingling Neuro Denies abnormal gait, Denies dizziness, Denies frequent falls, Denies numbness, Denies tingling and Denies weakness Endo Denies fatigue and Denies palpitations Physical Exam Vital Signs: Last Vital Signs Pulse 55 02/28/23 13:36 BP 110/60 02/28/23 13:36 BMI result Body Mass Index 32.7 Assessment & Plan Assessment & Plan (1) Syncope: Code(s): R55 - Syncope and collapse Qualifiers: Syncope type: unspecified Qualified Code(s): R55 - Syncope and collapse (2) Essential hypertension: Code(s): I10 - Essential (primary) hypertension (3) Bradycardia: Code(s): R00.1 - Bradycardia, unspecified (4) Hypersomnia: Code(s): G47.10 - Hypersomnia, unspecified Plan Offered sleep study - patient refused at this time. Blood pressure within goal today. Continue medications. No other syncopal episodes. Report if any occur or seek ED care. Will see back in 6 months or sooner if needed. Coding Level of Care Code Est Pt Level 4 (86723) Diagnoses Syncope, unspecified syncope type R55 Syncope type: unspecified Essential hypertension I10 Bradycardia R00.1 Hypersomnia G47.10
== END 2023-02-28 14:04 | disposition home or self-care (01) ==
PROVIDERS: PCP Internal Medicine; Visit Provider Nurse Practitioner
DX: R55 Syncope and collapse (principal); I10 Essential (primary) hypertension; R00.1 Bradycardia, unspecified; G47.10 Hypersomnia, unspecified
CPT/HCPCS: 99214

== ENCOUNTER → 2023-02-28 13:34 | Outpatient (BNVA) | payer MEDICARE, MEDICAID, SELFPAY | PROVIDERS: PCP Internal Medicine; Visit Provider Nurse Practitioner | DX: R55 Syncope and collapse (principal); I10 Essential (primary) hypertension; R00.1 Bradycardia, unspecified; G47.10 Hypersomnia, unspecified | CPT/HCPCS: 99212 ==

== ENCOUNTER 2023-08-22 13:15 | Outpatient (AMB) | payer MEDICARE, SELFPAY ==
[2023-08-22 13:51] VITALS: BP 110/60; PULSE 70; BMI 32.0
--- NOTE | 2023-08-22 13:51 | A.OFFVIS_ITS ---
Vital Signs 08/22/23 13:51 Height 5 ft 11 in Weight 229 lb 4.492 oz BMI 32.0 BP 110/60 Blood Pressure Location Lt brachial Position Sitting Pulse 70 Pulse Source Monitor Intake Visit Reasons: 6 mth f/up per AC Allergies No Known Allergies Allergy (Verified 08/07/23 15:47) Medication List - Last Reconciled 08/22/23 by Luis Johns MD acetaminophen 500 mg PO Q6H PRN albuterol sulfate 90 mcg/actuation (Ventolin HFA) 90 mcg inhalation DAILY aspirin 81 mg PO DAILY benztropine 0.5 mg PO DAILY cyanocobalamin (vitamin B-12) (Vitamin B-12) 1,000 mcg PO DAILY docusate sodium 100 mg PO BID [id number]-lfw truong-tit rosario-znox 30 SPF (Eucerin Daily Protection) 1 ea topical DAILY ergocalciferol (vitamin D2) 50,000 units PO USEASDIRECTD furosemide (Lasix) 40 mg PO QAM haloperidol 10 mg PO BEDTIME haloperidol 5 mg PO BEDTIME hydralazine 50 mg PO BID lisinopril 40 mg PO DAILY metoprolol succinate ER 50 mg PO DAILY montelukast 10 mg PO DAILY oxybutynin chloride ER 10 mg PO DAILY potassium chloride ER 10 mEq PO DAILY simvastatin 20 mg PO BEDTIME tamsulosin 0.4 mg PO DAILY HPI Comments Details: Nikita returns for follow-up. In the past, seen regarding syncopal episode. 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 It was felt that he was taking his medications close together and that led to some passing out episodes. Apparently meds were rearranged and then everything resolved. Otherwise no symptoms like angina or shortness of breath. No known cardiac issues. He is on BP medications. Also has CKD. [facility] Medical History Essential hypertension Constipation Vasovagal syncope Chronic acquired lymphedema Surgical History History of hydrocelectomy Family History Unknown No problems noted. 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 Review of Systems Const Denies weakness ENT Denies dizziness Card Denies chest pain, Denies chest pain with activity, Denies syncope, Denies rapid heart rate, Denies pedal edema, Denies edema, Denies leg edema, Denies lightheadedness, Denies palpitations, Denies dyspnea, Denies dyspnea on exertion and Denies orthopnea Resp Denies cough, Denies dyspnea and Denies dyspnea on exertion GI Denies hematochezia and Denies change in stool character Musc Denies abnormal gait, Denies muscle cramps, Denies muscle weakness, Denies numbness, Denies radiating pain into limb and Denies tingling Neuro Denies abnormal gait, Denies dizziness, Denies syncope, Denies numbness, Denies tingling and Denies weakness Endo Denies palpitations Physical Exam Vital Signs: Last Vital Signs Pulse 70 08/22/23 13:51 BP 110/60 08/22/23 13:51 BMI result Body Mass Index 32.0 Const General: comfortable and no acute distress Orientation/consciousness: patient oriented x3 HEENT Other: Unremarkable Head: Yes normal to inspection Neck Neck: Yes normal visual inspection Chest Chest palpation & inspection: normal inspection of the chest Resp Auscultation: clear to auscultation bilaterally Cardio Palpation: normal PMI Heart sounds: S1 normal heart sound present, S2 normal heart sound present, no gallops, no murmurs and no rubs GI Palpation (GI): Soft to palpation Back/Spine/Pelvis Other: unremarkable Skin General skin exam: no rashes or lesions noted Neuro General: patient oriented x3 Extrem General: Yes normal to inspection Psych Mental Status: mental status grossly normal Office Procedures EKG Details: EKG with sinus rhythm at 70/Min; no significant ST-T changes and otherwise unremarkable[place] [address]-[id number], Complete Assessment & Plan Assessment & Plan (1) Syncope: Code(s): R55 - Syncope and collapse Category: Medical Qualifiers: Syncope type: unspecified Qualified Code(s): R55 - Syncope and collapse (2) Essential hypertension: Code(s): I10 - Essential (primary) hypertension Category: Medical Plan Echocardiogram with normal LVEF of 55-60%, no significant valvular issues and otherwise unremarkable. Holter shows underlying sinus rhythm, sinus bradycardia, frequent PACs and rare PVCs. One episode of possible NSVT, 5 beats. Overall, syncopal episodes in the past possibly from low blood pressure as apparently got better after his medications were also based out. He has got no further symptoms whatsoever. At this time, no further recommendations. Gate Operator will contact us if any concerns. Coding Level of Care Code Est Pt Level 3 (20136) Diagnoses Syncope, unspecified syncope type R55 Syncope type: unspecified Essential hypertension I10 CPT Codes EKG - CPT: 31290-[id number], Complete ([id number])
== END 2023-08-22 14:23 | disposition home or self-care (01) ==
PROVIDERS: PCP Internal Medicine; Visit Provider Internal Medicine
DX: R55 Syncope and collapse (principal); I10 Essential (primary) hypertension
CPT/HCPCS: 93010; 99213

== ENCOUNTER → 2023-08-22 13:15 | Outpatient (BNVA) | payer MEDICARE, SELFPAY | PROVIDERS: PCP Internal Medicine; Visit Provider Internal Medicine | DX: R55 Syncope and collapse (principal); I10 Essential (primary) hypertension | CPT/HCPCS: 93005; 99212 ==

== ENCOUNTER 2023-09-04 13:08 | Outpatient (REF) | payer MEDICARE, SELFPAY ==
[2023-09-04 16:15] LABS: MANUAL DIFF FLAG NO
[2023-09-04 16:27] LABS: Basophils Absolute Auto 0.1 X10*3/uL (0.0-0.2); Basophils Percent Auto 0.6 % (0-2); Eosinophils Absolute Auto 0.3 X10*3/uL (0.0-0.4); Hemoglobin 8.7 g/dl (14.0-18.0); Imm Gran Abs Auto 0.06 X10*3/uL (0.00-0.03); Imm Gran Pct Auto 0.7 % (0.0-0.4); Lymphocytes Absolute Auto 1.7 X10*3/uL (1.2-4.9); Lymphocytes Percent Auto 21.3 % (20-40); Mean Corpuscular HGB Conc 31.1 g/dl (31.0-36.0); Mean Corpuscular Hemoglobin 32.3 pg (27.0-33.0); Mean Corpuscular Volume 104.1 fL (80.0-98.0); Mean Platelet Volume 8.5 fL (9.4-12.4); Monocytes Absolute Auto 0.9 X10*3/uL (0.1-1.2); Monocytes Percent Auto 11.2 % (2-11); Neutrophils Percent Auto 62.2 % (45-73); Platelet Count 255 X10*3/uL (160-400); Red Blood Count 2.69 X10*6/uL (4.60-5.80); White Blood Count 8.1 X10*3/uL (4.8-10.8)
== END 2023-09-04 13:09 | disposition home or self-care (01) ==
LOC: HO.HMGCLDS 13:08
PROVIDERS: PCP Internal Medicine; Visit Provider Internal Medicine
DX: D64.9 Anemia, unspecified (principal)
CPT/HCPCS: 36415; 85025

== ENCOUNTER 2023-12-12 12:07 | Outpatient (REF) | payer MEDICARE, SELFPAY ==
[2023-12-12 13:29] LABS: MANUAL DIFF FLAG NO
[2023-12-12 13:33] LABS: Appearance Urine Cloudy; Color Urine Yellow; Glucose Urine UA Negative (Negative); Leukocyte Esterase Urine Large (3+) (Negative); Nitrite Urine Positive (Negative); UMIC TRIGGER UA YES; Urine Blood Negative (Negative); Urine Ketones Negative (Negative); Urine Protein Negative (Neg-Trace)
[2023-12-12 13:57] LABS: Basophils Percent Auto 0.6 % (0-2); Eosinophils Absolute Auto 0.3 X10*3/uL (0.0-0.4); Hematocrit 28.8 % (42.0-52.0); Hemoglobin 8.9 g/dl (14.0-18.0); Imm Gran Abs Auto 0.02 X10*3/uL (0.00-0.03); Imm Gran Pct Auto 0.4 % (0.0-0.4); Lymphocytes Absolute Auto 1.9 X10*3/uL (1.2-4.9); Lymphocytes Percent Auto 35.7 % (20-40); Mean Corpuscular HGB Conc 30.9 g/dl (31.0-36.0); Mean Corpuscular Hemoglobin 32.1 pg (27.0-33.0); Mean Platelet Volume 9.1 fL (9.4-12.4); Monocytes Absolute Auto 0.7 X10*3/uL (0.1-1.2); Neutrophils Absolute Auto 2.5 x10*3/uL (2.0-8.3); Neutrophils Percent Auto 46.3 % (45-73); Platelet Count 162 X10*3/uL (160-400); Red Blood Count 2.77 X10*6/uL (4.60-5.80); Red Cell Distribution Width 13.2 % (11.0-16.0); White Blood Count 5.4 X10*3/uL (4.8-10.8)
[2023-12-12 13:59] LABS: Bacteria Urine 4+ (None Seen); Hyaline Casts Urine 0-2 /LPF (0-2); RBC Urine 0-2 /HPF (0-2); Squamous Epithelial Cell Urine 0-2 /HPF (0-2); WBC Clumps Urine Present; WBC Urine >50 /HPF (0-5)
[2023-12-12 14:12] LABS: Parathyroid Hormone Intact 66.5 pg/mL (8.7-77.1)
[2023-12-12 14:14] LABS: Albumin Level 3.7 g/dL (3.5-5.0); Anion Gap 12 (12-20); Blood Urea Nitrogen 37 mg/dL (9-16); Calcium 9.1 mg/dL (8.4-10.2); Carbon Dioxide 26 mmol/L (22-29); Chloride 111 mmol/L (96-108); Estimated Glomerular Filt Rate 25; Magnesium 2.2 mg/dL (1.6-2.6); Potassium 4.3 mmol/L (3.3-5.1); Sodium 145 mmol/L (135-145)
[2023-12-12 14:23] LABS: Creatinine Urine 86.72 mg/dL; Microalbum/Creatinine Ratio Ur 39.2 ug/mg cr (<30); Protein/Creatinine Ratio, Ur 0.12 (<0.2); Total Protein Urine Random 10 mg/dL (<12)
== END 2023-12-12 12:08 | disposition home or self-care (01) ==
LOC: HO.HMGCLDS 12:07
PROVIDERS: PCP Internal Medicine; Visit Provider Internal Medicine Nephrology
DX: I12.9 Hypertensive chronic kidney disease with stage 1 through stage 4 chronic kidney disease, or unspecified chronic kidney disease (principal); N18.32 Chronic kidney disease, stage 3b; R82.79 Other abnormal findings on microbiological examination of urine
CPT/HCPCS: 36415; 80051; 81001; 82040; 82043; 82310; 82565; 82570; 83735; 83970; 84100; 84156; 84520; 85025; 87086; 87088; 87186

== ENCOUNTER 2024-01-08 13:32 | Outpatient (REF) | payer MEDICARE, SELFPAY ==
[2024-01-08 13:55] LABS: MANUAL DIFF FLAG NO
[2024-01-08 14:56] LABS: Appearance Urine Cloudy; Color Urine Yellow; Glucose Urine UA Negative (Negative); Leukocyte Esterase Urine Large (3+) (Negative); Nitrite Urine Positive (Negative); PH 5.5 (5.0-9.0); UMIC TRIGGER UA YES; Urine Blood Negative (Negative); Urine Ketones Negative (Negative); Urine Protein Negative (Neg-Trace)
[2024-01-08 15:06] LABS: Basophils Percent Auto 0.7 % (0-2); Eosinophils Absolute Auto 0.3 X10*3/uL (0.0-0.4); Eosinophils Percent Auto 5.2 % (0-4); Hematocrit 29.9 % (42.0-52.0); Hemoglobin 9.3 g/dl (14.0-18.0); Imm Gran Abs Auto 0.02 X10*3/uL (0.00-0.03); Imm Gran Pct Auto 0.4 % (0.0-0.4); Lymphocytes Absolute Auto 1.8 X10*3/uL (1.2-4.9); Lymphocytes Percent Auto 32.4 % (20-40); Mean Corpuscular HGB Conc 31.1 g/dl (31.0-36.0); Mean Corpuscular Hemoglobin 32.6 pg (27.0-33.0); Mean Corpuscular Volume 104.9 fL (80.0-98.0); Mean Platelet Volume 9.3 fL (9.4-12.4); Monocytes Absolute Auto 0.5 X10*3/uL (0.1-1.2); Monocytes Percent Auto 9.4 % (2-11); Neutrophils Absolute Auto 2.9 x10*3/uL (2.0-8.3); Neutrophils Percent Auto 51.9 % (45-73); Platelet Count 166 X10*3/uL (160-400); Red Blood Count 2.85 X10*6/uL (4.60-5.80); Red Cell Distribution Width 14.1 % (11.0-16.0); White Blood Count 5.6 X10*3/uL (4.8-10.8)
[2024-01-08 15:22] LABS: Bacteria Urine 4+ (None Seen); RBC Urine 0-2 /HPF (0-2); WBC Urine >50 /HPF (0-5)
[2024-01-08 15:34] LABS: Parathyroid Hormone Intact 74.2 pg/mL (8.7-77.1)
[2024-01-08 15:42] LABS: Albumin Level 3.7 g/dL (3.5-5.0); Anion Gap 14 (12-20); Blood Urea Nitrogen 38 mg/dL (9-16); Calcium 9.4 mg/dL (8.4-10.2); Carbon Dioxide 24 mmol/L (22-29); Chloride 110 mmol/L (96-108); Estimated Glomerular Filt Rate 25; Iron 73 mcg/dL (45-160); Magnesium 2.1 mg/dL (1.6-2.6); Percent Iron Saturation 38 % (15-50); Phosphorus 3.3 mg/dL (2.7-4.5); Potassium 4.3 mmol/L (3.3-5.1); Sodium 144 mmol/L (135-145); Total Iron Binding Capacity 193 mcg/dL (228-428); Unsaturated Iron Binding 120 ug/dL
[2024-01-08 15:49] LABS: Ferritin 260 ng/mL (20-250); Vitamin D 25-OH Total 29.5 ng/mL (>30)
[2024-01-08 16:20] LABS: Creatinine Urine 112.46 mg/dL; Microalbum/Creatinine Ratio Ur 34.6 ug/mg cr (<30); Protein/Creatinine Ratio, Ur 0.12 (<0.2); Total Protein Urine Random 14 mg/dL (<12)
== END 2024-01-08 13:33 | disposition home or self-care (01) ==
LOC: HO.LAB 13:32
PROVIDERS: PCP Internal Medicine; Visit Provider Internal Medicine Nephrology
DX: N18.4 Chronic kidney disease, stage 4 (severe) (principal); N25.0 Renal osteodystrophy; R80.1 Persistent proteinuria, unspecified
CPT/HCPCS: 36415; 80051; 81001; 82040; 82043; 82306; 82310; 82565; 82570; 82728; 83540; 83735; 83970; 84100; 84156; 84520; 85025

== ENCOUNTER 2024-04-01 10:43 | Inpatient (IN) | payer MEDICARE, SELFPAY ==
[2024-04-01] VITALS (7 sets, daily range): BP systolic 148–164; BP diastolic 84–97; PULSE 63–99; RESP 14–20; TEMP 36.6–36.7; O2SAT 95–99; BMI 31.8
--- NOTE | ~2024-04-01 | XR_ITS ---
EXAMINATION: XR CHEST CLINICAL INFORMATION: cp COMPARISON: X-ray dated September 19, 2010 TECHNIQUE: Frontal view of the chest was obtained. FINDINGS: No consolidation, pleural effusion or pneumothorax. No hyperinflation. Mild prominence of the interstitial lung markings. Cardiomediastinal silhouette is normal in size. Multilevel thoracic spondylosis. XR/XR chest 1V IMPRESSION: Consider mild interstitial edema in the correct clinical settings superimposed acute small airway inflammatory process cannot be excluded. Electronically signed by: Mike Linton MD 04/01/2024 11:32 AM [facility]
--- NOTE | ~2024-04-01 | CT_ITS ---
EXAMINATION: CT HEAD WITHOUT CONTRAST CLINICAL INFORMATION: confusion COMPARISON: None available. TECHNIQUE: Contiguous axial imaging was performed from the skull base to vertex without intravenous administration of contrast. This CT examination was performed using dose optimization techniques as appropriate, variously including the following: *Automated exposure control *Adjustment of mA and/or kV according to patient size (this includes techniques or standardized protocols for targeted exams where dose is matched to indication/reason for exam; i.e. extremities or head) *Use of iterative reconstruction technique DLP: 978 mGy-cm FINDINGS: Limited by patient's motion artifact. Bilateral multifocal patchy and confluent deep periventricular white matter involving centrum semiovale and lepe radiata. Bilateral symmetric calcifications in the putamen. No acute intracranial hemorrhage, mass effect, midline shift, hydrocephalus or herniation. Prominence of the extra-axial CSF spaces cerebral sulci and ventricles. Posterior cranial fossa contents demonstrated no intracranial hemorrhage or gross mass effect. Sellar/suprasellar region demonstrated CSF intrasellar prominence. Tympanic cavities and mastoid cells are aerated. Status post resection right parotid gland. There is questionable exophthalmos, bilaterally. The extraocular muscles are normal. Calcified plaques in the cavernous segments both ICA. CT/CT head/brain wo IV con IMPRESSION: Small vessel occlusive disease. Superimposed acute stroke/nonhemorrhagic ischemia cannot be excluded. Secretions in the basal ganglia which could be related to hyperparathyroidism versus pseudohypoparathyroidism. Electronically signed by: Mike Linton MD 04/04/2024 02:17 PM [facility]
--- NOTE | 2024-04-01 11:08 | ECG_ITS ---
Test Reason : cp Blood Pressure : */* mmHG Vent. Rate : 70 BPM Atrial Rate : 70 BPM P-R Int : 126 ms QRS Dur : 76 ms QT Int : 408 ms P-R-T Axes : 61 28 51 degrees QTcB Int : 440 ms Normal sinus rhythm with sinus arrhythmia Normal ECG When compared with ECG of 03-Jul-2022 16:09, ST no longer depressed in Inferior leads Nonspecific T wave abnormality no longer evident in Inferior leads Referred By: Marissa He Electronically Signed By: OLIMPIA CERON
--- NOTE | 2024-04-01 11:09 | ED_ITS ---
HPI - SOB/Dyspnea General Chief Complaint: Dyspnea Stated Complaint: SOB X1M, 90% RA,NEB GIVEN PER EMS Time Seen by Provider: 04/01/24 10:56 History of Present Illness HPI Narrative: Patient is a 73-year-old male coming from home. Patient presented with having shortness of breath coughing upper respiratory symptoms ongoing for about a month. Patient denies any history of congestive heart failure. No chest pain or fever. Positive history of smoking. No diaphoresis. Related Data Home Medications ?Medication ?Instructions ?Recorded ?Confirmed acetaminophen 500 mg tablet 500 mg PO Q6H PRN Pain 10/04/22 10/08/23 albuterol sulfate 90 mcg/actuation 90 mcg inhalation DAILY 10/04/22 10/08/23 aerosol inhaler (Ventolin HFA) aspirin 81 mg tablet,delayed 81 mg PO DAILY 10/04/22 10/08/23 release benztropine 0.5 mg tablet 0.5 mg PO DAILY 10/04/22 10/08/23 docusate sodium 100 mg capsule 100 mg PO BID 10/04/22 10/08/23 pmhgjin-qpawpos-axvuo salicy-titan 1 ea topical DAILY 10/04/22 10/08/23 diox-zinc oxide SPF 30 lotion (Eucerin Daily Protection) haloperidol 10 mg tablet 10 mg PO BEDTIME 10/04/22 10/08/23 haloperidol 5 mg tablet 5 mg PO BEDTIME 10/04/22 10/08/23 hydralazine 50 mg tablet 50 mg PO BID 10/04/22 10/08/23 lisinopril 40 mg tablet 40 mg PO DAILY 10/04/22 10/08/23 metoprolol succinate 50 mg 50 mg PO DAILY 10/04/22 10/08/23 tablet,extended release 24 hr montelukast 10 mg tablet 10 mg PO DAILY 10/04/22 10/08/23 potassium chloride 10 mEq 10 meq PO DAILY 10/04/22 10/08/23 tablet,extended release simvastatin 20 mg tablet 20 mg PO BEDTIME 10/04/22 10/08/23 tamsulosin 0.4 mg capsule 0.4 mg PO DAILY 10/04/22 10/08/23 ergocalciferol (vitamin D2) 25,000 50,000 unit PO USEASDIRECTD 11/13/22 10/08/23 unit capsule furosemide 40 mg tablet (Lasix) 40 mg PO QAM 11/13/22 10/08/23 oxybutynin chloride 10 mg 10 mg PO DAILY 01/01/23 10/08/23 tablet,extended release 24 hr Previous Rx's ?Medication ?Instructions ?Recorded cyanocobalamin (vitamin B-12) 1,000 mcg PO DAILY #90 tabs 03/20/24 1,000 mcg tablet (Vitamin B-12) Allergies Allergy/AdvReac Type Severity Reaction Status Date / Time No Known Allergies Allergy Verified 04/01/24 11:06 Review of Systems 2 Review of Systems: Positive coughing positive shortness of breath Yes all other systems are reviewed and are negative [facility] Past Medical History Attestation statement: The following information was validated with the patient. Medical History Essential hypertension Constipation Vasovagal syncope Chronic acquired lymphedema Surgical History History of hydrocelectomy Family History Family History Unknown No problems noted. 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 Oriented X3. No acute distress. Eyes: Pupils equal, round and reactive to light. ENT: Pharynx normal. Neck: Normal inspection. Neck supple. No lymph nodes noted. No crepitus CVS: Normal heart rate and rhythm. Pulses normal. Normal S1 and S2 Respiratory: No respiratory distress. Breath sounds normal. No Wheezing. No rales Abdomen: Soft and nontender. No rigidity. No distention. good BS x4 Skin: Skin warm and dry. Normal skin color. Normal skin turgor. Extremities: 2+lower extremity edema. Neurovascular intact to all extremities. No Lacerations. No Rash Neuro: Oriented X 3. No motor deficit. No sensory deficit. Moving all extermities. No slurred speech Medications Administered Discontinued Medications Generic Name Dose Route Start Last Admin Trade Name Freq PRN Reason Stop Dose Admin Albuterol Sulfate 2.5 mg/ 0 mg 04/01/24 13:01 04/01/24 13:14 Albuterol/Ipratropium 3 ml INHALE 04/01/24 13:02 1 dose ONCE ONE Administration Methylprednisolone Sodium Succinate 125 mg 04/01/24 11:08 04/01/24 12:22 Methylprednisolone Sod Succ 125 Mg/2 Ml Vial IVPUSH 04/01/24 11:09 125 mg ONCE ONE Administration Medical Decision Making Medical Decision Making [facility] Narrative: Patient very weak tired. Positive coughing upper respiratory symptoms. It has been ongoing for days. EMS reported that patient's house was in disarray. Patient felt weak and tired. His hemoglobin is 8.6. This is approximately baseline. No signs of worsening anemia. Patient's BNP is 200. Flu COVID RSV positive for influenza. Ambulated patient. Sats maintained about 95. Patient felt very weak. Had physical therapy ambulate patient. He recommended additional help rehab. Patient did not want rehab. At this point patient's urine returned. Positive evidence for urinary tract infection. Will start patient on Rocephin. Will admit for further evaluation Differential Diagnosis Differential Diagnoses: The differential diagnosis associated with the presentation includes Influenza, UTI, electrolyte disturbance Admission/Observation Consideration of admission/observation: Escalation of care including admission/observation considered Consult Healthcare Provider Management of the patient was discussed with: Hospitalist Lab Data [facility] Lab Attestation statement: I reviewed the patient's lab results. 04/01/24 12:15 04/01/24 12:15 Labs: Lab Results 04/01/24 04/01/24 04/01/24 Range/Units 12:04 12:15 13:11 WBC 6.0 (4.8-10.8) X10*3/uL RBC 2.65 L (4.60-5.80) X10*6/uL Hgb 8.6 L (14.0-18.0) g/dl Hct 28.1 L (42.0-52.0) % MCV 106.0 H (80.0-98.0) fL MCH 32.5 (27.0-33.0) pg MCHC 30.6 L (31.0-36.0) g/dl RDW 13.9 (11.0-16.0) % Plt Count 144 L (160-400) X10*3/uL MPV 8.7 L (9.4-12.4) fL Immature Gran % (Auto) 1.8 H (0.0-0.4) % Neut % (Auto) 76.3 H (45-73) % Lymph % (Auto) 14.3 L (20-40) % [place] % (Auto) 7.4 (2-11) % Eos % (Auto) 0.0 (0-4) % Baso % (Auto) 0.2 (0-2) % Lymph # (Auto) 0.9 L (1.2-4.9) X10*3/uL [place] # (Auto) 0.4 (0.1-1.2) X10*3/uL Eos # (Auto) 0.0 (0.0-0.4) X10*3/uL Baso # (Auto) 0.0 (0.0-0.2) X10*3/uL Abs Immat Gran (auto) 0.11 H (0.00-0.03) X10*3/uL Absolute Neuts (auto) 4.5 (2.0-8.3) x10*3/uL Absolute Nucleated RBC 0.000 (0.0-0.012) X10*3/uL Nucleated RBC % (auto) 0.0 (0.0-0.2) /100WBC Sodium 145 (135-145) mmol/L Potassium 4.4 (3.3-5.1) mmol/L Chloride 116 H (96-108) mmol/L Carbon Dioxide 26 (22-29) mmol/L Anion Gap 7 L (12-20) BUN 24 H (9-16) mg/dL Creatinine 1.51 H (0.5-1.4) mg/dL Estim Creat Clear Calc 51.7 Estimated GFR 45 Random Glucose 128 H (60-115) mg/dL Calcium 8.8 D (8.4-10.2) mg/dL Total Bilirubin 0.3 (0.0-1.0) mg/dL Direct Bilirubin 0.2 (0.0-0.5) mg/dL AST 50 H (5-37) U/L ALT 43 H (0-40) U/L Alkaline Phosphatase 83 (39-117) U/L Troponin I High Sens 39.3 H (<3.5-35.0) ng/L B-Natriuretic Peptide 227 H (<100) pg/mL Total Protein 7.2 (6.5-8.0) g/dL Albumin 3.7 (3.5-5.0) g/dL Urine Color Yellow Urine Appearance Cloudy Urine pH 5.5 (5.0-9.0) Ur Specific [place] 1.015 (1.005-1.025) Urine Protein 100 (2+) H (Neg-Trace) mg/dL Urine Glucose (UA) Negative (Negative) mg/dL Urine Ketones Negative (Negative) mg/dL Urine Blood Trace H (Negative) Urine Nitrite Positive H (Negative) Ur Leukocyte Esterase Moderate (2+) H (Negative) Urine RBC 0-2 (0-2) /HPF Urine WBC 21-50 H (0-5) /HPF Ur Squamous Epith Cells 3-5 (0-2) /HPF Urine Bacteria 4+ (None Seen) Hyaline Casts 3-5 (0-2) /LPF Influenza Type A (PCR) POSITIVE A (Negative) Influenza Type B (PCR) NEGATIVE (Negative) RSV RNA Qual (PCR) NEGATIVE (Negative) SARS-CoV-2 RNA (RT-PCR) NEGATIVE (Negative) Independent Interpretation I performed an independent interpretation of an: EKG and Plain X-Ray (Question mild CHF noted) Radiology Impression Discussion of test interpretation with radiology: I have reviewed the radiologist's reading. External Record Review External record reviewed: Inpatient record Chronic Conditions Patient?s care impacted by: Hypertension Social Determinants Patient?s care significantly limited by Social Determinants of Health including: Low income and Problems related to primary support group Discharge Plan Discharge Clinical Impression: Acute UTI, Influenza Patient Disposition: Admitted As Inpatient Print Language: [place]
[2024-04-01 12:22] LABS: MANUAL DIFF FLAG NO
[2024-04-01] MEDS: methylPREDNISolone Sod Succ 125 MG/2 ML VIAL IVPUSH (12:22)
[2024-04-01 12:31] LABS: Basophils Percent Auto 0.2 % (0-2); Hematocrit 28.1 % (42.0-52.0); Hemoglobin 8.6 g/dl (14.0-18.0); Imm Gran Abs Auto 0.11 X10*3/uL (0.00-0.03); Imm Gran Pct Auto 1.8 % (0.0-0.4); Lymphocytes Absolute Auto 0.9 X10*3/uL (1.2-4.9); Lymphocytes Percent Auto 14.3 % (20-40); Mean Corpuscular HGB Conc 30.6 g/dl (31.0-36.0); Mean Corpuscular Hemoglobin 32.5 pg (27.0-33.0); Mean Platelet Volume 8.7 fL (9.4-12.4); Monocytes Absolute Auto 0.4 X10*3/uL (0.1-1.2); Monocytes Percent Auto 7.4 % (2-11); Neutrophils Absolute Auto 4.5 x10*3/uL (2.0-8.3); Neutrophils Percent Auto 76.3 % (45-73); Platelet Count 144 X10*3/uL (160-400); Red Blood Count 2.65 X10*6/uL (4.60-5.80); Red Cell Distribution Width 13.9 % (11.0-16.0)
[2024-04-01 12:49] LABS: Influenza A PCR POSITIVE (Negative); Influenza B PCR NEGATIVE (Negative); Resp Syncy Virus RNA Qual PCR NEGATIVE (Negative); SARS COV2 PCR INHOUSE NEGATIVE (Negative)
[2024-04-01 12:51] LABS: Alanine Aminotransferase 43 U/L (0-40); Albumin Level 3.7 g/dL (3.5-5.0); Alkaline Phosphatase 83 U/L (39-117); Anion Gap 7 (12-20); Aspartate Amino Transferase 50 U/L (5-37); Bilirubin Direct 0.2 mg/dL (0.0-0.5); Bilirubin Total 0.3 mg/dL (0.0-1.0); Blood Urea Nitrogen 24 mg/dL (9-16); Calcium 8.8 mg/dL (8.4-10.2); Carbon Dioxide 26 mmol/L (22-29); Chloride 116 mmol/L (96-108); Creatinine Clr Calc Pharmacy 51.7; Estimated Glomerular Filt Rate 45; Glucose Random 128 mg/dL (60-115); Potassium 4.4 mmol/L (3.3-5.1); Sodium 145 mmol/L (135-145); Total Protein 7.2 g/dL (6.5-8.0)
--- NOTE | 2024-04-01 12:54 | PC.NURSE ---
pt arrives to dept from e, pt a&o however slow to respond. 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 pt has productive wet cough, with some expiratory wheezes. Pt arrives in dirty clothes, and appears dishevelled. Pt stated to nurse he is not sure the last time he was changed. pt clothing was removed, pt undergarments stained with stool, however pt skin is clean dry and intact. no open areas visualized. pt was changed into hospital attire and placed on a monitoring analyst. 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 20G IV placed in left upper arm. Pt rec duoneb updraft enroute with ems- pt was removed from supplemental O2 and has been maintaining SpO2 at 96-97% on RA. ED broch protocol initiated, respiratory at bedside at this time
[2024-04-01 12:56] LABS: Troponin-I High Sensitivity 39.3 ng/L (<3.5-35.0)
[2024-04-01 13:04] LABS: B Type Natriuretic Peptide 227 pg/mL (<100)
[2024-04-01] MEDS: Albuterol Sulfate 2.5 MG, Albuterol/Iprat 2.5/0.5MG 3 ML 3 ML INHALE (13:14)
[2024-04-01 13:22] LABS: Appearance Urine Cloudy; Color Urine Yellow; Glucose Urine UA Negative (Negative); Leukocyte Esterase Urine Moderate (2+) (Negative); Nitrite Urine Positive (Negative); PH 5.5 (5.0-9.0); Specific Gravity - Urine 1.015 (1.005-1.025); UMIC TRIGGER UACC YES; Urine Blood Trace (Negative); Urine Ketones Negative (Negative); Urine Protein 100 (2+) mg/dL (Neg-Trace)
[2024-04-01 13:25] LABS: Bacteria Urine 4+ (None Seen); RBC Urine 0-2 /HPF (0-2); UACC Culture Trigger YES; WBC Urine 21-50 /HPF (0-5)
--- OUTSIDE RECORDS SUMMARY | 2024-04-01 13:27 | XMS_ITS | Encounter Summary ---
Author Organization [employer] Address [address] [place] [address] 7 [place] [address] Care Team Providers Care Nurse Epidemiologist Name Role Phone Panda Crooks MD Primary Care Provide r Encounter Details Date Type Department Care Team (Late st Contact Info) Description 07/12/2022 Abstract [facility] [address] [place] [address] Panda Crooks MD [address] [place] [address] Social History Tobacco Use Types Packs/Day Years Used Date Smoking Tobacco: Every Day Cigars Passive Smoke Exposure: Current Smokeless Tobacco: Never Alcohol Use Standard Drinks/Week Comments Not Currently 0 (1 standard drink = 0.6 oz pur e alcohol) Depression Answer Date Recorded Patient Health Questionnaire-9 Score 12 06/29/2022 Depression Answer Date Recorded Patient Health Questionnaire-2 Score 1 06/29/2022 Sex and Gender Information Value Date Recorded Sex Assigned at Male 01/02/2022 10:16 AM EDT Legal Sex Male 10:16 AM EDT Gender Identity Male 01/02/2022 10:16 AM EDT Sexual Orientation Straight 01/02/2022 10 :16 AM EDT COVID-19 Exposure Response Date Recorded In the last 10 days, have yo u been in contact with someone who was confirmed or suspected to have Coronavirus/COVID-19? No / Unsure 06/29/2022 11:30 AM EDT documented as of this encounter Plan of Treatment Not on file documented as of this encounter Procedures Procedure Name Priority Date/Time Associated Diagnosis Comments HM COLONOSCOPY Routine 12/18/2014 documented in this encounter Results * Hm Colonoscopy (12/18/2014) Colonoscopy Normal Normal 12/18/2014 Otilia Chacha Ruelas - 12/18/2014 2:03 PM EDT Recommended 10 year follow up us Historical Provider HEALTH MAINTENANCE Final Result documented in this encounter Visit Diagnoses Not on filedocumented in this encounter Additional Health Concerns Assessment Noted Time PHQ-9 Depression Total Score: 12 023 12:21 PM EDT documented as of this encounter Care Teams Nurse Epidemiologist Relationship Specialty Start Date End Date Panda Crooks MD [address] [place] [id number] PCP - General Internal Medicine 12/18/13 documented as of this encounter
--- OUTSIDE RECORDS SUMMARY | 2024-04-01 13:27 | XMS_ITS | Encounter Summary ---
Author Organization [employer] Address [address] [place] [address] 7 [place] [address] Care Team Providers Care Sql Server Architect Name Role Phone Panda Crooks MD Primary Care Provide r Encounter Details Date Type Department Care Team (Late st Contact Info) Description 09/11/2022 Orders Only [facility]INE [address] [place] [address] Elodia Rivero MD [address] [place] [address] Social History Tobacco Use Types Packs/Day Years [...] Orientation Straight 01/02/2022 10 :16 AM EDT documented as of this encounter Plan of Treatment Not on file documented as of this encounter Visit Diagnoses Not on filedocumented in this encounter Additional Health Concerns Assessment Noted Time PHQ-9 Depression Total Score: 12 06/29/ 023 12:21 PM EDT documented as of this encounter Care Teams Sql Server Architect Relationship Specialty Start Date End Date Panda Crooks MD [address] [place] [address] PCP - General Internal Medicine 12/18/13 documented as of this encounter
--- OUTSIDE RECORDS SUMMARY | 2024-04-01 13:27 | XMS_ITS | Encounter Summary ---
Author Organization [facility] Address [address] [facility] [address] [place] [address] Phone Care Team Providers Care Bank Secrecy Act Officer Name Role Phone Panda Muniz MD Primary Care Provider Unav ailable Reason for Visit * Reason Comments Med Refill Encounter Details Date Type Department Care Team (Late Contact Info) Description 09/28/2020 Refill [facility] [address] [facility] [address] [place] [address] Sami Morales MD Social History Tobacco Use Types Packs/Day Years Used Date Smoking Tobacco: Every Day Cigarettes Sex and Gender Information Value Date Recorded Sex Assigned at Not on file Legal Sex Male 5:11 PM EST Gender Identity Not on file Sexual Orientation Not on file documented as of this encounter Miscellaneous Notes * Telephone Encounter - Alfonso Cole MD - 10/07/2020 8:57 AM EDT Needs f/u in 5-6 weeks with me 1. tell them I sent rx but no refils 2. They must see me or have a telehealth visit with me before I can renew it again 3. when u call them be sure to make the f/u appt at the same time u inform them th rx was sent by me documented in this encounter Plan of Treatment Upcoming Encounters Date Type Department Care Team (Late Contact Info) Description 06/30/2024 1:30 PM EDT Office Visit [facility] [address] [place] [address] [place] [phone] Alfonso Cole MD [address] [facility] [address] [place] [address] documented as of this encounter Visit Diagnoses Not on filedocumented in this encounter Care Teams Bank Secrecy Act Officer Relationship Specialty Start Date End Date Panda Muniz MD PCP - General 03/15/20 documented as of this encounter
--- OUTSIDE RECORDS SUMMARY | 2024-04-01 13:27 | XMS_ITS | Clinical Summary ---
Author Organization [employer] Address [address] [place] [address] 7[address] [place] [address] Care Team Providers Care Solar Crew Member Name Role Phone Panda Crooks MD Primary Care Provide r Allergies Active Allergy Reactions Criticality Noted Date Comments Thiazide-Type Diuretics 04/06/2010 Other reaction(s): unspecified: hypotension Medications haloperidol (Haldol) 5 MG tablet Take 1 tablet by mouth. Active haloperidol (Haldol) 10 MG tablet Take 1 tablet by mouth. Active tamsulosin (Flomax) 0.4 MG 24 hr capsule Take 1 capsule by mouth at bed time. Active benztropine (Cogentin) 0.5 MG tablet Take 1 tablet by mouth. Active furosemide (Lasix) 20 MG tablet Take 40 mg by mouth. 06/06/19 23 Active albuterol 108 (90 Base) MCG/ACT inhaler Inhale 2 puffs every 4 (four) hours if needed for wheezing or shortness of breath. Maximum 8 puffs per day 18 g 3 09/12/19 23 Active famotidine (Pepcid) 40 MG tablet TAKE 1 TABLET BY MOUTH AT BEDTIME 90 tablet 1 01/05/20 23 Active montelukast (Singulair) 10 MG tabletIndications :Mild intermittent asthma without complication take 1 tablet (10MG) by oral route every day in the evening 90 tablet 3 03/09/19 24 Active docusate sodium (Colace) 100 MG capsuleIndication s:Constipation, unspecified constipation type TAKE 1 CAPSULE BY MOUTH 2 TIMES DAILY NEEDED 180 capsule 1 09/05/19 24 Active Emollient (Eucerin Daily Protection/SPF30) lotionIndications :Xerosis of skin Use twice daily 118 mL 11 11/01/19 24 Active lisinopril 40 MG tablet TAKE 1 TABLET BY MOUTH EVERY DAY 30 tablet 5 11/12/19 24 Active metoprolol succinate XL (Toprol-XL) 50 MG 24 hr tablet TAKE 1 TABLET BY MOUTH EVERY DAY 30 tablet 5 01/01/20 24 Active aspirin 81 MG EC tablet Take 1 tablet (81 mg) by mouth Once per day. 90 tablet 1 01/22/20 24 Active simvastatin (Zocor) 20 MG tabletIndications :Mixed hyperlipidemia TAKE 1 TABLET (20 MG) BY MOUTH AT BEDTIME. 30 tablet 02/07/20 24 Active FT Pain Reliever Ex Str Adult 500 MG tabletIndications :Pain TAKE 1 TABLET BY MOUTH EVERY 6 HOURS IF NEEDED FOR MODERATE PAIN 30 tablet 03/18/19 25 Active potassium chloride CR (Klor-Con) 10 MEQ ER tablet TAKE 1 TABLET (10 MEQ) BY MOUTH ONCE PER DAY. DO NOT CRUSH OR CHEW. 30 tablet 03/25/19 25 Active potassium chloride CR (Klor-Con) 10 MEQ ER tablet TAKE 1 TABLET (10 MEQ) BY MOUTH ONCE PER DAY. DO NOT CRUSH OR CHEW. 30 tablet 02/07/20 24 025 Discontinued Acetaminophen Extra Strength 500 MG tabletIndications :Pain TAKE 1 TABLET BY MOUTH EVERY 6 HOURS IF NEEDED FOR MODERATE PAIN 30 tablet 02/19/20 24 025 Discontinued Active Problems Problem Noted Date Diagnosed Date Stage 3b chronic kidney disease 11/01/2023 Assessment & Plan (11/01/2023 10:43 AM EDT): Pt seeing Dr Cole Last seen 12/2022 Routine physical examination 11/01/2023 Assessment & Plan (11/01/2023 10:44 AM EDT): Pt is here for a routine physical exam Within normal limits Preventative health care 11/01/2023 Assessment & Plan (11/01/2023 10:46 AM EDT): PSA 07/06/2020 Normal 0.69 Colonoscopy: 12/2014 Showed a Tubular Adenoma, Dr Frausto stated that still he would be at low risk and recommended to repeat in 10 yrs Vaccines: Flu shot: Declined Pneumovax: 01/20/2016 Shingles: 01/06/2015 Td: 04/20/2015 Vasovagal syncope 06/29/2022 Assessment & Plan (11/01/2023 10:40 AM EDT): Pt here for f/u with previous c/o one episode of blacking out Upon further questioning, he is unclear if this is more of a pre-syncopal episode Etiology ? Vasovagal, Vs Vasomotor, vs cardiogenic EKG: NSR, HR 66 bpm Cardiology did eval last seen 08/2023 Echocardiogram with normal LVEF of 55-60%, no significant valvular issues and otherwise unremarkable. Holter shows underlying sinus rhythm, sinus bradycardia, frequent PACs and rare PVCs. One episode of possible NSVT, 5 beats. Overall, syncopal episodes in the past possibly from low blood pressure as apparently got better after his medications were also based out. He has got no further symptoms whatsoever. At this time, no further recommendations were made by Cardiology Neurology consult for EEG 08/22/2023. Records requested of EEG Assessment & Plan (06/29/2022 1:52 PM EDT): Pt here with c/o one episode of blacking out Upon further questioning, he is unclear if this is more of a pre-syncopal episode Etiology ? Vasovagal, Vs Vasomotor, vs cardiogenic EKG: NSR, HR 66 bpm Plan: BMP, CBC, TSH Cardiology consult for ECHO Neurology consult for EEG Follow up after evaluation Scrotal sac enlargement 02/09/2022 Assessment & Plan (02/09/2022 1:36 PM EST): Pt with c/o scrotal sac enlargement, last note from Urologist back in july mentions it but it also mentioned pt was not interested in pursuing an scrotal US. Today he tells me that he is Will order today Tinea cruris 02/09/2022 Assessment & Plan (02/09/2022 1:38 PM EST): Exam indicative of this, discuss with pt and foster care social worker the need for better hygene, pt only bathing once or twice a week. dry charge process attendant promised to help with bathing Also recommended to keep area dry and use Clotrimazole BID and to continue for 1 more week after completion Obesity 05/31/2021 Tobacco dependence syndrome 05/31/2021 Renal osteodystrophy 05/31/2021 Benign prostatic hyperplasia 04/26/2021 Assessment & Plan (11/01/2023 10:47 AM EDT): Patient here for a f/u has a history of BPH and hematuria, care managed by [facility]. Last seen 01/23/2023 Recommended 1 year follow up. Patient will continue Oxybutynin 10mg, 2 tablets daily and Flomax 0.4mg, 1 tablet daily as management of BPH. Patient will follow-up with Urology Assessment & Plan (02/09/2022 1:12 PM EST): Patient here for a f/u has a history of BPH and hematuria, care managed by [facility]. Last seen July 2021 Recommended 1 year follow up. Patient will continue Oxybutynin 10mg, 2 tablets daily and Flomax 0.4mg, 1 tablet daily as management of BPH. Patient will follow-up with Urology Proteinuria 10/05/2020 Macrocytic anemia 02/15/2017 Assessment & Plan (11/01/2023 10:37 AM EDT): Under the care of Hematology Last seen 10/08/2023 Started on Procrit Paranoid schizophrenia 10/26/2016 Assessment & Plan (11/01/2023 10:57 AM EDT): Patient reports he is doing well. Denies SI and HI. Care managed by Psych provider Jerrod Burgos with [facility] clinic. Meds: Cogentin 0.5 mg PM Haldol 10 mg PM Haldol 5mg PM Assessment & Plan (02/09/2022 1:19 PM EST): Patient reports he is doing well. Denies SI and HI. Care managed by Psych provider Jerrod Burgos with [facility] clinic. Unsure what medications patient is taking for condition. Haldol is listed in medication list with two different dosages. Patient will follow-up in 3 months. Essential hypertension 01/26/2015 Assessment & Plan (11/01/2023 11:00 AM EDT): Patient here for a f/u blood pressure in clinic was controlled Patient well controlled on medications Will continue Lisinopril 40mg, 1 tablet daily, Metoprolol 50mg, 1 tablet daily. Hydralazine 50 mg po BID Encouraged patient to follow low salt diet. Assessment & Plan (02/09/2022 1:09 PM EST): Patient here for a f/u blood pressure in clinic was controlled Patient well controlled on medications Will continue Lisinopril 40mg, 1 tablet daily, Procardia XL 60mg, 1 tablet daily, and Metoprolol 50mg, 1 tablet daily. Encouraged patient to follow low salt diet. Tubular adenoma 01/26/2015 Acute cough 05/28/2012 Assessment & Plan (02/09/2022 2:08 PM EST): Pt still smoking, c/o cough non productive, no fever, no sob Discussed need to quit smoking, offered nicotine patches, lozenges, pt declined. Rapid flu and Covid-19 negative Plan: Supportive measures, Guaifenesin prn Hyperlipidemia 03/12/2012 Macrocytosis 03/12/2012 Resolved Problems Problem Noted Date Diagnosed Date Resolved Date Chronic kidney disease (CKD), stage II (mild) 08/07/19 15 11/01/2023 Assessment & Plan (02/09/2022 1:21 PM EST): Patient last nephrology with Dr Cole Last labs on 12/05/2021 results: Creatinine 1.53 GFR 45 Will continue to monitor. Patient will follow-up with white spooler. Encounters Date Type Department Care Team Description 04/01/2024 Telephone [facility] [address] [place] [address] Panda Crooks MD Nurse Triage 04/01/2024 Refill [facility] [address] [place] [address] Panda Crooks MD 03/20/2024 Refill [facility] [address] [place] [address] Hyun Barrientos MD 03/17/2024 Refill [facility] [address] [place] [address] Panda Crooks MD Pain 02/18/2024 Refill [facility] [address] [place] [address] Panda Crooks MD Pain 02/07/2024 Refill [facility] [address] [place] [address] Panda Crooks MD 02/06/2024 Refill [facility] [address] [place], [place] [phone] Elodia Rivero MD Mixed hyperlipidemia 01/22/2024 Refill [facility] [address] [place], [place] [phone] Panda Crooks MD 01/01/2024 Refill [facility] [address] [place], [place] [phone] Agueda Loza MD from Last 3 Months Immunizations Name Administration Dates Next Due Moderna Covid-19 Vaccine 12+ 03/10/2021,06/05/19 21,05/07/2020 Pneumococcal Conjugate PCV 13 07/20/2015 Pneumococcal Polysaccharide PPSV23 07/25/2016 TD (adult), 2 Lf tetanus tox oid, preservative free, adsorbed 11/17/1999 Tdap 04/20/2015 Zoster, Recombinant 06/29/2021,04/26/2021 Zoster, live 06/29/2021,04/26/2021,01/26/2015 Social History Tobacco Use Types Packs/Day Years Used Date Smoking Tobacco: Every Day Cigars Passive Smoke Exposure: Current Smokeless Tobacco: Never Tobacco Cessation:Ready to Q uit: Not Asked; Counseling Given: Not Answered Alcohol Use Standard Drinks/Week Comments Not Currently 0 (1 standard drink = 0.6 oz pur e alcohol) Depression Answer Date Recorded Patient Health Questionnaire-9 Score 0 11/01/2023 Patient Health Questionnaire-9 Score 0 11/01/2023 Last PHQ-9: Questionnaire Data Not on file 0 11/01/2023 Housing Stability Answer Date Recorded What is your housing situation today? I have deena saavedra 12/22/[address] you li ve. Do you have problems with any of the following? None of the above 12/22/2022 Food Insecurity Answer Date Recorded Within the past 12 months, y ou worried that your food would run out before you got money to buy more: Never True 12/22/2022 Within the past 12 months,th e food you bought just didn't last and you didn't have enough money to get more: Never True Transportation Answer Date Recorded In the past 12 months, has l ack of transportation kept you from medical appts, meetings, work or from getting things needed for daily living? No 12/22/2022 Utilities Answer Date Recorded In the past 12 months, has t he electric, gas, oil or water company threatened to shut off services in your home? No 12/22/2022 Depression Answer Date Recorded Patient Health Questionnaire-2 Score 0 11/01/2023 Sex and Gender Information Value Date Recorded Sex Assigned at Male 01/02/2022 10:16 AM EDT Legal Sex Male 10:16 AM EDT Gender Identity Male 01/02/2022 10:16 AM EDT Sexual Orientation Straight 01/02/2022 10 :16 AM EDT Last Filed Vital Signs Vital Sign Reading Time Taken Comments Blood Pressure 109/63 11/01/2023 10:44 AM EDT Pulse 77 11/01/2023 10:44 AM EDT Temperature 36.2 ??C (97.1 ??F) 11/01/2023 10:44 AM E DT Respiratory Rate 22 11/01/2023 10:44 AM EDT Oxygen Saturation 95% 11/01/2023 10:44 AM EDT Inhaled Oxygen Concentration - - Weight 104 kg (228 lb 6.4 oz) 11/01/2023 10:44 A M EDT Height 180.3 cm (5' 11 ) 11/01/2023 10:44 AM EDT Body Mass Index 31.86 11/01/2023 10:44 AM EDT Plan of Treatment Health Maintenance Due Date Last Done Comments CT Colonography 1948 FIT DNA/Cologuard 1948 FIT 1948 FOBT 1948 Sigmoidoscopy 1948 Alcohol/Substance Use Screening 1960 Hepatitis C Screening 1966 Hepatitis A Vaccines (1 of 2 - Risk 2-dose series) 12/24/1967 COVID-19 Vaccine ( season) 2023 03/10/2021, 06/04/2020, 05/07/2020 Influenza Vaccine (#1) 2023 RSV Patients and Patients Aged 60 years or older (1 - 1-dose 75+ series) 12/24/2023 SDOH Screening 04/19/2024 04/19/2023 Depression Screening 10/31/2024 11/01/2023, 11/01/19 24 Tobacco Screening 10/31/2024 11/01/2023 Colonoscopy 12/18/2024 12/18/2014, 12/18/2014 Colorectal Cancer Screening 12/18/2024 DTaP/Tdap/Td Vaccines (2 - Td or Tdap) 04/20/2025 04/20/2015, 11/17/1999 Lipid Panel 01/20/2026 01/20/2021 Pneumococcal Vaccine: 65+ Years Completed 07/25/2016, 07/20/2015 Zoster Vaccines Completed 06/29/2021, 06/04, 04/26/2021, Additional history exists HIB Vaccines Aged Out No longer eligi ble based on patient's age to complete this topic HPV Vaccines Aged Out No longer eligi ble based on patient's age to complete this topic Hepatitis B Vaccines Aged Out No long er eligible based on patient's age to complete this topic IPV Vaccines Aged Out No longer eligi ble based on patient's age to complete this topic Meningococcal Vaccine Aged Out No evaristo miranda eligible based on patient's age to complete this topic RSV under 20 months Aged Out No longe r eligible based on patient's age to complete this topic Rotavirus Vaccines Aged Out No longer eligible based on patient's age to complete this topic Procedures Procedure Name Priority Date/Time Associated Diagnosis Comments URINALYSIS, COMPLETE, WITH REFLEX TO CULTURE Routine 04/01/2024 1:11 PM EST LIPID PANEL, STANDARD Routine 01/20/2021 1:42 PM EST COLONOSCOPY Routine 12/18/2014 from Last 3 Months or Most Recently Relevant to Health Maintenance Results * (ABNORMAL) Urinalysis, Complete, with Reflex to Culture (04/01/2024 1:11 PM EST) Color Urine Yellow [facility] Appearance Urine Cloudy [facility] PH 5.5 5.0 - 9.0 [facility] Glucose Urine UA Negative Negative mg/dL [facility] Urine Blood Trace(A) Negative [facility] Specific Heath - Urine 1.015 1.005 - 1.025 [facility] Urine Protein 100 (2+)(A) Neg-Trace mg/dL [facility] Urine Ketones Negative Negative mg/dL [facility] Nitrite Urine Positive(A) Negative [facility] Leukocyte Esterase Urine Moderate (2+)(A) Negative [facility] 04/01/2024 1:11 PM EST 04/01/2024 1:17 PM EST Narrative [facility] - 04/01/2024 1:23 PM EST Urine, Clean Catch us Generic External Data Provider LAB URINE ORDERAB LES Final Result Performing Organization Address City/State/[facility] Co de Phone Number [facility] [address] [place] [phone] * (ABNORMAL) LIPID PANEL, STANDARD (01/20/2021 1:42 PM EST) Chol/HDLC Ratio 3.4 <5.0 (calc) [facility] Cholesterol, Total 133 <200 mg/dL [facility] HDL Cholesterol 39(L) > OR = 40 mg/dL [facility] LDL Cholesterol 75 mg/dL (calc) [facility] Comment: Reference range: <100 ?? Desirable range <100 mg/dL for primary prevention; ?? <70 mg/dL for patients with CHD or diabetic patients ?? with > or = 2 CHD risk factors. ?? LDL-C is now calculated using the Glendy ?? calculation, which is a validated novel method providing ?? better accuracy than the Friedewald equation in the ?? estimation of LDL-C. ?? Omar REAGAN et al. MARIANNA. 2013;310(19): 9248-7694 ?? (http://[employer]/faq/KKZ696) Non-HDL Cholesterol 94 <130 mg/dL (calc) [facility] Comment: For patients with diabetes plus 1 major ASCVD risk ?? factor, treating to a non-HDL-C goal of <100 mg/dL ?? (LDL-C of <70 mg/dL) is considered a therapeutic ?? option. Triglycerides 105 <150 mg/dL [facility] 01/20/2021 1:42 PM EST Panda Farmer MD LAB BLOOD ORDERABLES Final Result Performing Organization Address City/State/[facility] Co de Phone Number [facility] [address] * Colonoscopy (12/18/2014) Colonoscopy Tubular Adenoma Comment:Dr. Montoya Historical Provider HEALTH MAINTENANCE Final Result from Last 3 Months or Most Recently Relevant to Health Maintenance Insurance [place] [address] [place] [phone] [facility] STANDARD [employer] MEDICARE REPLACEMENT Care Teams Solar Crew Member Relationship Specialty Start Date End Date Panda Crooks MD [address] [place] [phone] PCP - General Internal Medicine 12/18/13
--- OUTSIDE RECORDS SUMMARY | 2024-04-01 13:27 | XMS_ITS | Encounter Summary ---
Author Organization [employer] Address [address] [place] [address] [address] [place] [address] Care Team Providers Care Parachute Supervisor Name Role Phone Panda Crooks MD Primary Care Provide r Encounter Details Date Type Department Care Team (Late st Contact Info) Description 09/02/2022 Orders Only [facility] [address] [place], [place] [phone] Panda Crooks MD [address] [place] [address] Macrocytic anemia (Primary Dx) Social History Tobacco Use Types Packs/Day Years [...] as of this encounter Plan of Treatment Scheduled Orders Name Type Priority Associated Diagnoses Orde r Schedule CBC auto differential Lab Routine Macrocytic anemia Expected: 09/02/2022 (Approximate), Expires: 09/03/2023 Iron, TIBC And Ferritin Panel Lab Routine Macrocytic anemia Expected: 09/02/2022 (Approximate), Expires: 09/03/2023 Vitamin B12/Folate, Serum Panel Lab Routine Macrocytic anemia Expected: 09/02/2022 (Approximate), Expires: 09/03/2023 documented as of this encounter Visit Diagnoses Diagnosis Macrocytic anemia- Primary documented in this encounter Additional Health Concerns Assessment Noted Time PHQ-9 Depression Total Score: 12 023 12:21 PM EDT documented as of this encounter Care Teams Parachute Supervisor Relationship Specialty Start Date End Date Panda Crooks MD [address] [place] [phone] PCP - General Internal Medicine 12/18/13 documented as of this encounter
--- OUTSIDE RECORDS SUMMARY | 2024-04-01 13:27 | XMS_ITS | Encounter Summary ---
Author Organization [employer] Address [address] [facility] [address] [place] [address] Care Team Providers Care Doweling Machine Operator Name Role Phone Panda Crooks MD Primary Care Provide r Reason for Visit * Reason Comments Med Refill Encounter Details Date Type Department Care Team ([facility] Contact Info) Description 03/17/2024 Refill [facility] [address] [place] [address] Panda Crooks MD [address] [place] [address] Pain Social History Tobacco Use Types Packs/Day Years [...] as of this encounter Visit Diagnoses Diagnosis Pain Generalized pain documented in this encounter Additional Health Concerns Assessment Noted Time PHQ-9 Depression Total Score: 0 11/01/19 24 10:45 AM EDT documented as of this encounter Care Teams Doweling Machine Operator Relationship Specialty Start Date End Date Panda Crooks MD [address] [place] [id number] PCP - General Internal Medicine 12/18/13 documented as of this encounter
--- OUTSIDE RECORDS SUMMARY | 2024-04-01 13:27 | XMS_ITS | Encounter Summary ---
Author Organization [facility] Address [address] [facility] [address] [place] [address] Phone Care Team Providers Care Oil Spraying Machine Operator Name Role Phone Panda Muniz MD Primary Care Provider Unav ailable Reason for Visit * Reason Comments Med Refill Encounter Details Date Type Department Care Team (Late Contact Info) Description 03/28/2022 Refill [facility] [address] [facility] [address] [place] [address] Sami Morales MD Social History Tobacco Use Types Packs/Day Years Used Date Smoking Tobacco: Every Day Cigarettes Alcohol Use Standard Drinks/Week Comments Never 0 (1 standard drink = 0.6 oz pur e alcohol) Sex and Gender Information Value Date Recorded Sex Assigned at Not on file Legal Sex Male 5:11 PM EST Gender Identity Not on file Sexual Orientation Not on file documented as of this encounter Plan of Treatment Upcoming Encounters Date Type Department Care Team (Late st Contact Info) Description 06/30/2024 1:30 PM EDT Office Visit [facility] [address] [place] [address] [place] [phone] Alfonso Cole MD [address] [facility] [address] [place] [phone] documented as of this encounter Visit Diagnoses Not on filedocumented in this encounter Care Teams Oil Spraying Machine Operator Relationship Specialty Start Date End Date Panda Muniz MD PCP - General 03/15/20 documented as of this encounter
--- OUTSIDE RECORDS SUMMARY | 2024-04-01 13:27 | XMS_ITS | Encounter Summary ---
Author Organization [employer] Address [address] [facility] 7 [place] [address] Care Team Providers Care Corn Detasseler Machine Operator Name Role Phone Panda Crooks MD Primary Care Provide r Reason for Visit * Reason Comments Med Refill Encounter Details Date Type Department Care Team ([facility] st Contact Info) Description 03/20/2024 Refill [facility] [address] [place], [place] [phone] Hyun Barrientos MD [address] [place], [place] [phone] Social History Tobacco Use Types Packs/Day Years [...] Time PHQ-9 Depression Total Score: 0 11/01/19 10:45 AM EDT documented as of this encounter Care Teams Corn Detasseler Machine Operator Relationship Specialty Start Date End Date Panda Crooks MD [address] [place] [phone] PCP - General Internal Medicine 12/18/13 documented as of this encounter
--- OUTSIDE RECORDS SUMMARY | 2024-04-01 13:27 | XMS_ITS | Encounter Summary ---
Author Organization [facility] Address [address] [facility] [address] [place] [address] Phone Care Team Providers Care Literary Writer Name Role Phone Panda Muniz MD Primary Care Provider Unav ailable Reason for Visit * Reason Comments Med Refill Encounter Details Date Type Department Care Team (Late Contact Info) Description 05/15/2022 Refill [facility] [address] [facility] [address] [place] [address] Sami Morales MD Social History [...] Visit [facility] [address] [place] [address] [place] [phone] Alfonso Cole MD [address] [facility] [address] [place] [phone] documented as of this encounter Visit Diagnoses Not on filedocumented in this encounter Care Teams Literary Writer Relationship Specialty Start Date End Date Panda Muniz MD PCP - General 03/15/20 documented as of this encounter
--- OUTSIDE RECORDS SUMMARY | 2024-04-01 13:27 | XMS_ITS | Encounter Summary ---
Author Organization [facility] Address [address] [facility] [address] [place] [address] Phone Care Team Providers Care Chicken Hanger Name Role Phone Panda Muniz MD Primary Care Provider Unav ailable Reason for Visit * Reason Comments Med Refill Encounter Details Date Type Department Care Team (Late Contact Info) Description 04/05/2022 Refill [facility] [address] [facility] [address] [place] [address] Sami Morales MD Social History [...] Visit [facility] [address] [place] [address] [place] [phone] Alfonso Cole MD [address] [facility] [address] [place] [phone] documented as of this encounter Visit Diagnoses Not on filedocumented in this encounter Care Teams Chicken Hanger Relationship Specialty Start Date End Date Panda Muniz MD PCP - General 03/15/20 documented as of this encounter
--- OUTSIDE RECORDS SUMMARY | 2024-04-01 13:27 | XMS_ITS | Clinical Summary ---
Author Organization [facility] Address [address] [place] [address] Care Team Providers Care Volunteer Services Director Name Role Phone Panda Muniz MD Primary Care Provider Unav ailable Allergies Active Allergy Reactions Criticality Noted Date Comments Thiazide-Type Diuretics 04/06/2010 Other reaction(s): unspecified: hypotension Medications aspirin (ST ADRIANNA) 81 MG EC tablet Take 81 mg by mouth 1 (one) time each day Active baclofen (LIORESAL) 10 MG tablet Take 10 mg by mouth 3 (three) times a day Active benztropine (COGENTIN) 0.5 MG tablet Take 0.5 mg by mouth at bed time 09/29/2020 Active tamsulosin (FLOMAX) 0.4 MG 24 hr capsule Take 0.4 mg by mouth every night 09/27/2020 Active folic acid (FOLVITE) 1 MG tablet Take 1 mg by mouth 1 (one) time each day 09/28/2020 Active metoprolol succinate XL (TOPROL XL) 50 MG 24 hr tablet Take 50 mg by mouth 1 (one) time each day Active oxybutynin XL (DITROPAN-XL) 10 MG 24 hr tablet Take 10 mg by mouth 1 (one) time each day Active simvastatin (ZOCOR) 20 MG tablet Take 20 mg by mouth 1 (one) time each day in the evening 07/01/2020 Active haloperidol (HALDOL) 5 MG tablet 11/30/2020 Active montelukast (SINGULAIR) 10 MG tablet Take 10 mg by mouth 1 (one) time each day in the evening 11/02/2020 Active docusate sodium (COLACE) 100 MG capsule Take 100 mg by mouth in the morning and 100 mg in the evening. Active lisinopril 40 MG tablet TAKE 1 TABLET BY MOUTH EVERY DAY 30 tablet 07/20/2022 Active hydrALAZINE 50 MG tablet Take 1 tablet (50 mg total) by mouth in the morning and 1 tablet (50 mg total) before bedtime. 180 tablet 3 07/18/2023 Active furosemide (LASIX) 20 MG tabletIndicatio ns:Stage 3b chronic kidney disease (HCC) Take 2 tablets (40 mg total) by mouth 1 (one) time each day 60 tablet 11 07/25/2023 Active ergocalciferol 1.25 MG (44531 UT) capsule TAKE 1 CAPSULE (50,000 UNITS TOTAL) BY MOUTH EVERY 30 (THIRTY) DAYS 1 capsule 10 09/04/2023 Active Active Problems Problem Noted Date Diagnosed Date Chronic kidney disease, stage 4 (severe) 024 Vasovagal syncope 06/29/2022 12/21/2022 Overview (12/21/2022): Last Assessment & Plan: Pt here with c/o one episode of blacking out Upon further questioning, he is unclear if this is more of a pre-syncopal episode Etiology ? Vasovagal, Vs Vasomotor, vs cardiogenic EKG: NSR, HR 66 bpm Plan: BMP, CBC, TSH Cardiology consult for ECHO Neurology consult for EEG Follow up after evaluation Lilly sanders 02/09/2022 Overview (06/05/2022): Last Assessment & Plan: Exam indicative of this, discuss with pt and care manager cna the need for better hygene, pt only bathing once or twice a week. farm or ranch animal caretaker promised to help with bathing Also recommended to keep area dry and use Clotrimazole BID and to continue for 1 more week after completion Disorder of scrotum 02/09/2022 Overview (06/05/2022): Last Assessment & Plan: Pt with c/o scrotal sac enlargement, last note from Urologist back in july mentions it but it also mentioned pt was not interested in pursuing an scrotal US. Today he tells me that he is Will order today Tobacco dependence syndrome 05/31/2021 Schizophrenia 05/31/2021 Obesity 05/31/2021 Macrocytic anemia 05/31/2021 Benign neoplasm 05/31/2021 Renal osteodystrophy 05/31/2021 Benign prostatic hyperplasia 04/26/2021 Overview (06/05/2022): Last Assessment & Plan: Patient here for a f/u has a history of BPH and hematuria, care managed by [facility]. Last seen July 2021 Recommended 1 year follow up. Patient will continue Oxybutynin 10mg, 2 tablets daily and Flomax 0.4mg, 1 tablet daily as management of BPH. Patient will follow-up with Urology Stage 3b chronic kidney disease 11/30/2020 Chronic kidney disease stage 2 10/05/2020 Hypertensive chronic kidney disease, unspecified, with chronic kidney disease stage I through stage IV, or unspecified 10/05/2020 Proteinuria 10/05/2020 Tubular adenoma 01/26/2015 Essential hypertension 01/26/2015 Overview (06/05/2022): Last Assessment & Plan: Patient here for a f/u blood pressure in clinic was controlled Patient well controlled on medications Will continue Lisinopril 40mg, 1 tablet daily, Procardia XL 60mg, 1 tablet daily, and Metoprolol 50mg, 1 tablet daily. Encouraged patient to follow low salt diet. Acute cough 05/28/2012 Overview (06/05/2022): Last Assessment & Plan: Pt still smoking, c/o cough non productive, no fever, no sob Discussed need to quit smoking, offered nicotine patches, lozenges, pt declined. Rapid flu and Covid-19 negative Plan: Supportive measures, Guaifenesin prn Macrocytosis 03/12/2012 Hyperlipidemia 03/12/2012 Encounters Date Type Department Care Team Description 01/08/2024 Orders Only [facility] [address] [phone] Alfonso Cole MD 12/31/2023 Orders Only [facility] [address] [place] [address] Alfonso Cole MD Chronic kidney disease, stage 4 (severe) (HCC); Renal osteodystrophy; Persistent proteinuria from Last 3 Months Immunizations Name Administration Dates Next Due Moderna SARS-COV-2 03/10/2021,06/04/2020, 021 Pneumococcal Conjugate 13-Valent 07/20/2015 Pneumococcal Polysaccharide 07/25/2016 Shingrix 06/29/2021,04/26/2021 Td 11/17/1999 Tdap 04/20/2015 Zoster 01/26/2015 Social History Tobacco Use Types Packs/Day Years Used Date Smoking Tobacco: Every Day Cigarettes Tobacco Cessation:Counseling Given: No Alcohol Use Standard Drinks/Week Comments Never 0 (1 standard drink = 0.6 oz pur e alcohol) Sex and Gender Information Value Date Recorded Sex Assigned at Not on file Legal Sex Male 5:11 PM EST Gender Identity Not on file Sexual Orientation Not on file Last Filed Vital Signs Vital Sign Reading Time Taken Comments Blood Pressure 112/59 12/17/2023 2:48 PM EDT Pulse 59 12/17/2023 2:48 PM EDT Temperature - - Respiratory Rate - - Oxygen Saturation 97% 12/17/2023 2:48 PM EDT Inhaled Oxygen Concentration - - Weight 101 kg (222 lb 4.8 oz) 12/17/2023 2:48 PM EDT Height 185.4 cm (6' 1 ) 12/24/2018 12:00 PM EDT Body Mass Index 29.33 12/24/2018 12:00 PM EDT Plan of Treatment Upcoming Encounters Date Type Department Care Team (Late st Contact Info) Description 06/30/2024 1:30 PM EDT Office Visit [facility] [address] [place] [address] Alfonso Cole MD [address] [facility] [address] [place] [address] Health Maintenance Due Date Last Done Comments Colorectal Cancer Screening: Annual FOBT 1997 Colorectal Cancer Screening: Colonoscopy 1997 Colorectal Cancer Screening: Sigmoidoscopy 1997 Influenza Vaccine (#1) 2023 Pneumococcal Vaccine: 65+ Years Completed 07/25/2016, 07/20/2015 Hepatitis B Vaccine Aged Out No longe r eligible based on patient's age to complete this topic Procedures Procedure Name Priority Date/Time Associated Diagnosis Comments ALBUMIN, URINE, RANDOM Routine 01/08/2024 2:43 PM EST PROTEIN / CREATININE RATIO, URINE Routine 01/08/2024 2:43 PM EST Chronic kidney disease, stage 4 (severe) (HCC) Renal osteodystrophy Persistent proteinuria URINALYSIS WITH MICROSCOPIC Routine 01/08/2024 2:43 PM EST Chronic kidney disease, stage 4 (severe) (HCC) Renal osteodystrophy Persistent proteinuria CREATININE, BLOOD Routine 01/08/2024 1:5 3 PM EST BUN Routine 01/08/2024 1:53 PM EST ELECTROLYTE PANEL Routine 01/08/2024 1:5 3 PM EST PTH, INTACT (HC) Routine 01/08/2024 1:53 PM EST CBC AND DIFFERENTIAL Routine 01/08/2024 1:53 PM EST IRON PANEL (FE, TIBC, TSAT) Routine 01/08/2024 1:53 PM EST Chronic kidney disease, stage 4 (severe) (HCC) Renal osteodystrophy Persistent proteinuria FERRITIN Routine 01/08/2024 1:53 PM EST Chronic kidney disease, stage 4 (severe) (HCC) Renal osteodystrophy Persistent proteinuria CALCIUM Routine 01/08/2024 1:53 PM EST Chronic kidney disease, stage 4 (severe) (HCC) Renal osteodystrophy Persistent proteinuria ALBUMIN Routine 01/08/2024 1:53 PM EST Chronic kidney disease, stage 4 (severe) (HCC) Renal osteodystrophy Persistent proteinuria MAGNESIUM Routine 01/08/2024 1:53 PM EST Chronic kidney disease, stage 4 (severe) (HCC) Renal osteodystrophy Persistent proteinuria PHOSPHATE ( PHOSPHORUS) Routine 01/08/2024 1:53 PM EST Chronic kidney disease, stage 4 (severe) (HCC) Renal osteodystrophy Persistent proteinuria VITAMIN D 25 HYDROXY Routine 01/08/2024 1:53 PM EST Chronic kidney disease, stage 4 (severe) (HCC) Renal osteodystrophy Persistent proteinuria from Last 3 Months Results * (ABNORMAL) Protein, Total, Random Urine w/Creatinine (Protein/Creat Ratio) (01/08/2024 2:43 PM EST) Protein Urine Random 14(H) <12 mg/dL See order comments Protein/Creatin ine Ratio, Urine 0.12 <0.2 See order comments Comment: The spot urine protein:creatinine ratio may increase to 0.3 during normal . Urine (Urine, Clean Catch) 01/08/2024 2:43 PM EST 01/08/2024 2:43 PM EST us Alfonso Cole MD LAB URINE ORDERABLES Final Re sult [place] See order comments [place] [address] * (ABNORMAL) Albumin, urine, random (01/08/2024 2:43 PM EST) Creatinine, Urine 112.46 mg/dL Se e order comments Urine Microalbumin 39.0 mg/L See order comments Microalbumin/Crea tinine Ratio 34.6(H) <30 ug/mg cr See order comments Comment: ?Albumin/Creatinine Ratio Reference Ranges: ?Normal: < 30 ug/mg creatinine ?Microalbuminuria: ??30 - 300 ug/mg creatinine Clinical Albuminuria: ??> 300 ug/mg creatinine 01/08/2024 2:43 PM EST 01/08/2024 2:43 PM EST Alfonso Cole MD LAB URINE ORDERABLES Final Re sult Performing Organization Address [facility] de Phone Number See order comments [place] [address] * (ABNORMAL) Urinalysis with microscopic (01/08/2024 2:43 PM EST) Color Urine Yellow See orde r comments Appearance Urine Cloudy See order comments pH Urine 5.5 5.0 - 9.0 See order comments Glucose Urine Negative Negative mg/dL See order comments Blood, Urine Negative Negative See ord er comments Specific [place] Urine 1.010 1.005 - 1.025 See order comments Protein Urine Negative Neg-Trace mg/dL See order comments Ketones, Urine Negative Negative mg/dL See order comments Nitrite, Urine Positive(A) Negative See order comments Leukocyte Esterase Urine Large (3+)(A) Negative See order comments RBC, Urine 0-2 0 - 2 /HPF See orde r comments WBC >50(A) 0 - 5 /HPF See order comments Squamous Epithelial, Urine 3-5 0 - 2 /HPF See order comments Bacteria, Urine 4+ None Seen See order comments Hyaline Casts, Urine 3-5 0 - 2 /LPF See order comments Urine (Urine, Clean Catch) 01/08/2024 2:43 PM EST 01/08/2024 2:43 PM EST Alfonso Cole MD LAB URINE ORDERABLES Edited R esult - Final Performing Organization Address [facility] Co de Phone Number See order comments [place] [address] * (ABNORMAL) Creatinine (01/08/2024 1:53 PM EST) Creatinine Serum 2.52(H) 0.5 - 1.4 mg/dL See order comments eGFR 25 See order comments Comment: NOTE: ??For -[place] individuals, multiply the result ? by 1.210. Chronic Kidney Disease: ??Estimated GFR < 60 mL/min/1.73m2 Severe Kidney Disease: ??Estimated GFR < 15 mL/min/1.73m2 01/08/2024 1:53 PM EST 01/08/2024 1:53 PM EST Alfonso Cole MD LAB BLOOD ORDERABLES Final Re sult Performing Organization Address [facility] Phone Number [place] See order comments [place] [address] * PTH, Intact (01/08/2024 1:53 PM EST) Pathologist [facility] Parathyroid Hormone, Intact 74.2 8.7 - 77.1 pg/mL See order comments 01/08/2024 1:53 PM EST 01/08/2024 1:53 PM EST Result [facility] us Alfonso Cole MD LAB [id number] SOLICITED RESULTS Final Result Performing Organization Address [facility] Phone Number [place] See order comments [place] [address] * (ABNORMAL) Iron Panel (Fe, TIBC, TSAT) (01/08/2024 1:53 PM EST) Pathologist [facility] Iron 73 45 - 160 mcg/dL See order comments TIBC 193(L) 228 - 428 mcg/dL See order comments Iron Saturation (TSat) 38 15 - 50 % See order comments UIBC 120 ug/dL See order comments Blood (Blood, Venous) 01/08/2024 1:53 PM EST 01/08/2024 1:53 PM EST us Alfonso Cole MD LAB BLOOD ORDERABLES Final Re sult Performing Organization Address [facility] Phone Number [place] See order comments [place] [address] * (ABNORMAL) Vitamin D 25 Hydroxy (01/08/2024 1:53 PM EST) Pathologist [facility] Vitamin D, 25-Hydroxy 29.5(L) >30 ng/mL See order comments Comment: Health Based Reference Values* < 20 ??ng/mL ??Deficient 20-30 ng/mL ??Insufficient > 30 ??ng/mL ??Sufficient *Daniela MERINO. N Engl J Med. 2007;357:266-280 Care must be taken in interpreting Vitamin D results from different laboratories and methodologies. ??Published data demonstrated that results from patients undergoing hemodialysis may show a negative bias when tested with various automated 25-OH vitamin D assays when compared to LC-MS/MS. When testing samples from patients whose predominant form of Vitamin D is Vitamin D2, such as patients receiving Vitamin D2 supplementation, results that are subtherapeutic should be confirmed with another method such as LC-MS/MS. Blood (Blood, Venous) 01/08/2024 1:53 PM EST 01/08/2024 1:53 PM EST Alfonso Cole MD LAB BLOOD ORDERABLES Final Re sult [place] See order comments [place] [address] * (ABNORMAL) CBC and Differential (01/08/2024 1:53 PM EST) [facility] WBC 5.6 4.8 - 10.8 X10*3/uL See order comments RBC 2.85(L) 4.60 - 5.80 X10*6/uL See order comments Hgb 9.3(L) 14.0 - 18.0 g/dl See order comments Hematocrit 29.9(L) 42.0 - 52.0 % See order comments MCV 104.9(H) 80.0 - 98.0 fL See order comments MCH 32.6 27.0 - 33.0 pg See order comments MCHC 31.1 31.0 - 36.0 g/dl See order comments RDW 14.1 11.0 - 16.0 % See order comments Platelets 166 160 - 400 X10*3/uL See order comments MPV 9.3(L) 9.4 - 12.4 fL See order comments Neutrophils % Auto 51.9 45 - 73 % See order comments Immature Granulocytes 0.4 0.0 - 0.4 % See order comments Lymphocytes Relative 32.4 20 - 40 % See order comments Monocytes 9.4 2 - 11 % See order comments Eosinophils Relative 5.2(H) 0 - 4 % See order comments Basophils Relative 0.7 0 - 2 % See order comments nRBC Count 0.0 0.0 - 0.2 /100WBC See order comments Neutrophils Absolute 2.9 2.0 - 8.3 x10*3/uL See order comments Immature Grans (Absolute) 0.02 0.00 - 0.03 X10*3/uL See order comments Lymphocytes Absolute 1.8 1.2 - 4.9 X10*3/uL See order comments Monocytes Absolute 0.5 0.1 - 1.2 X10*3/uL See order comments Eosinophils Absolute 0.3 0.0 - 0.4 X10*3/uL See order comments Basophils Absolute 0.0 0.0 - 0.2 X10*3/uL See order comments NRBC Absolute 0.000 0.0 - 0.012 X10*3/uL See order comments 01/08/2024 1:53 PM EST 01/08/2024 1:53 PM EST Alfonso Cole MD LAB BLOOD ORDERABLES Final Re sult Performing Organization Address City/State/[facility] Co de Phone Number [place] See order comments [place] [address] * (ABNORMAL) BUN (01/08/2024 1:53 PM EST) BUN 38(H) 9 - 16 mg/dL See order comments 01/08/2024 1:53 PM EST 01/08/2024 1:53 PM EST Alfonso Cole MD LAB BLOOD ORDERABLES Final Re sult Performing Organization Address City/State/[facility] Co de Phone Number [place] See order comments [place] [address] * Phosphorus (01/08/2024 1:53 PM EST) Phosphorus, Serum 3.3 2.7 - 4.5 mg/dL See order comments Blood (Blood, Venous) 01/08/2024 1:53 PM EST 01/08/2024 1:53 PM EST us Alfonso Cole MD LAB BLOOD ORDERABLES Final Re sult Performing Organization Address [facility] Phone Number [place] See order comments [place] [address] * Magnesium (01/08/2024 1:53 PM EST) Magnesium 2.1 1.6 - 2.6 mg/dL See order comments Blood (Blood, Venous) 01/08/2024 1:53 PM EST 01/08/2024 1:53 PM EST us Alfonso Cole MD LAB BLOOD ORDERABLES Final Re sult Performing Organization Address [facility] Phone Number [place] See order comments [place] [address] * (ABNORMAL) Ferritin (01/08/2024 1:53 PM EST) Ferritin 260(H) 20 - 250 ng/mL See order comments Blood (Blood, Venous) 01/08/2024 1:53 PM EST 01/08/2024 1:53 PM EST us Alfonso Cole MD LAB BLOOD ORDERABLES Final Re sult Performing Organization Address [facility] Phone Number [place] See order comments [place] [address] * Calcium (01/08/2024 1:53 PM EST) Calcium 9.4 8.4 - 10.2 mg/dL See order comments Blood (Blood, Venous) 01/08/2024 1:53 PM EST 01/08/2024 1:53 PM EST us Alfonso Cole MD LAB BLOOD ORDERABLES Final Re sult Performing Organization Address [facility] Phone Number [place] See order comments [place] [address] * Albumin (01/08/2024 1:53 PM EST) Albumin 3.7 3.5 - 5.0 g/dL See order comments Blood (Blood, Venous) 01/08/2024 1:53 PM EST 01/08/2024 1:53 PM EST us Alfonso Cole MD LAB BLOOD ORDERABLES Final Re sult [place] See order comments [place] [address] * (ABNORMAL) Electrolyte panel (01/08/2024 1:53 PM EST) Sodium 144 135 - 145 mmol/L See order comments Potassium 4.3 3.3 - 5.1 mmol/L See order comments Chloride 110(H) 96 - 108 mmol/L See order comments Bicarbonate (CO2) 24 22 - 29 mmol/L See order comments Anion Gap 14 12 - 20 See order comments 01/08/2024 1:53 PM EST 01/08/2024 1:53 PM EST us Alfonso Cole MD LAB BLOOD ORDERABLES Final Re sult [place] See order comments [place] [address] from Last 3 Months Insurance [facility] MEDICARE [employer] MEDICARE Care Teams Volunteer Services Director Relationship Specialty Start Date End Date Panda Muniz MD PCP - General 03/15/20
--- OUTSIDE RECORDS SUMMARY | 2024-04-01 13:27 | XMS_ITS | Encounter Summary ---
Author Organization [facility] Address [address] [facility] [address] [place] [address] Phone Care Team Providers Care Math And Science Division Chair Name Role Phone Panda Muniz MD Primary Care Provider Unav ailable Reason for Visit * Reason Comments Med Refill Encounter Details Date Type Department Care Team (Late Contact Info) Description 02/27/2022 Refill [facility] [address] [facility] [address] [place] [address] Sami Moarles MD Social History Tobacco Use Types Packs/Day [...] [facility] [address] [place] [phone] Alfonso Cole MD [address] [facility] [address] [place] [phone] documented as of this encounter Visit Diagnoses Not on filedocumented in this encounter Care Teams Math And Science Division Chair Relationship Specialty Start Date End Date Panda Muniz MD PCP - General 03/15/20 documented as of this encounter
--- OUTSIDE RECORDS SUMMARY | 2024-04-01 13:27 | XMS_ITS | Encounter Summary ---
Author Organization [facility] Address [address] [facility] [address] [place] [address] Phone Care Team Providers Care Hot Mill Shearer Name Role Phone Panda Muniz MD Primary Care Provider Unav ailable Reason for Visit * Reason Comments Med Refill Encounter Details Date Type Department Care Team (Late Contact Info) Description 07/20/2022 Refill [facility] [address] [place] [phone] Sami Morales MD Social History Tobacco Use [...] Office Visit [facility] [address] [place] [phone] Alfonso Cole MD [address] [facility] [address] [place] [phone] documented as of this encounter Visit Diagnoses Not on filedocumented in this encounter Care Teams Hot Mill Shearer Relationship Specialty Start Date End Date Panda Muniz MD PCP - General 03/15/20 documented as of this encounter
--- OUTSIDE RECORDS SUMMARY | 2024-04-01 13:27 | XMS_ITS | Encounter Summary ---
Author Organization [employer] Address [address] [place] [address] [address] [place] [address] Care Team Providers Care Foam Caster Name Role Phone Panda Crooks MD Primary Care Provide r Reason for Visit * Reason Onset Date Comments Med Refill 04/01/2024 Encounter Details Date Type Department Care Team (Late st Contact Info) Description 04/01/2024 Refill [facility] MEDICINE [address] [place], [place] [phone] Panda Crooks MD [address] [place] [address] Social History Tobacco Use Types Packs/Day Years [...] AM EDT documented as of this encounter Miscellaneous Notes * Telephone Encounter - Yessi Madrid - 04/01/2024 9:46 AM EST TC from pt requesting medication refill. Medications needing refill : albuterol 108 (90 Base) MCG/ACT inhaler To be sent to: [facility] [place] - [address] [place] [address] documented in this encounter Plan of Treatment Not on file documented as of this encounter Visit Diagnoses Not on filedocumented in this encounter Additional Health Concerns Assessment Noted Time PHQ-9 Depression Total Score: 0 11/01/19 24 10:45 AM EDT documented as of this encounter Care Teams Foam Caster Relationship Specialty Start Date End Date Panda Crooks MD [address] [place] [address] PCP - General Internal Medicine 12/18/13 documented as of this encounter
--- OUTSIDE RECORDS SUMMARY | 2024-04-01 13:27 | XMS_ITS | Encounter Summary ---
Author Organization [employer] Address [address] [place] [address] [address] [place] [address] Care Team Providers Care Shuttle Threader Name Role Phone Panda Crooks MD Primary Care Provide r Reason for Visit * Reason Onset Date Comments Appointment Request 05/25/2022 Encounter Details Date Type Department Care Team ([facility] st Contact Info) Description 05/25/2022 Telephone [facility] MEDICINE [address] [place], [place] [phone] Panda Crooks MD [address] [place] [address] Appointment Request Social History Tobacco Use Types Packs/Day Years Used Date Smoking Tobacco: Every Day Cigars Alcohol Use Standard Drinks/Week Comments Not Currently [...] encounter Miscellaneous Notes * Telephone Encounter - Greyson Ovalle - 05/25/2022 9:07 AM EDT Tc from [facility] with [facility] requesting a physical appt for pt. Please [facility] at [phone] documented in this encounter Plan of Treatment Not on file documented as of this encounter Visit Diagnoses Not on filedocumented in this encounter Care Teams Shuttle Threader Relationship Specialty Start Date End Date Panda Crooks MD [address] [place] [address] PCP - General Internal Medicine 12/18/13 documented as of this encounter
--- OUTSIDE RECORDS SUMMARY | 2024-04-01 13:27 | XMS_ITS | Encounter Summary ---
Author Organization [employer] Address [address] [place] [address] 7 [place] [address] Care Team Providers Care Is Technician Name Role Phone Panda Crooks MD Primary Care Provide r Reason for Visit * Reason Onset Date Comments FYI 05/12/2022 Encounter Details Date Type Department Care Team ([facility] st Contact Info) Description 05/12/2022 Telephone [facility] MEDICINE [address] [place], [place] [phone] Panda Crooks MD [address] [place] [address] FYI Social History Tobacco Use Types Packs/Day Years [...] encounter Miscellaneous Notes * Telephone Encounter - Sherri Freitas RN - 05/15/2022 11:07 AM EDT T/C returned to [facility] residential case manager re below messages. Informed labs ordered and pt with televisitupcoming to discuss. [facility] states if we have any other concerns we can always call her again. T/C placed to pt at main number in chart. [facility] worker answered. States is seeing him in an hour, cantake message. Informed of colace and labs. She states they will be in [place] on Sunday so will bring pt for labs then. Televisit scheduled for 05/30 with PCP to discuss episodes of blacking out. Mailed appt reminder. * Telephone Encounter - Shannan Palacio RN - 05/15/2022 8:43 AM EDT Images from the original note were not included. (Combining call encounters) Panda Farmer MD P [facility] Team Nurses Caller: Unspecified (5 days ago, 11:43 AM) Colace sent. I placed an order for a B 12 and folate level, if low I can continue to prescribe Folic Acid. Please have patient get labs * Telephone Encounter - Brett Garcia - 05/12/2022 11:09 AM EST Tc from [facility] case coordinator would like to inform PCP that pt has episode of blacking out due to medication. Advised will leave message as a FYI denied triage, would like for a nurse to review pt meds. Please contact at [phone] documented in this encounter Plan of Treatment Not on file documented as of this encounter Visit Diagnoses Not on filedocumented in this encounter Care Teams Is Technician Relationship Specialty Start Date End Date Panda Crooks MD [address] [place] [id number] PCP - General Internal Medicine 12/18/13 documented as of this encounter
--- OUTSIDE RECORDS SUMMARY | 2024-04-01 13:27 | XMS_ITS | Encounter Summary ---
Author Organization [employer] Address [address] [place] [address] 7 [place] [address] Care Team Providers Care Stoker Installer Name Role Phone Panda Crooks MD Primary Care Provide r Reason for Visit * Reason Onset Date Comments Nurse Triage 04/01/2024 Encounter Details Date Type Department Care Team ([facility] st Contact Info) Description 04/01/2024 Telephone [facility] MEDICINE [address] [place], [place] [phone] Panda Crooks MD [address] [place] [address] Nurse Triage Social History Tobacco Use Types Packs/Day Years [...] encounter Miscellaneous Notes * Telephone Encounter - Lily Mai LPN - 04/01/2024 9:54 AM EST Triage call returned to patient home. Patient with Medical Advisor Roro. Roro reports that patient with audible wheezing no inhaler in home but has been reordered prior to call. Patient with onset ofillness last reports cough no fever. Has weakness and dizziness as confirmed at time of call. Drinking some water and soda per patient. Patient offered and declined appt for today at 1130am I am too weak Medical Advisor with attempts to encourage patient for appt today due to worsening illness. Patient declines. Medical Advisor Roro with [employer] determines that she will call for ambulance transport to [facility] ED for evaluation. contact PCP office after ER evaluation for follow up appt Multiple (2) protocols were used on this call. Disposition for Call: Go to ED Now Protocol Used: Cough (Adult) Protocol-Based Disposition: Go to Office or Video Visit Now Override (Final) Disposition: Go to ED Now Override Reason: Caller refused suggested disposition Video visit not offered Positive Triage Question: * Wheezing is present * All higher-acuity triage questions were negative Care Advice Discussed: * Reasons To Call Back - Difficulty breathing - You become worse Protocol Used: Weakness (Generalized) and Fatigue (Adult) Protocol-Based Disposition: Go to Office or Video Visit Now Positive Triage Question: * Moderate weakness (e.g., interferes with work, school, normal activities) and cause unknown (Exceptions: Weakness from acute minor illness or from poor fluid intake; weakness is chronic and not worse.) * All higher-acuity triage questions were negative Care Advice Discussed: * Reasons To Call Back - Unable to stand or walk - Passes out - Breathing difficulty occurs - You become worse * Telephone Encounter - Yessi Madrid - 04/01/2024 9:46 AM EST Symptoms: Wheezing, Body Aches, Breathing Trouble Outcome: Talk to a nurse or provider within 15 minutes Reason: Trouble breathing through the mouth The caller accepted this outcome. documented in this encounter Plan of Treatment Not on file documented as of this encounter Visit Diagnoses Not on filedocumented in this encounter Additional Health Concerns Assessment Noted Time PHQ-9 Depression Total Score: 0 11/01/19 24 10:45 AM EDT documented as of this encounter Care Teams Stoker Installer Relationship Specialty Start Date End Date Panda Crooks MD [address] [place] [id number] PCP - General Internal Medicine 12/18/13 documented as of this encounter
--- OUTSIDE RECORDS SUMMARY | 2024-04-01 13:27 | XMS_ITS | Encounter Summary ---
Author Organization [employer] [facility] Address [address] [place] [address] [place] [address] Care Team Providers Care Roll Changer Name Role Phone Panda Crooks MD Primary Care Provide r Encounter Details Date Type Department Care Team (Late st Contact Info) Description 01/25/2022 Abstract [facility] MEDICINE [address] [place] [address] Panda Crooks MD [address] [place], [place] [phone] Social History Tobacco Use Types Packs/Day Years Used Date Smoking Tobacco: Never Assessed Sex and Gender Information Value Date Recorded Sex Assigned at Male 01/02/2022 10:16 AM EDT Legal Sex Male 10:16 AM EDT Gender Identity Male 01/02/2022 10:16 AM EDT Sexual Orientation Straight 01/02/2022 10 :16 AM EDT documented as of this encounter Plan of Treatment Not on file documented as of this encounter Procedures Procedure Name Priority Date/Time Associated Diagnosis Comments COLONOSCOPY Routine 12/18/2014 documented in this encounter Results * Colonoscopy (12/18/2014) Colonoscopy Tubular Adenoma Comment:Dr. Montoya us Historical Provider HEALTH MAINTENANCE Final Result documented in this encounter Visit Diagnoses Not on filedocumented in this encounter Care Teams Roll Changer Relationship Specialty Start Date End Date Panda Crooks MD [address] [place], [place] [phone] PCP - General Internal Medicine 12/18/13 documented as of this encounter
--- NOTE | 2024-04-01 14:25 | PC.NURSE ---
t/w met with pt [facility] core loader Angelique, [phone]- advised pt to have PT consult.
[2024-04-01 16:59] LABS: Lactic Acid 1.2 mmol/L (0.5-2.0)
[2024-04-01] MEDS: cefTRIAXone sodium 1 GM VIAL IVPUSH (17:02)
--- NOTE | 2024-04-01 17:24 | PM.IMHP ---
History of Present Illness Date of Service: 04/01/24 Chief Complaint: Weakness, cough A 73 years old male with PMH of HTNn BPH, mood disorder, behavioral disorder, asthma among others who is presenting to the hospital for evaluation of increase weakness and coughing. The patient reports feeling weak and coughing for almost a month now. He is very vague and frail looking. reports he walks around at his place without a cane or walker. Today his returned case inspector called EMS as she was concerned with his house condition. He was disheveled and weak upon arrival. Tested positive for Flu A. evaluated by PT who recommended STR but the patient refused to look into that option at this point. Urine concerning for possible infection. Will be admitted for management of UTI, Flu and Frailty and elderly care given concerns about his home condition and safety. Review of Systems Review of Systems: reports weakness No chest pain, palpitation mild shortness of breath but has coughing No abdominal pain, nausea or vomiting No urinary symptoms No any rash or wounds [facility] Medical History Essential hypertension Constipation Vasovagal syncope Chronic acquired lymphedema Family History Unknown No problems noted. 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 Meds Allergies Allergy/AdvReac Type Severity Reaction Status Date / Time No Known Allergies Allergy Verified 04/01/24 11:06 Home Medications ?Medication ?Instructions ?Recorded ?Confirmed ?Last Taken ?Type acetaminophen 500 mg tablet 500 mg PO Q6H PRN Pain 10/04/22 10/08/23 Unknown History albuterol sulfate 90 mcg/actuation 90 mcg inhalation DAILY 10/04/22 10/08/23 Unknown History aerosol inhaler (Ventolin HFA) aspirin 81 mg tablet,delayed 81 mg PO DAILY 10/04/22 10/08/23 Unknown History release benztropine 0.5 mg tablet 0.5 mg PO DAILY 10/04/22 10/08/23 Unknown History docusate sodium 100 mg capsule 100 mg PO BID 10/04/22 10/08/23 Unknown History fimslai-leiwcnn-fxzrm salicy-titan 1 ea topical DAILY 10/04/22 10/08/23 Unknown History diox-zinc oxide SPF 30 lotion (Eucerin Daily Protection) haloperidol 10 mg tablet 10 mg PO BEDTIME 10/04/22 10/08/23 Unknown History haloperidol 5 mg tablet 5 mg PO BEDTIME 10/04/22 10/08/23 Unknown History hydralazine 50 mg tablet 50 mg PO BID 10/04/22 10/08/23 Unknown History lisinopril 40 mg tablet 40 mg PO DAILY 10/04/22 10/08/23 Unknown History metoprolol succinate 50 mg 50 mg PO DAILY 10/04/22 10/08/23 Unknown History tablet,extended release 24 hr montelukast 10 mg tablet 10 mg PO DAILY 10/04/22 10/08/23 Unknown History potassium chloride 10 mEq 10 meq PO DAILY 10/04/22 10/08/23 Unknown History tablet,extended release simvastatin 20 mg tablet 20 mg PO BEDTIME 10/04/22 10/08/23 Unknown History tamsulosin 0.4 mg capsule 0.4 mg PO DAILY 10/04/22 10/08/23 Unknown History ergocalciferol (vitamin D2) 25,000 50,000 unit PO USEASDIRECTD 11/13/22 10/08/23 Unknown History unit capsule furosemide 40 mg tablet (Lasix) 40 mg PO QAM 11/13/22 10/08/23 Unknown History oxybutynin chloride 10 mg 10 mg PO DAILY 01/01/23 10/08/23 Unknown History tablet,extended release 24 hr Physical Exam Vital Signs and Narrative: Vital Signs: Last Vital Signs Temp 98 F 04/01/24 11:05 Pulse 75 04/01/24 13:38 Resp 17 04/01/24 13:38 BP 148/97 H 04/01/24 11:05 Pulse Ox 96 04/01/24 13:38 O2 Del Method Room Air 04/01/24 13:38 Oxygen Flow Rate 2 04/01/24 11:05 BMI result Body Mass Index 31.8 Const: Other: Constitutional : Awake, interactive, frail, not in distress Neck : Normal inspection, Supple Cardiovascular : RRR, no JVP, no lower extremity edema Respiratory : decreased bilateral air entry, bilateral wheezes Gastrointestinal: soft, lax, Normal bowel sounds, Non tender Skin : Warm, Dry Neurological : Alert & oriented to self and place, moving extremities Results Labs 04/01/24 12:15 04/01/24 12:15 Labs: Laboratory Results - last 24 hr 04/01/24 04/01/24 04/01/24 12:04 12:15 13:11 MCV 106.0 H MCH 32.5 MCHC 30.6 L RDW 13.9 Plt Count 144 L MPV 8.7 L Immature Gran % (Auto) 1.8 H Neut % (Auto) 76.3 H Lymph % (Auto) 14.3 L Campbell % (Auto) 7.4 Eos % (Auto) 0.0 Baso % (Auto) 0.2 Lymph # (Auto) 0.9 L Campbell # (Auto) 0.4 Eos # (Auto) 0.0 Baso # (Auto) 0.0 Abs Immat Gran (auto) 0.11 H Absolute Neuts (auto) 4.5 Absolute Nucleated RBC 0.000 Nucleated RBC % (auto) 0.0 Anion Gap 7 L Estim Creat Clear Calc 51.7 Estimated GFR 45 Random Glucose 128 H Lactic Acid Calcium 8.8 D Total Bilirubin 0.3 Direct Bilirubin 0.2 AST 50 H ALT 43 H Alkaline Phosphatase 83 Troponin I High Sens 39.3 H B-Natriuretic Peptide 227 H Total Protein 7.2 Albumin 3.7 Urine Color Yellow Urine Appearance Cloudy Urine pH 5.5 Ur Specific Ferguson 1.015 Urine Protein 100 (2+) H Urine Glucose (UA) Negative Urine Ketones Negative Urine Blood Trace H Urine Nitrite Positive H Ur Leukocyte Esterase Moderate (2+) H Urine RBC 0-2 Urine WBC 21-50 H Ur Squamous Epith Cells 3-5 Urine Bacteria 4+ Hyaline Casts 3-5 Influenza Type A (PCR) POSITIVE A Influenza Type B (PCR) NEGATIVE RSV RNA Qual (PCR) NEGATIVE SARS-CoV-2 RNA (RT-PCR) NEGATIVE 04/01/24 16:40 MCV MCH MCHC RDW Plt Count MPV Immature Gran % (Auto) Neut % (Auto) Lymph % (Auto) Campbell % (Auto) Eos % (Auto) Baso % (Auto) Lymph # (Auto) Campbell # (Auto) Eos # (Auto) Baso # (Auto) Abs Immat Gran (auto) Absolute Neuts (auto) Absolute Nucleated RBC Nucleated RBC % (auto) Anion Gap Estim Creat Clear Calc Estimated GFR Random Glucose Lactic Acid 1.2 Calcium Total Bilirubin Direct Bilirubin AST ALT Alkaline Phosphatase Troponin I High Sens B-Natriuretic Peptide Total Protein Albumin Urine Color Urine Appearance Urine pH Ur Specific Ferguson Urine Protein Urine Glucose (UA) Urine Ketones Urine Blood Urine Nitrite Ur Leukocyte Esterase Urine RBC Urine WBC Ur Squamous Epith Cells Urine Bacteria Hyaline Casts Influenza Type A (PCR) Influenza Type B (PCR) RSV RNA Qual (PCR) SARS-CoV-2 RNA (RT-PCR) Imaging Radiologist's Impressions: Impressions Chest X-Ray 04/01/24 11:08 IMPRESSION: Consider mild interstitial edema in the correct clinical settings superimposed acute small airway inflammatory process cannot be excluded. Electronically signed by: Mike Linton MD 04/01/2024 11:32 AM [facility] Assessment and Plan (1) Influenza: Status: Acute (2) Acute UTI: Status: Acute (3) Schizophrenia: Status: Acute (4) Physical deconditioning: Status: Acute Plan A 73 years old male with PMH of HTNn BPH, mood disorder, Schizophrenia, asthma among others who is presenting to the hospital for evaluation of increase weakness and coughing. Infulenza A Tamiflu renally adjusted dose supportive therapy Nebulizers q6 and PRN UTI Pending cultures on Ceftriaxone Physical deconditioning PT eval and follow up, likely needs placement BPH Simvastatin HTN Continue home medications once reconciled schizophrenia Disheveled, lack on insight on Haldol at home get psych eval to address underlying issues and possible treatment plan CKD3 follow BMP DVT PPx Heparin pending med rec The patient will need 2 overnight hospital stay for treatment of Flu A, UTI and physical deconditioning to clear medical status pending psychiatry eval and returned case inspector planning for disposition Quality Stroke Does the patient have a stroke diagnosis?: No VTE Prior VTE?: No VTE Risk Level:: Medical - moderate - high VTE Device Contraindication: Treatment Not Indicated VTE Drug Contraindication: N/A - Med Ordered
--- NOTE | 2024-04-01 17:35 | PC.NURSE ---
pt found to have UTI while in dept- per He, draw 1 set of cultures prior to abs- at time of admin, t/w along with another RN attempted to admin ABx through US guided 20g in left upper rm- line appeared occluded- US guided line removed, well tolerated by pt. HE to bedside, placed right EJ- additional labs obtained- ABX given.
[2024-04-01] MEDS: Oseltamivir Phosphate 75 MG CAPSULE PO (17:57)
[2024-04-01 19:03] LABS: Troponin-I High Sensitivity 53.7 ng/L (<3.5-35.0)
[2024-04-01] MEDS: Albuterol/Iprat 2.5/0.5MG 3 ML AMPUL.NEB INHALE (20:02)
--- NOTE | 2024-04-01 20:42 | PC.NURSE ---
called [facility] director case Angelique- advised pt to b admitted medically for UTI as well as Influenza, advised PT recomends STR due to pt weakness during eval. all qurestions answered- director case to follow up with pt tomorrow.
[2024-04-01] MEDS: Heparin Sodium,Porcine 5,000 UNIT/ML VIAL 5000 UNIT SUBCUT (21:46)
--- NOTE | 2024-04-01 21:57 | PC.NURSE ---
pt medicated per MAR- pt resting on exam room stretcher, watching TV offers no complaints at this time. call gilbert within reach
--- NOTE | 2024-04-01 22:31 | PHA.MEDREC ---
Pharmacy Consult ? Medication Reconciliation Pharmacy has completed the medication reconciliation. Tried to talk to patient but he said he doesn't know his meds and to call Roro, his medical case manager. I spoke to Roro via phone [phone] and was able to confirm his medications with her. She confirmed he is taking cogentin 0.5 mg daily (even though there's no pharmacy claims for it), haloperidol both 5 mg and 10 mg at bedtime, vitamin D is once a month on the last sunday of the month (dose is due tomorrow 04/02/24). Last dose of medications was yesterday 03/31/24.
--- NOTE | 2024-04-01 23:21 | PC.NURSE ---
Took report from off-going RN at 2300 hrs.
[2024-04-02] VITALS (9 sets, daily range): BP systolic 138–173; BP diastolic 77–86; PULSE 77–95; RESP 18–24; TEMP 36.3–37.1; O2SAT 94–97; BMI 31.2
[2024-04-02] MEDS: 0.9 % Sodium Chloride Flush 3 ML SYRINGE IVFLUSH ×4 (00:15→21:34)
[2024-04-02] MEDS: Albuterol Sulfate (0.083%) 2.5 MG/3 ML VIAL.NEB INHALE ×2 (01:40→16:14)
--- NOTE | 2024-04-02 02:18 | PC.NURSE ---
Patient arrived to unit, with increased SOB, Satting at 96% RA, abdominal respirations with labored breathing, inspiratory & expiratory wheezing heard on auscultation. Denies pain at this time. Respiratory called for PRN albuterol treatment, per MAY.
[2024-04-02 07:23] LABS: Anion Gap 13 (12-20); Blood Urea Nitrogen 24 mg/dL (9-16); Carbon Dioxide 20 mmol/L (22-29); Chloride 117 mmol/L (96-108); Creatinine Clr Calc Pharmacy 47.5; Estimated Glomerular Filt Rate 41; Glucose Random 133 mg/dL (60-115); Potassium 4.7 mmol/L (3.3-5.1); Sodium 145 mmol/L (135-145)
[2024-04-02] MEDS: Albuterol/Iprat 2.5/0.5MG 3 ML AMPUL.NEB INHALE ×3 (07:55→19:47)
[2024-04-02] MEDS: methylPREDNISolone Sod Succ 40 MG/ML VIAL IVPUSH ×2 (08:47→21:34)
[2024-04-02] MEDS: Heparin Sodium,Porcine 5,000 UNIT/ML VIAL 5000 UNIT SUBCUT ×2 (08:49→21:36)
[2024-04-02] MEDS: oxyBUTYnin chloride ER 5 MG TAB.ER.24 10 MG PO (08:50)
[2024-04-02] MEDS: Famotidine 20 MG TABLET 40 MG PO (08:50)
[2024-04-02] MEDS: Montelukast Sodium 10 MG TABLET PO (08:50)
[2024-04-02] MEDS: Furosemide 40 MG TABLET PO (08:50)
[2024-04-02] MEDS: Cyanocobalamin (Vitamin B-12) 1,000 MCG TABLET 1000 MCG PO (08:51)
[2024-04-02] MEDS: Benztropine Mesylate 0.5 MG TABLET PO (08:51)
[2024-04-02] MEDS: Tamsulosin HCL 0.4 MG CAPSULE PO (08:51)
[2024-04-02] MEDS: Aspirin Enteric Coated 81 MG TABLET.DR PO (08:51)
[2024-04-02] MEDS: OLANZapine 5 MG TABLET PO (08:51)
[2024-04-02] MEDS: Metoprolol Succinate ER 50 MG TAB.ER.24H PO (08:51)
[2024-04-02] MEDS: lisinopriL 40 MG TABLET PO (08:51)
[2024-04-02] MEDS: hydrALAZINE HCl 50 MG TABLET PO ×2 (08:51→21:34)
--- NOTE | 2024-04-02 11:10 | P.PNIM_ITS ---
Subjective Subjective Date of Service: 04/02/24 Interval History: seen and examined this AM thinks he's as [facility], doesnt know month, states he lives alone Physical Exam 2 Vital Signs: Vital Signs: Last Vital Signs Temp 97.4 F 04/02/24 07:17 Pulse 92 04/02/24 07:56 Resp 18 04/02/24 07:56 BP 173/86 H 04/02/24 07:17 Pulse Ox 95 04/02/24 07:17 O2 Del Method Room Air 04/02/24 07:17 Oxygen Flow Rate 2 04/01/24 11:05 BMI result Body Mass Index 31.2 Const: Other: General - no acute distress, appears comfortable Cardiovascular - regular rate and rhythm, S1-S2 Lungs - diffuse rhonchi/wheezing Abdomen - soft, nontender, no rebound or guarding Extremities - pedal edema Neuro - awake and alert, no focal deficits; disoriented Objective Data Active Medications Acetaminophen (Acetaminophen 325 Mg Tablet) 650 mg PO Q6H PRN PRN Reason: Pain, Mild 1-3,fever,headache Albuterol Sulfate (Albuterol Sulfate (0.083%) 2.5 Mg/3 Ml Vial.Neb) 2.5 mg INHALE Q4H PRN PRN Reason: Shortness of Breath/Wheezing Last Admin: 04/02/24 01:40 Dose: 2.5 mg Documented By: RAMAN Albuterol/Ipratropium (Albuterol/Iprat 2.5/0.5mg 3 Ml Ampul.Neb) 3 ml INHALE RQ6H WHILE AWAKE [facility] Last Admin: 04/02/24 07:55 Dose: 3 ml Documented By: MATTHEW Aspirin (Aspirin Enteric Coated 81 Mg Tablet.Dr) 81 mg PO DAILY [facility] Last Admin: 04/02/24 08:51 Dose: 81 mg Documented By: KAY Atorvastatin Calcium (Atorvastatin Calcium 10 Mg Tablet) 10 mg PO BEDTIME [facility] Benzonatate (Benzonatate 100 Mg Capsule) 100 mg PO TID PRN PRN Reason: Cough Benztropine Mesylate (Benztropine Mesylate 0.5 Mg Tablet) 0.5 mg PO DAILY [facility] Last Admin: 04/02/24 08:51 Dose: 0.5 mg Documented By: KAY Calcium Carbonate (Calcium Carbonate 750 Mg Tab.Chew) 750 mg PO Q4H PRN PRN Reason: Heartburn Ceftriaxone Sodium (Ceftriaxone Sodium 1 Gm Vial) 1 gm IVPUSH Q24H [facility] Cyanocobalamin (Cyanocobalamin (Vitamin B-12) 1,000 Mcg Tablet) 1,000 mcg PO DAILY [facility] Last Admin: 04/02/24 08:51 Dose: 1,000 mcg Documented By: KAY Famotidine (Famotidine 20 Mg Tablet) 40 mg PO DAILY [facility] Last Admin: 04/02/24 08:50 Dose: 40 mg Documented By: KAY Furosemide (Furosemide 40 Mg Tablet) 40 mg PO DAILY [facility]; Protocol Last Admin: 04/02/24 08:50 Dose: 40 mg Documented By: KAY Haloperidol (Haloperidol 5 Mg Tablet) 5 mg PO BEDTIME [facility] Haloperidol (Haloperidol 5 Mg Tablet) 10 mg PO BEDTIME [facility] Heparin Sodium (Porcine) (Heparin Sodium,Porcine 5,000 Unit/Ml Vial) 5,000 unit SUBCUT Q12H [facility] Last Admin: 04/02/24 08:49 Dose: 5,000 unit Documented By: KAY Hydralazine HCl (Hydralazine Hcl 50 Mg Tablet) 50 mg PO BID [facility]; Protocol Last Admin: 04/02/24 08:51 Dose: 50 mg Documented By: KAY Lisinopril (Lisinopril 40 Mg Tablet) 40 mg PO DAILY [facility]; Protocol Last Admin: 04/02/24 08:51 Dose: 40 mg Documented By: KAY Magnesium Hydroxide (Milk Of Magnesia 30 Ml Oral.Susp) 30 ml PO DAILY PRN PRN Reason: Constipation Melatonin (Melatonin 3 Mg Tablet) 6 mg PO BEDTIME PRN PRN Reason: Insomnia Methylprednisolone Sodium Succinate (Methylprednisolone Sod Succ 40 Mg/Ml Vial) 40 mg IVPUSH Q12H [facility] Last Admin: 04/02/24 08:47 Dose: 40 mg Documented By: KAY Metoprolol Succinate (Metoprolol Succinate Er 50 Mg Tab.Er.24h) 50 mg PO DAILY [facility]; Protocol Last Admin: 04/02/24 08:51 Dose: 50 mg Documented By: KAY Montelukast Sodium (Montelukast Sodium 10 Mg Tablet) 10 mg PO DAILY [facility] Last Admin: 04/02/24 08:50 Dose: 10 mg Documented By: KAY Olanzapine (Olanzapine 5 Mg Tablet) 5 mg PO DAILY [facility] Last Admin: 04/02/24 08:51 Dose: 5 mg Documented By: KAY Ondansetron HCl (Ondansetron Hcl 4 Mg/2 Ml Vial) 4 mg IVPUSH Q8H PRN PRN Reason: Nausea and Vomiting Oseltamivir Phosphate (Oseltamivir Phosphate 75 Mg Capsule) 75 mg PO Q24H [facility] Stop: 04/05/24 13:01 Last Admin: 04/01/24 17:57 Dose: 75 mg Documented By: ALFRED Oxybutynin Chloride (Oxybutynin Chloride Er 5 Mg Tab.Er.24) 10 mg PO DAILY [facility] Last Admin: 04/02/24 08:50 Dose: 10 mg Documented By: KAY Sodium Chloride (0.9 % Sodium Chloride Flush 3 Ml Syringe) 3 ml IVFLUSH QSHIFT [facility] Last Admin: 04/02/24 08:48 Dose: 3 ml Documented By: KAY Tamsulosin HCl (Tamsulosin Hcl 0.4 Mg Capsule) 0.4 mg PO DAILY [facility] Last Admin: 04/02/24 08:51 Dose: 0.4 mg Documented By: KAY Labs 04/01/24 12:15 04/02/24 06:29 Labs: Laboratory Results - last 24 hr 04/01/24 04/01/24 04/01/24 12:04 12:15 13:11 MCV 106.0 H MCH 32.5 MCHC 30.6 L RDW 13.9 Plt Count 144 L MPV 8.7 L Immature Gran % (Auto) 1.8 H Neut % (Auto) 76.3 H Lymph % (Auto) 14.3 L Foard % (Auto) 7.4 Eos % (Auto) 0.0 Baso % (Auto) 0.2 Lymph # (Auto) 0.9 L Foard # (Auto) 0.4 Eos # (Auto) 0.0 Baso # (Auto) 0.0 Abs Immat Gran (auto) 0.11 H Absolute Neuts (auto) 4.5 Absolute Nucleated RBC 0.000 Nucleated RBC % (auto) 0.0 Anion Gap 7 L Estim Creat Clear Calc 51.7 Estimated GFR 45 Random Glucose 128 H Lactic Acid Calcium 8.8 D Total Bilirubin 0.3 Direct Bilirubin 0.2 AST 50 H ALT 43 H Alkaline Phosphatase 83 Troponin I High Sens 39.3 H B-Natriuretic Peptide 227 H Total Protein 7.2 Albumin 3.7 Urine Color Yellow Urine Appearance Cloudy Urine pH 5.5 Ur Specific Campbell 1.015 Urine Protein 100 (2+) H Urine Glucose (UA) Negative Urine Ketones Negative Urine Blood Trace H Urine Nitrite Positive H Ur Leukocyte Esterase Moderate (2+) H Urine RBC 0-2 Urine WBC 21-50 H Ur Squamous Epith Cells 3-5 Urine Bacteria 4+ Hyaline Casts 3-5 Influenza Type A (PCR) POSITIVE A Influenza Type B (PCR) NEGATIVE RSV RNA Qual (PCR) NEGATIVE SARS-CoV-2 RNA (RT-PCR) NEGATIVE 04/01/24 04/01/24 04/02/24 16:40 18:37 06:29 MCV MCH MCHC RDW Plt Count MPV Immature Gran % (Auto) Neut % (Auto) Lymph % (Auto) Foard % (Auto) Eos % (Auto) Baso % (Auto) Lymph # (Auto) Foard # (Auto) Eos # (Auto) Baso # (Auto) Abs Immat Gran (auto) Absolute Neuts (auto) Absolute Nucleated RBC Nucleated RBC % (auto) Anion Gap 13 Estim Creat Clear Calc 47.5 Estimated GFR 41 Random Glucose 133 H Lactic Acid 1.2 Calcium 9.0 Total Bilirubin Direct Bilirubin AST ALT Alkaline Phosphatase Troponin I High Sens 53.7 H B-Natriuretic Peptide Total Protein Albumin Urine Color Urine Appearance Urine pH Ur Specific Campbell Urine Protein Urine Glucose (UA) Urine Ketones Urine Blood Urine Nitrite Ur Leukocyte Esterase Urine RBC Urine WBC Ur Squamous Epith Cells Urine Bacteria Hyaline Casts Influenza Type A (PCR) Influenza Type B (PCR) RSV RNA Qual (PCR) SARS-CoV-2 RNA (RT-PCR) Microbiology Microbiology Results: Microbiology 04/01/24 Unknown Urine Culture - Preliminary Urine clean catch - Clean Catch Midstream Culture in progress. Assessment and Plan (1) Influenza: Status: Acute Plan 73 yo M with PMH of HTN, BPH, mood, ? diastolic CHF, asthma who presented to [facility] ED with weakness and coughing 1. Acute asthma exacerbation due to underlying influenza A infection continue tamiflu continue steroids continue updrafts 2. Possible acute on chronic HFpEF (echo in 2022 showing diastolic dysfunction) some pedal edema, BNP elevated and CXR with possible interstitial edema IV lasix x 1 and monitor response 3. Possible UTI empiric rocephin f/u cultures 4. HTN continue baseline meds 5. Mood continue baseline meds psych consult 6. BPH flomax Full Code DVT pptx, heparin reason for on going hospitalization: treatment of asthma/possible CHF Quality Stroke Does the patient have a stroke diagnosis?: No VTE Prior VTE?: No VTE Risk Level:: Medical - moderate - high VTE Device Contraindication: Treatment Not Indicated VTE Drug Contraindication: N/A - Med Ordered
--- NOTE | 2024-04-02 13:47 | MHC.CM.PN ---
Addendum entered by Messi Manuel 04/02/24 14:02: CM SPOKE WITH AILYN WHO IS HIS CARDROOM HAND AT [facility], SHE IS UNABLE TO BE HIS HCP BUT ABLE TO SHARE INFORMATION. PT HAS ASSIST WITH HOUSEKEEPING 1X/WK, FREQUENTLY DECLINES ASSIST. AILYN ASSISTS FREQ. WITH SHOPPING, APPOINTMENTS ETC. PT HAS [employer]. [facility] [employer] PAN[employer] [phone] Original Note: IMM DELIVERED. PT LIVES ALONE AND WAS INDEPENDENT PRIOR TO ADMISSION. P.T. IS RECOMMENDING STR BUT PT IS DECLINING. PT IS OPEN TO HOME SERVICES AND HAS NO PREFERENCE TO AGENCY. REFERRAL SENT TO [facility].PT WILL COMPLETE A HCP NAMING HIS FRIEND AILYN WHO ASSISTS PT AND DOES HIS GROCERY SHOPPING. PT GIVES THIS CM PERMISSION TO SPEAK WITH AILYN. PCP DR. BREWER AT [facility]. DP: HOME WITH SERVICES, CM AWAITING PSYCH EVAL. PT WILL NEED BLS TRANSPORT. CM WILL CONTINUE TO FOLLOW FOR ANY CHANGE TO DC NEEDS/PLAN.
[2024-04-02] MEDS: Oseltamivir Phosphate 75 MG CAPSULE PO (14:08)
[2024-04-02] MEDS: cefTRIAXone sodium 1 GM VIAL IVPUSH (17:02)
[2024-04-02] MEDS: HaloperidoL 5 MG TABLET PO (21:32)
[2024-04-02] MEDS: HaloperidoL 5 MG TABLET 10 MG PO (21:33)
[2024-04-02] MEDS: Atorvastatin Calcium 10 MG TABLET PO (21:37)
[2024-04-03 06:48] LABS: Anion Gap 12 (12-20); Blood Urea Nitrogen 35 mg/dL (9-16); Calcium 8.9 mg/dL (8.4-10.2); Carbon Dioxide 24 mmol/L (22-29); Chloride 113 mmol/L (96-108); Creatinine Clr Calc Pharmacy 44.2; Estimated Glomerular Filt Rate 38; Glucose Random 150 mg/dL (60-115); Potassium 4.3 mmol/L (3.3-5.1); Sodium 145 mmol/L (135-145)
[2024-04-03 08:00] VITALS: BP 165/81; PULSE 60; RESP 16; TEMP 36.4; O2SAT 97
[2024-04-03] MEDS: Albuterol/Iprat 2.5/0.5MG 3 ML AMPUL.NEB INHALE ×3 (08:23→18:59)
[2024-04-03 08:26] VITALS: PULSE 60; RESP 18; O2SAT 97
[2024-04-03] MEDS: methylPREDNISolone Sod Succ 40 MG/ML VIAL IVPUSH ×2 (08:54→20:30)
[2024-04-03] MEDS: 0.9 % Sodium Chloride Flush 3 ML SYRINGE IVFLUSH ×3 (08:55→20:30)
[2024-04-03] MEDS: Heparin Sodium,Porcine 5,000 UNIT/ML VIAL 5000 UNIT SUBCUT ×2 (08:55→20:32)
[2024-04-03] MEDS: OLANZapine 5 MG TABLET PO (08:56)
[2024-04-03] MEDS: Furosemide 40 MG TABLET PO (08:56)
[2024-04-03] MEDS: oxyBUTYnin chloride ER 5 MG TAB.ER.24 10 MG PO (08:56)
[2024-04-03] MEDS: Aspirin Enteric Coated 81 MG TABLET.DR PO (08:56)
[2024-04-03] MEDS: Famotidine 20 MG TABLET 40 MG PO (08:56)
[2024-04-03] MEDS: Montelukast Sodium 10 MG TABLET PO (08:57)
[2024-04-03] MEDS: Benztropine Mesylate 0.5 MG TABLET PO (08:57)
[2024-04-03] MEDS: Metoprolol Succinate ER 50 MG TAB.ER.24H PO (08:57)
[2024-04-03] MEDS: Tamsulosin HCL 0.4 MG CAPSULE PO (08:57)
[2024-04-03] MEDS: Cyanocobalamin (Vitamin B-12) 1,000 MCG TABLET 1000 MCG PO (08:57)
[2024-04-03] MEDS: lisinopriL 40 MG TABLET PO (08:57)
[2024-04-03] MEDS: hydrALAZINE HCl 50 MG TABLET PO ×2 (08:57→20:32)
[2024-04-03] MEDS: Oseltamivir Phosphate 75 MG CAPSULE PO (13:37)
[2024-04-03 15:02] VITALS: PULSE 80; RESP 18; O2SAT 95
[2024-04-03 15:03] VITALS: BP 142/98; PULSE 80; RESP 16; TEMP 36.2; O2SAT 95
[2024-04-03] MEDS: cefTRIAXone sodium 1 GM VIAL IVPUSH (16:38)
--- NOTE | 2024-04-03 16:45 | HO.PM.IMPN ---
Subjective Subjective Date of Service: 04/03/24 Interval History: seen and examined improving daily less sob and cough Review of Systems Negative except HPI/interval history. Physical Exam Vital Signs: Vital Signs: Last Vital Signs Temp 97.1 F 04/03/24 15:03 Pulse 80 04/03/24 15:03 Resp 16 04/03/24 15:03 BP 142/98 H 04/03/24 15:03 Pulse Ox 95 04/03/24 15:03 O2 Del Method Room Air 04/03/24 15:03 Oxygen Flow Rate 2 04/01/24 11:05 BMI result Body Mass Index 31.2 Const: Other: General - no acute distress, appears comfortable Cardiovascular - regular rate and rhythm, S1-S2 Lungs - scattered wheezing Abdomen - soft, nontender, no rebound or guarding Extremities - no edema bilaterally Neuro - awake and alert, no focal deficits Objective Data Active Medications Acetaminophen (Acetaminophen 325 Mg Tablet) 650 mg PO Q6H PRN PRN Reason: Pain, Mild 1-3,fever,headache Albuterol Sulfate (Albuterol Sulfate (0.083%) 2.5 Mg/3 Ml Vial.Neb) 2.5 mg INHALE Q4H PRN PRN Reason: Shortness of Breath/Wheezing Last Admin: 04/02/24 16:14 Dose: 2.5 mg Documented By: TALIA Albuterol/Ipratropium (Albuterol/Iprat 2.5/0.5mg 3 Ml Ampul.Neb) 3 ml INHALE RQ6H WHILE AWAKE [facility] Last Admin: 04/03/24 15:00 Dose: 3 ml Documented By: USHA Aspirin (Aspirin Enteric Coated 81 Mg Tablet.) 81 mg PO DAILY [facility] Last Admin: 04/03/24 08:56 Dose: 81 mg Documented By: KAY Atorvastatin Calcium (Atorvastatin Calcium 10 Mg Tablet) 10 mg PO BEDTIME [facility] Last Admin: 04/02/24 21:37 Dose: 10 mg Documented By: JACKIE Benzonatate (Benzonatate 100 Mg Capsule) 100 mg PO TID PRN PRN Reason: Cough Benztropine Mesylate (Benztropine Mesylate 0.5 Mg Tablet) 0.5 mg PO DAILY [facility] Last Admin: 04/03/24 08:57 Dose: 0.5 mg Documented By: KAY Calcium Carbonate (Calcium Carbonate 750 Mg Tab.Chew) 750 mg PO Q4H PRN PRN Reason: Heartburn Ceftriaxone Sodium (Ceftriaxone Sodium 1 Gm Vial) 1 gm IVPUSH Q24H [facility] Last Admin: 04/03/24 16:38 Dose: 1 gm Documented By: KAY Cyanocobalamin (Cyanocobalamin (Vitamin B-12) 1,000 Mcg Tablet) 1,000 mcg PO DAILY [facility] Last Admin: 04/03/24 08:57 Dose: 1,000 mcg Documented By: KAY Famotidine (Famotidine 20 Mg Tablet) 40 mg PO DAILY [facility] Last Admin: 04/03/24 08:56 Dose: 40 mg Documented By: KAY Furosemide (Furosemide 40 Mg Tablet) 40 mg PO DAILY [facility]; Protocol Last Admin: 04/03/24 08:56 Dose: 40 mg Documented By: KAY Haloperidol (Haloperidol 5 Mg Tablet) 5 mg PO BEDTIME [facility] Last Admin: 04/02/24 21:32 Dose: 5 mg Documented By: JACKIE Haloperidol (Haloperidol 5 Mg Tablet) 10 mg PO BEDTIME [facility] Last Admin: 04/02/24 21:33 Dose: 10 mg Documented By: JACKIE Heparin Sodium (Porcine) (Heparin Sodium,Porcine 5,000 Unit/Ml Vial) 5,000 unit SUBCUT Q12H [facility] Last Admin: 04/03/24 08:55 Dose: 5,000 unit Documented By: KAY Hydralazine HCl (Hydralazine Hcl 50 Mg Tablet) 50 mg PO BID [facility]; Protocol Last Admin: 04/03/24 08:57 Dose: 50 mg Documented By: KAY Lisinopril (Lisinopril 40 Mg Tablet) 40 mg PO DAILY [facility]; Protocol Last Admin: 04/03/24 08:57 Dose: 40 mg Documented By: KAY Magnesium Hydroxide (Milk Of Magnesia 30 Ml Oral.Susp) 30 ml PO DAILY PRN PRN Reason: Constipation Melatonin (Melatonin 3 Mg Tablet) 6 mg PO BEDTIME PRN PRN Reason: Insomnia Methylprednisolone Sodium Succinate (Methylprednisolone Sod Succ 40 Mg/Ml Vial) 40 mg IVPUSH Q12H [facility] Last Admin: 04/03/24 08:54 Dose: 40 mg Documented By: KAY Metoprolol Succinate (Metoprolol Succinate Er 50 Mg Tab.Er.24h) 50 mg PO DAILY [facility]; Protocol Last Admin: 04/03/24 08:57 Dose: 50 mg Documented By: KAY Montelukast Sodium (Montelukast Sodium 10 Mg Tablet) 10 mg PO DAILY [facility] Last Admin: 04/03/24 08:57 Dose: 10 mg Documented By: KAY Olanzapine (Olanzapine 5 Mg Tablet) 5 mg PO DAILY [facility] Last Admin: 04/03/24 08:56 Dose: 5 mg Documented By: KAY Ondansetron HCl (Ondansetron Hcl 4 Mg/2 Ml Vial) 4 mg IVPUSH Q8H PRN PRN Reason: Nausea and Vomiting Oseltamivir Phosphate (Oseltamivir Phosphate 75 Mg Capsule) 75 mg PO Q24H [facility] Stop: 04/05/24 13:01 Last Admin: 04/03/24 13:37 Dose: 75 mg Documented By: KAY Oxybutynin Chloride (Oxybutynin Chloride Er 5 Mg Tab.Er.24) 10 mg PO DAILY [facility] Last Admin: 04/03/24 08:56 Dose: 10 mg Documented By: KAY Sodium Chloride (0.9 % Sodium Chloride Flush 3 Ml Syringe) 3 ml IVFLUSH QSHIFT [facility] Last Admin: 04/03/24 16:37 Dose: 3 ml Documented By: KAY Tamsulosin HCl (Tamsulosin Hcl 0.4 Mg Capsule) 0.4 mg PO DAILY [facility] Last Admin: 04/03/24 08:57 Dose: 0.4 mg Documented By: KAY Labs 04/01/24 12:15 04/03/24 05:55 Labs: Laboratory Results - last 24 hr 04/03/24 05:55 Anion Gap 12 Estim Creat Clear Calc 44.2 Estimated GFR 38 Random Glucose 150 H Calcium 8.9 Microbiology Microbiology Results: Microbiology 04/01/24 Unknown Urine Culture - Preliminary Urine clean catch - Clean Catch Midstream Gram negative jessie 04/01/24 18:37 Blood Culture - Preliminary Blood - Venous No growth after 24 hours. 04/01/24 16:40 Blood Culture - Preliminary Blood - Venous No growth after 24 hours. Assessment and Plan (1) Influenza: Status: Acute Plan 73 yo M with PMH of HTN, BPH, mood, ? diastolic CHF, asthma who presented [place] [facility] with weakness and coughing 1. Acute asthma exacerbation due to underlying influenza A infection slowly improving continue updrafts and tamiflu start tapering steriods -- prednisone starting tomorrow 2. Possible acute on chronic HFpEF (echo in 2022 showing diastolic dysfunction) improved, continue home lasix dose 3. UTI gnr in urine continue rocephin 4. HTN continue baseline meds 5. Mood continue baseline meds psych consult to see if med changes indicated -- still pending 6. BPH flomax Full Code DVT pptx, heparin reason for on going hospitalization: slowly improving, tapering steroids, anticipate d/c tomorrow Quality Stroke Does the patient have a stroke diagnosis?: No VTE Prior VTE?: No VTE Risk Level:: Medical - moderate - high VTE Device Contraindication: Treatment Not Indicated VTE Drug Contraindication: N/A - Med Ordered
[2024-04-03 19:01] VITALS: PULSE 73; RESP 18; O2SAT 95
[2024-04-03] MEDS: HaloperidoL 5 MG TABLET 10 MG PO (20:32)
[2024-04-03] MEDS: Atorvastatin Calcium 10 MG TABLET PO (20:32)
[2024-04-03] MEDS: HaloperidoL 5 MG TABLET PO (20:32)
[2024-04-03 23:54] VITALS: BP 168/79; PULSE 54; RESP 18; TEMP 36.2; O2SAT 96
[2024-04-04] VITALS (9 sets, daily range): BP systolic 135–175; BP diastolic 71–94; PULSE 62–73; RESP 18–20; TEMP 36.2–37.1; O2SAT 94–95
--- NOTE | 2024-04-04 07:43 | P.CDIM_ITS ---
PROVIDER RESPONSE TEXT: To clarify, the appropriate diagnosis supported by the clinical indicators: Moderate persistent: with acute exacerbation QUERY TEXT: PHYSICIAN'S DOCUMENTATION REQUEST Date of Query: 04/03/2024 08:52 AM EST Patient Name: Nikita Broussard Admit Date: 04/01/2024 Dear Ronen Giordano MD, A review of the medical record indicates additional documentation may be needed. Please review below and update the documentation accordingly. The diagnosis of asthma was documented in the record on 04/02/24. Additional clinical indicators from the record include: lungs with diffuse rhonchi/wheezing Acute asthma exacerbation due to influenza A Tamiflu, steroids, updrafts Based on the above, please clarify in the Progress Notes further specificity regarding the type and a cuity of the asthma: Mild intermittent Please specify if with or without acute exacerbation or status asthmaticus Mild persistent Please specify if with or without acute exacerbation or status asthmaticus Moderate persistent Please specify if with or without acute exacerbation or status asthmaticus Severe persistent Please specify if with or without acute exacerbation or status asthmaticus Exercise induced Please specify if with or without acute exacerbation or status asthmaticus Chronic obstructive asthma and indicate if with acute lower respiratory infection Please specify if with or without acute exacerbation or status asthmaticus Asthma with underlying COPD and indicate if with acute lower respiratory infection Please specify if with or without acute exacerbation or status asthmaticus Other (explain) Clinically unable to determine (explain) Thank you, Saray Mares RN Use of terms such as suspected, likely, concern for, or probable (associated with a specific diagnosi s that is being evaluated, monitored, or treated as if it exists) are acceptable and can be coded in the inpatient se tting, when documented at the time of discharge. Please use your independent medical judgment in providing your response. THIS QUERY IS PART OF THE PERMANENT MEDICAL RECORD
[2024-04-04] MEDS: Albuterol/Iprat 2.5/0.5MG 3 ML AMPUL.NEB INHALE ×3 (08:26→19:18)
[2024-04-04] MEDS: lisinopriL 40 MG TABLET PO (09:00)
[2024-04-04] MEDS: Furosemide 40 MG TABLET PO (09:00)
[2024-04-04] MEDS: Benztropine Mesylate 0.5 MG TABLET PO (09:00)
[2024-04-04] MEDS: Famotidine 20 MG TABLET 40 MG PO (09:00)
[2024-04-04] MEDS: hydrALAZINE HCl 50 MG TABLET PO ×2 (09:00→20:56)
[2024-04-04] MEDS: Aspirin Enteric Coated 81 MG TABLET.DR PO (09:00)
[2024-04-04] MEDS: oxyBUTYnin chloride ER 5 MG TAB.ER.24 10 MG PO (09:01)
[2024-04-04] MEDS: Montelukast Sodium 10 MG TABLET PO (09:01)
[2024-04-04] MEDS: OLANZapine 5 MG TABLET PO (09:01)
[2024-04-04] MEDS: methylPREDNISolone Sod Succ 40 MG/ML VIAL IVPUSH (09:01)
[2024-04-04] MEDS: Tamsulosin HCL 0.4 MG CAPSULE PO (09:01)
[2024-04-04] MEDS: Metoprolol Succinate ER 50 MG TAB.ER.24H PO (09:01)
[2024-04-04] MEDS: Heparin Sodium,Porcine 5,000 UNIT/ML VIAL 5000 UNIT SUBCUT ×2 (09:01→20:56)
[2024-04-04] MEDS: Cyanocobalamin (Vitamin B-12) 1,000 MCG TABLET 1000 MCG PO (09:01)
[2024-04-04] MEDS: 0.9 % Sodium Chloride Flush 3 ML SYRINGE IVFLUSH ×3 (09:10→23:12)
--- NOTE | 2024-04-04 12:56 | MHC.CM.PN ---
Per MD rounds patient medically cleared for dc pending psych clearance. DCP: home w/ [facility] for PTKillian Meyer [facility] RN, requesting to be notified of dc w/ copy of dc summary, as [facility] assists w/ all meds. Betsy: phone # [phone], fax # [phone]
--- NOTE | 2024-04-04 14:22 | P.PNIM_ITS ---
Subjective Subjective Date of Service: 04/04/24 Interval History: seen and examined reports breathing better day by day knows hes in the hospital for his breathing troubles Review of Systems Negative except HPI/interval history. Physical Exam 2 Vital Signs: Vital Signs: Last Vital Signs Temp 97.3 F 04/04/24 08:00 Pulse 73 04/04/24 08:26 Resp 18 04/04/24 08:26 BP 175/94 H 04/04/24 08:00 Pulse Ox 94 04/04/24 08:00 O2 Del Method Room Air 04/04/24 08:00 Oxygen Flow Rate 2 04/01/24 11:05 BMI result Body Mass Index 31.2 Const: Other: General - no acute distress, appears comfortable Cardiovascular - regular rate and rhythm, S1-S2 Lungs - min wheezing Abdomen - soft, nontender, no rebound or guarding Extremities - no edema bilaterally Neuro - awake and alert, no focal deficits Objective Data Active Medications Acetaminophen (Acetaminophen 325 Mg Tablet) 650 mg PO Q6H PRN PRN Reason: Pain, Mild 1-3,fever,headache Albuterol Sulfate (Albuterol Sulfate (0.083%) 2.5 Mg/3 Ml Vial.Neb) 2.5 mg INHALE Q4H PRN PRN Reason: Shortness of Breath/Wheezing Last Admin: 04/02/24 16:14 Dose: 2.5 mg Documented By: TALIA Albuterol/Ipratropium (Albuterol/Iprat 2.5/0.5mg 3 Ml Ampul.Neb) 3 ml INHALE RQ6H WHILE AWAKE [facility] Last Admin: 04/04/24 08:26 Dose: 3 ml Documented By: VIRGINIA Aspirin (Aspirin Enteric Coated 81 Mg Tablet.) 81 mg PO DAILY [facility] Last Admin: 04/04/24 09:00 Dose: 81 mg Documented By: TANIYA Atorvastatin Calcium (Atorvastatin Calcium 10 Mg Tablet) 10 mg PO BEDTIME [facility] Last Admin: 04/03/24 20:32 Dose: 10 mg Documented By: JACKIE Benzonatate (Benzonatate 100 Mg Capsule) 100 mg PO TID PRN PRN Reason: Cough Benztropine Mesylate (Benztropine Mesylate 0.5 Mg Tablet) 0.5 mg PO DAILY [facility] Last Admin: 04/04/24 09:00 Dose: 0.5 mg Documented By: TANIYA Calcium Carbonate (Calcium Carbonate 750 Mg Tab.Chew) 750 mg PO Q4H PRN PRN Reason: Heartburn Ceftriaxone Sodium (Ceftriaxone Sodium 1 Gm Vial) 1 gm IVPUSH Q24H [facility] Last Admin: 04/03/24 16:38 Dose: 1 gm Documented By: KAY Cyanocobalamin (Cyanocobalamin (Vitamin B-12) 1,000 Mcg Tablet) 1,000 mcg PO DAILY [facility] Last Admin: 04/04/24 09:01 Dose: 1,000 mcg Documented By: TANIYA Famotidine (Famotidine 20 Mg Tablet) 40 mg PO DAILY [facility] Last Admin: 04/04/24 09:00 Dose: 40 mg Documented By: TANIYA Furosemide (Furosemide 40 Mg Tablet) 40 mg PO DAILY [facility]; Protocol Last Admin: 04/04/24 09:00 Dose: 40 mg Documented By: TANIYA Haloperidol (Haloperidol 5 Mg Tablet) 5 mg PO BEDTIME [facility] Last Admin: 04/03/24 20:32 Dose: 5 mg Documented By: JACKIE Haloperidol (Haloperidol 5 Mg Tablet) 10 mg PO BEDTIME [facility] Last Admin: 04/03/24 20:32 Dose: 10 mg Documented By: JACKIE Heparin Sodium (Porcine) (Heparin Sodium,Porcine 5,000 Unit/Ml Vial) 5,000 unit SUBCUT Q12H [facility] Last Admin: 04/04/24 09:01 Dose: 5,000 unit Documented By: TANIYA Hydralazine HCl (Hydralazine Hcl 50 Mg Tablet) 50 mg PO BID [facility]; Protocol Last Admin: 04/04/24 09:00 Dose: 50 mg Documented By: TANIYA Lisinopril (Lisinopril 40 Mg Tablet) 40 mg PO DAILY [facility]; Protocol Last Admin: 04/04/24 09:00 Dose: 40 mg Documented By: TANIYA Magnesium Hydroxide (Milk Of Magnesia 30 Ml Oral.Susp) 30 ml PO DAILY PRN PRN Reason: Constipation Melatonin (Melatonin 3 Mg Tablet) 6 mg PO BEDTIME PRN PRN Reason: Insomnia Methylprednisolone Sodium Succinate (Methylprednisolone Sod Succ 40 Mg/Ml Vial) 40 mg IVPUSH Q12H [facility] Last Admin: 04/04/24 09:01 Dose: 40 mg Documented By: TANIYA Metoprolol Succinate (Metoprolol Succinate Er 50 Mg Tab.Er.24h) 50 mg PO DAILY [facility]; Protocol Last Admin: 04/04/24 09:01 Dose: 50 mg Documented By: TANIYA Montelukast Sodium (Montelukast Sodium 10 Mg Tablet) 10 mg PO DAILY [facility] Last Admin: 04/04/24 09:01 Dose: 10 mg Documented By: TANIYA Olanzapine (Olanzapine 5 Mg Tablet) 5 mg PO DAILY [facility] Last Admin: 04/04/24 09:01 Dose: 5 mg Documented By: TANIYA Ondansetron HCl (Ondansetron Hcl 4 Mg/2 Ml Vial) 4 mg IVPUSH Q8H PRN PRN Reason: Nausea and Vomiting Oseltamivir Phosphate (Oseltamivir Phosphate 75 Mg Capsule) 75 mg PO Q24H [facility] Stop: 04/05/24 13:01 Last Admin: 04/03/24 13:37 Dose: 75 mg Documented By: KAY Oxybutynin Chloride (Oxybutynin Chloride Er 5 Mg Tab.Er.24) 10 mg PO DAILY [facility] Last Admin: 04/04/24 09:01 Dose: 10 mg Documented By: TANIYA Sodium Chloride (0.9 % Sodium Chloride Flush 3 Ml Syringe) 3 ml IVFLUSH QSHIFT [facility] Last Admin: 04/04/24 09:10 Dose: 3 ml Documented By: TANIYA Tamsulosin HCl (Tamsulosin Hcl 0.4 Mg Capsule) 0.4 mg PO DAILY [facility] Last Admin: 04/04/24 09:01 Dose: 0.4 mg Documented By: TANIYA Labs 04/01/24 12:15 04/03/24 05:55 Microbiology Microbiology Results: Microbiology 04/01/24 Unknown Urine Culture - Final Urine clean catch - Clean Catch Midstream Escherichia coli 04/01/24 18:37 Blood Culture - Preliminary Blood - Venous No growth after 48 hours. 04/01/24 16:40 Blood Culture - Preliminary Blood - Venous No growth after 48 hours. Assessment and Plan (1) Influenza: Status: Acute Plan 73 yo M with PMH of HTN, BPH, mood, ? diastolic CHF, asthma who presented to [facility] with weakness and coughing 1. Acute asthma exacerbation due to underlying influenza A infection improved, transition to oral prednisone starting toorrow continue updrafts and tamiflu 2. Possible acute on chronic HFpEF (echo in 2022 showing diastolic dysfunction) improved, continue home lasix dose 3. E. coli uti blood cx negative s/p rocephin, change to ceftin 250mg bid 4. HTN continue baseline meds 5. Mood continue baseline meds psych eval on going -- requested CT head which is completed (showing evidence of chronic ischmeic disease); await full eval to determined dispo 6. BPH flomax Full Code DVT pptx, heparin reason for on going hospitalization: psych eval completion to evaluate appropriate dispo Quality Stroke Does the patient have a stroke diagnosis?: No VTE Prior VTE?: No VTE Risk Level:: Medical - moderate - high VTE Device Contraindication: Treatment Not Indicated VTE Drug Contraindication: N/A - Med Ordered
--- NOTE | 2024-04-04 14:40 | P.CNPS_ITS ---
History of Present Illness Date of Service: 04/04/2024 Chief Complaint: Flu frailty, UTI Requesting physician: Ronen Giordano Discussed with referring provider: Yes Sources of Information: patient interviewed, chart reviewed and crisis/core team assessment reviewed Additional Sources of Information: Flaco Jon- [facility] compounding and finishing supervisor [phone] Betsy- JUSTIN from [facility] HPI Narrative: Mr. Broussard is a 73 year-old male with hx of schizophrenia who was brought to [facility] ED as he presented as disheveled. He was found to have a UTI and SOB due to influenza type A. Psychiatry was consulted to assess his ability to care for himself and whether psychiatric or other factors affecting this. Pt seen in his room. He presents as pleasant and cooperative. He reports he is here because of difficulty breathing and glad that he finally did listen to his case reviewer as he was initially reluctant to come to the hospital. He reports he is at [facility] in [place]. He does not know the month but does know the year. Head CT does show atrophy and microvascular changes. He does not present with acute psychosis or delusional content. He reports he has a VNA from [facility] go helps managing his medications. He also reports case reviewer bring him to appointments, which is documented on medical notes. This staff writer obtained collateral information from manager of merchandising from [facility] Flaco and JUSTIN Dorsey from [facility]. They both denied any safety concerns in the community in terms of his ability to care for himself. No wondering behaviors nor other unsafe behaviors potentially due to cognitive impairments. Review of Systems Review of Systems He reports difficulty breathing PMFSH Medical History Essential hypertension Constipation Vasovagal syncope Chronic acquired lymphedema Surgical History History of hydrocelectomy Diagnostics Vital Signs (24Hr): Vital Signs - 24 hr 04/03/24 15:02 04/03/24 15:03 04/03/24 19:01 Temperature 97.1 F Pulse Rate 80 80 73 Respiratory Rate 18 16 18 Blood Pressure 142/98 H Pulse Oximetry 95 Oxygen Delivery Method Room Air 04/03/24 23:54 04/04/24 08:00 04/04/24 08:26 Temperature 97.2 F 97.3 F Pulse Rate 54 73 73 Respiratory Rate 18 18 18 Blood Pressure 168/79 H 175/94 H Pulse Oximetry 96 94 Oxygen Delivery Method Room Air Room Air BMI result Body Mass Index 31.2 Labs 04/01/24 12:15 04/03/24 05:55 Labs: Laboratory Results - last 48 hr 04/03/24 05:55 Sodium 145 Potassium 4.3 Chloride 113 H Carbon Dioxide 24 Anion Gap 12 BUN 35 H Creatinine 1.75 H Estim Creat Clear Calc 44.2 Estimated GFR 38 Random Glucose 150 H Calcium 8.9 Imaging Radiology Impressions: ITS Impressions Chest X-Ray 04/01/24 11:08 IMPRESSION: Consider mild interstitial edema in the correct clinical settings superimposed acute small airway inflammatory process cannot be excluded. Electronically signed by: Mike Linton MD 04/01/2024 11:32 AM EST RP Head CT 04/04/24 13:53 IMPRESSION: Small vessel occlusive disease. Superimposed acute stroke/nonhemorrhagic ischemia cannot be excluded. Secretions in the basal ganglia which could be related to hyperparathyroidism versus pseudohypoparathyroidism. Electronically signed by: Mike Linton MD 04/04/2024 02:17 PM EST RP Mental Status Exam Mental Status Exam Narrative: Appearance: wearing hospital gown, fair hygiene, in NAF Behavior: cooperative Psychomotor: no agitation or retardation noted. Speech: clear, normal rate, soft tone, spontaneous TP: mostly linear TC: feeling tired and unwell Mood: I ain't well Affect: congruent, short of breath SI: none HI: none VH/AH: no acute signs Delusions: on overt delusional content Insight/judgment: poor x 2. Memory/cog: alert, oriented to place (confused about name but knows city), knows year but not the month. He may benefit from MOCA and ACL OP. Medications Medications Current Medications Acetaminophen (Acetaminophen 325 Mg Tablet) 650 mg PO Q6H PRN PRN Reason: Pain, Mild 1-3,fever,headache Albuterol Sulfate (Albuterol Sulfate (0.083%) 2.5 Mg/3 Ml Vial.Neb) 2.5 mg INHALE Q4H PRN PRN Reason: Shortness of Breath/Wheezing Last Admin: 04/02/24 16:14 Dose: 2.5 mg Albuterol/Ipratropium (Albuterol/Iprat 2.5/0.5mg 3 Ml Ampul.Neb) 3 ml INHALE RQ6H WHILE AWAKE [facility] Last Admin: 04/04/24 08:26 Dose: 3 ml Aspirin (Aspirin Enteric Coated 81 Mg Tablet.Dr) 81 mg PO DAILY [facility] Last Admin: 04/04/24 09:00 Dose: 81 mg Atorvastatin Calcium (Atorvastatin Calcium 10 Mg Tablet) 10 mg PO BEDTIME [facility] Last Admin: 04/03/24 20:32 Dose: 10 mg Benzonatate (Benzonatate 100 Mg Capsule) 100 mg PO TID PRN PRN Reason: Cough Benztropine Mesylate (Benztropine Mesylate 0.5 Mg Tablet) 0.5 mg PO DAILY [facility] Last Admin: 04/04/24 09:00 Dose: 0.5 mg Calcium Carbonate (Calcium Carbonate 750 Mg Tab.Chew) 750 mg PO Q4H PRN PRN Reason: Heartburn Cefuroxime Axetil (Cefuroxime Axetil 250 Mg Tablet) 250 mg PO Q12H [facility] Cyanocobalamin (Cyanocobalamin (Vitamin B-12) 1,000 Mcg Tablet) 1,000 mcg PO DAILY [facility] Last Admin: 04/04/24 09:01 Dose: 1,000 mcg Famotidine (Famotidine 20 Mg Tablet) 40 mg PO DAILY [facility] Last Admin: 04/04/24 09:00 Dose: 40 mg Furosemide (Furosemide 40 Mg Tablet) 40 mg PO DAILY [facility]; Protocol Last Admin: 04/04/24 09:00 Dose: 40 mg Haloperidol (Haloperidol 5 Mg Tablet) 5 mg PO BEDTIME [facility] Last Admin: 04/03/24 20:32 Dose: 5 mg Haloperidol (Haloperidol 5 Mg Tablet) 10 mg PO BEDTIME [facility] Last Admin: 04/03/24 20:32 Dose: 10 mg Heparin Sodium (Porcine) (Heparin Sodium,Porcine 5,000 Unit/Ml Vial) 5,000 unit SUBCUT Q12H [facility] Last Admin: 04/04/24 09:01 Dose: 5,000 unit Hydralazine HCl (Hydralazine Hcl 50 Mg Tablet) 50 mg PO BID [facility]; Protocol Last Admin: 04/04/24 09:00 Dose: 50 mg Lisinopril (Lisinopril 40 Mg Tablet) 40 mg PO DAILY [facility]; Protocol Last Admin: 04/04/24 09:00 Dose: 40 mg Magnesium Hydroxide (Milk Of Magnesia 30 Ml Oral.Susp) 30 ml PO DAILY PRN PRN Reason: Constipation Melatonin (Melatonin 3 Mg Tablet) 6 mg PO BEDTIME PRN PRN Reason: Insomnia Metoprolol Succinate (Metoprolol Succinate Er 50 Mg Tab.Er.24h) 50 mg PO DAILY [facility]; Protocol Last Admin: 04/04/24 09:01 Dose: 50 mg Montelukast Sodium (Montelukast Sodium 10 Mg Tablet) 10 mg PO DAILY [facility] Last Admin: 04/04/24 09:01 Dose: 10 mg Olanzapine (Olanzapine 5 Mg Tablet) 5 mg PO DAILY [facility] Last Admin: 04/04/24 09:01 Dose: 5 mg Ondansetron HCl (Ondansetron Hcl 4 Mg/2 Ml Vial) 4 mg IVPUSH Q8H PRN PRN Reason: Nausea and Vomiting Oseltamivir Phosphate (Oseltamivir Phosphate 75 Mg Capsule) 75 mg PO Q24H [facility] Stop: 04/05/24 13:01 Last Admin: 04/03/24 13:37 Dose: 75 mg Oxybutynin Chloride (Oxybutynin Chloride Er 5 Mg Tab.Er.24) 10 mg PO DAILY [facility] Last Admin: 04/04/24 09:01 Dose: 10 mg Prednisone (Prednisone 20 Mg Tablet) 40 mg PO DAILY [facility] Sodium Chloride (0.9 % Sodium Chloride Flush 3 Ml Syringe) 3 ml IVFLUSH QSHIFT [facility] Last Admin: 04/04/24 09:10 Dose: 3 ml Tamsulosin HCl (Tamsulosin Hcl 0.4 Mg Capsule) 0.4 mg PO DAILY [facility] Last Admin: 04/04/24 09:01 Dose: 0.4 mg Allergies Allergies Allergy/AdvReac Type Severity Reaction Status Date / Time No Known Allergies Allergy Verified 04/01/24 11:06 Assessment & Plan Assessment & Plan (1) Schizophrenia: Status: Acute Code(s): F20.9 - Schizophrenia, unspecified (2) Cognitive impairment: Status: Acute Code(s): R41.89 - Other symptoms and signs involving cognitive functions and awareness Plan Mr. Broussard is a 73 year-old male with hx of schizophrenia, who was brought by case reviewer who initially had reported concern in terms of pt being disheveled. Psychiatry was asked to assess ability to function. Psychiatrically, pt appears stable; he does not have acute signs of psychosis or delusional content, no SI or HI. Notable negative symptoms of schizophrenia with poverty of thought. Cognitive, pt does appear to have underlying cognitive impairments. He is not delirious (attention is intact). However, his orientation has some impairments in that he does not know the month. This staff writer spoke with [facility] managers Flaco and [facility] RN Melida to gather further collateral information- they do not have safety concerns in terms of his ability to live independently with the supports that he currently has. He has visiting RN, he is brought to appointments and has cleaning services and home health aid services. I do not recommend changes to his psych medications. Pt does present stable psychiatrically. If anything, I would recommend that pt follows up with his PCP to do more formal assessment of his memory and cognition- but again, no safety concerns are raised (such as wondering, or leaving stove on) with current (extensive) supports he has from [facility]. Total time managing care of this patient today ____ minutes.
[2024-04-04] MEDS: Oseltamivir Phosphate 75 MG CAPSULE PO (15:26)
[2024-04-04] MEDS: Milk of Magnesia 30 ML ORAL.SUSP PO (17:48)
[2024-04-04] MEDS: cefuroxime axetiL 250 MG TABLET PO (17:48)
[2024-04-04] MEDS: HaloperidoL 5 MG TABLET PO (20:55)
[2024-04-04] MEDS: HaloperidoL 5 MG TABLET 10 MG PO (20:55)
[2024-04-04] MEDS: Atorvastatin Calcium 10 MG TABLET PO (20:55)
[2024-04-04] MEDS: Benzonatate 100 MG CAPSULE PO (20:55)
[2024-04-05] MEDS: cefuroxime axetiL 250 MG TABLET PO (05:46)
[2024-04-05 07:50] VITALS: BP 141/73; PULSE 73; RESP 18; TEMP 36.6; O2SAT 94
[2024-04-05] MEDS: Heparin Sodium,Porcine 5,000 UNIT/ML VIAL 5000 UNIT SUBCUT (08:11)
[2024-04-05] MEDS: lisinopriL 40 MG TABLET PO (08:11)
[2024-04-05] MEDS: Benztropine Mesylate 0.5 MG TABLET PO (08:12)
[2024-04-05] MEDS: Famotidine 20 MG TABLET 40 MG PO (08:12)
[2024-04-05] MEDS: predniSONE 20 MG TABLET 40 MG PO (08:12)
[2024-04-05] MEDS: hydrALAZINE HCl 50 MG TABLET PO (08:12)
[2024-04-05] MEDS: Montelukast Sodium 10 MG TABLET PO (08:12)
[2024-04-05] MEDS: Furosemide 40 MG TABLET PO (08:12)
[2024-04-05] MEDS: Tamsulosin HCL 0.4 MG CAPSULE PO (08:12)
[2024-04-05] MEDS: Aspirin Enteric Coated 81 MG TABLET.DR PO (08:12)
[2024-04-05] MEDS: oxyBUTYnin chloride ER 5 MG TAB.ER.24 10 MG PO (08:13)
[2024-04-05] MEDS: OLANZapine 5 MG TABLET PO (08:13)
[2024-04-05] MEDS: Cyanocobalamin (Vitamin B-12) 1,000 MCG TABLET 1000 MCG PO (08:13)
[2024-04-05] MEDS: Metoprolol Succinate ER 50 MG TAB.ER.24H PO (08:13)
[2024-04-05] MEDS: 0.9 % Sodium Chloride Flush 3 ML SYRINGE IVFLUSH (08:18)
[2024-04-05] MEDS: Albuterol/Iprat 2.5/0.5MG 3 ML AMPUL.NEB INHALE (08:19)
[2024-04-05 08:20] VITALS: PULSE 73; RESP 18; O2SAT 95
--- NOTE | 2024-04-05 08:35 | PM.DS ---
DS: Providers Provider Date of Service: 04/05/24 Date of admission: 04/01/24 17:22 Date of discharge: 04/05/24 Primary care physician: Panda Pablo MD Consults: 04/01/24 18:01 Consult to Psychiatry Routine Consulting Provider: [facility] Psych Covering Reason for consultation: shizophrenia, self neglect, Disheveled, medication advise DS: Diagnosis Discharge Diagnosis (1) Schizophrenia: Status: Acute (2) Cognitive impairment: Status: Acute DS: Summary Hospital Course Hospital Course: HPI From admission H&P: A 73 years old male with PMH of HTNn BPH, mood disorder, behavioral disorder, asthma among others who is presenting to the hospital for evaluation of increase weakness and coughing. The patient reports feeling weak and coughing for almost a month now. He is very vague and frail looking. reports he walks around at his place without a cane or walker. Today his manager rn case called EMS as she was concerned with his house condition. He was disheveled and weak upon arrival. Tested positive for Flu A. evaluated by PT who recommended STR but the patient refused to look into that option at this point. Urine concerning for possible infection. Will be admitted for management of UTI, Flu and Frailty and elderly care given concerns about his home condition and safety. Hospital course: patient was started on IV steroids and scheduled bronchodilators for his asthma exacerbation due to underlying influenza a infection. Over the course of his hospitalization his symptoms have essentially resolved. He will be transitioned to complete a course of oral prednisone. Patient was also found have a urinary tract infection for which was treated with ceftriaxone be sent on Ceftin to complete a course of antibiotics. In regards to his mental health and ability to care for himself, he was evaluated by Psychiatry. Collateral information was collected from his [facility] RN and accounts receivable supervisor and no safety concerns were raised. psychiatry recommended further cognitive evaluation via the patient's PCP. He will be discharged to resume his prior outpatient services. Final discharge diagnosis 1. Acute asthma exacerbation due to underlying influenza a infection 2. Urinary tract infection due to E coli 3. Hypertension 4. Mood 6. BPH Time Attestation Discharge Coordination Time (in mins): 35 Quality: Safe Use of Opioids Does Pt have an Active Cancer Diagnosis on the Problem List?: No Quality: Stroke Does the patient have a stroke diagnosis?: No Physical Exam Vital Signs: Vital Signs: Last Vital Signs Temp 97.9 F 04/05/24 07:50 Pulse 73 04/05/24 08:20 Resp 18 04/05/24 08:20 BP 141/73 H 04/05/24 07:50 Pulse Ox 94 04/05/24 07:50 O2 Del Method Room Air 04/05/24 07:50 Oxygen Flow Rate 2 04/01/24 11:05 BMI result Body Mass Index 31.2 Const: Other: General - no acute distress, appears comfortable Cardiovascular - regular rate and rhythm, S1-S2 Lungs - normal respiratory effort, clear to auscultation bilaterally, no wheezing Abdomen - soft, nontender, no rebound or guarding Extremities - no edema bilaterally Neuro - awake and alert, no focal deficits DS: Data Data Completed and Pending Labs on day of discharge: Preliminary micro results at discharge 04/01/24 18:37 Blood Culture - Preliminary Blood - Venous No growth after 48 hours. 04/01/24 16:40 Blood Culture - Preliminary Blood - Venous No growth after 48 hours. Discharge Plan Discharge Anticipated Discharge Date/Time: 04/04/24 14:00 Patient Disposition: Home Health Service Discharge Diagnosis: Influenza, Asthma Referrals: Panda Pablo MD [Primary Care Provider] - 1 Week Discharge Medications: New prednisone 20 mg tablet 40 mg PO DAILY Qty: 10 0RF cefuroxime axetil 250 mg tablet 250 mg PO BID Qty: 10 0RF Continued benztropine 0.5 mg tablet 0.5 mg PO DAILY haloperidol 5 mg tablet 5 mg PO BEDTIME metoprolol succinate 50 mg tablet extended release 24 hr 50 mg PO DAILY aspirin 81 mg tablet,delayed release (DR/EC) 81 mg PO DAILY acetaminophen 500 mg Tablet 500 mg PO Q6H PRN (Reason: Pain) tamsulosin 0.4 mg capsule 0.4 mg PO DAILY simvastatin 20 mg tablet 20 mg PO BEDTIME haloperidol 10 mg tablet 10 mg PO BEDTIME docusate sodium 100 mg Capsule 100 mg PO BID montelukast 10 mg tablet 10 mg PO DAILY lisinopril 40 mg Tablet 40 mg PO DAILY potassium chloride 10 mEq tablet extended release 10 meq PO DAILY hydralazine 50 mg tablet 50 mg PO BID albuterol sulfate [Ventolin HFA] 90 mcg/actuation HFA aerosol inhaler 90 mcg inhalation DAILY furosemide [Lasix] 40 mg Tablet 40 mg PO QAM ergocalciferol (vitamin D2) 25,000 unit Capsule 50,000 unit PO Q30D cyanocobalamin (vitamin B-12) [Vitamin B-12] 1,000 mcg Tablet 1,000 mcg PO DAILY Qty: 90 0RF famotidine 40 mg tablet 40 mg PO DAILY olanzapine 5 mg tablet 5 mg PO DAILY oxybutynin chloride 10 mg tablet extended release 24hr 10 mg PO DAILY Discharge Orders: Discharge Order (Routine); Ordered 04/05/24 Ordered By: Ronen Giordano Diet: Advance to usual diet Activity on Discharge: As tolerated Stand Alone Forms: Patient Portal Discharge page Print Language: Cook Islander Care Plan Goals: To stay healthy and out of the hospital. To finish antibiotics and prednisone Health Concerns: see d/c summary Plan of Treatment: see d/c summary Assessment: see d/c summary
--- NOTE | 2024-04-05 10:16 | MHC.CM.PN ---
Addendum entered by Sandi Trejo 04/05/24 12:01: DCS WAS FAXED TO [facility] RN, MAK [phone] @ 0945 HOURS A VM WAS ALSO LEFT HER HER @ [phone] CM ALSO RECEIVED A CALL FROM [facility] [employer] DRILLING MACHINE OPERATOR RNSIMONA WHO CONFIRMED NEW MEDS AND WHERE THEY WERE SENT Original Note: PT CLEARED TO DC HOME TODAY WITH RESUMPTION OF [facility] SUPPORT AND NEW [facility] SERVICES [facility] TRANSPORT WILL BE ARRANGED
--- NOTE | 2024-04-05 10:20 | W.MHC.F2F ---
Service Date Service Date: 04/05/24 Encounter Date of encounter: 04/05/24 Reasons for Services Signs and symptoms assessed: med mgmt neuro assessment respiratory status Reason for intermediate: neurological assessment, medication management and medication treatment Reason for physical therapy: home safety and mobility, therapeutic exercises and gait/transfer training Overseeing Care: Panda Pablo Homebound: Leaving the home is medically contraindicated at this time without the asist of a device and/or another person due th the listed conditions above and below. Reason homebound: psychologically impaired / unsafe and cognitively impaired / unsafe Certification: Based on the above findings, I certify that this patient is confined to the home and needs intermittent intermediate care, physical therapy and/or speech therapy, or continues to need occupational therapy. The patient is under my care, and I have initiated the establishment of the plan of care. The patient will be followed by a physician who will periodically review the plan of care. Time Spent With Patient Time: Total time managing care of this patient today ____ minutes.
[2024-04-05 10:37] VITALS: BP 130/70; PULSE 74; RESP 18; TEMP 36.4; O2SAT 93
== END 2024-04-05 11:11 | disposition home health service (06) | DRG 193 ==
LOC: HO.ED 15:56 → HO.EDOVER 17:41 → HO.S3 04-02 00:05
PROVIDERS: Admitting Provider Student in an Organized Health Care Education/Training Program; Emergency Provider Emergency Medicine Emergency Medical Services; PCP Internal Medicine; Visit Provider Family Medicine
DX: J10.1 Influenza due to other identified influenza virus with other respiratory manifestations (principal); I50.33 Acute on chronic diastolic (congestive) heart failure; J45.41 Moderate persistent asthma with (acute) exacerbation; I13.0 Hypertensive heart and chronic kidney disease with heart failure and stage 1 through stage 4 chronic kidney disease, or unspecified chronic kidney disease; N39.0 Urinary tract infection, site not specified; N18.30 Chronic kidney disease, stage 3 unspecified; B96.20 Unspecified Escherichia coli [E. coli] as the cause of diseases classified elsewhere; R53.81 Other malaise; F20.9 Schizophrenia, unspecified; N40.0 Benign prostatic hyperplasia without lower urinary tract symptoms; Z79.82 Long term (current) use of aspirin; Z79.899 Other long term (current) drug therapy
CPT/HCPCS: 0241U; 36415; 70450; 71045; 80048; 80076; 81001; 83605; 83880; 84484; 85025; 87040; 87086; 87088; 87186; 93005; 94640; 97116; 97161; 97530; 99221; 99285; J0696; J1644; J2919

== ENCOUNTER → 2024-04-01 11:08 | Outpatient (BNV) | payer MEDICARE, SELFPAY | PROVIDERS: Emergency Provider Emergency Medicine Emergency Medical Services; PCP Internal Medicine; Visit Provider Internal Medicine | DX: I49.9 Cardiac arrhythmia, unspecified (principal); R07.9 Chest pain, unspecified | CPT/HCPCS: 93010 ==

== ENCOUNTER → 2024-04-01 11:08 | Outpatient (BNV) | payer MEDICARE, SELFPAY | PROVIDERS: Emergency Provider Emergency Medicine Emergency Medical Services; Visit Provider Radiology Diagnostic Radiology | DX: R06.02 Shortness of breath (principal) | CPT/HCPCS: 71045 ==

== ENCOUNTER 2024-04-01 17:22 | Outpatient (BNV) | payer MEDICARE, SELFPAY | END 2024-04-04 13:53 | PROVIDERS: Admitting Provider Student in an Organized Health Care Education/Training Program; Emergency Provider Emergency Medicine Emergency Medical Services; PCP Internal Medicine; Visit Provider Radiology Diagnostic Radiology | DX: R41.0 Disorientation, unspecified (principal) | CPT/HCPCS: 70450 ==

== ENCOUNTER → 2024-04-01 17:22 | Outpatient (BNV) | payer MEDICARE, SELFPAY | PROVIDERS: Admitting Provider Student in an Organized Health Care Education/Training Program; Emergency Provider Emergency Medicine Emergency Medical Services; PCP Internal Medicine; Visit Provider Student in an Organized Health Care Education/Training Program | DX: J11.1 Influenza due to unidentified influenza virus with other respiratory manifestations (principal) | CPT/HCPCS: 99232 ==

== ENCOUNTER → 2024-04-01 17:22 | Outpatient (BNV) | payer MEDICARE, SELFPAY | PROVIDERS: Admitting Provider Student in an Organized Health Care Education/Training Program; Emergency Provider Emergency Medicine Emergency Medical Services; PCP Internal Medicine; Visit Provider Social Worker | DX: F20.9 Schizophrenia, unspecified (principal); R41.89 Other symptoms and signs involving cognitive functions and awareness | CPT/HCPCS: 99232 ==

== ENCOUNTER 2024-05-13 10:43 | Outpatient (REF) | payer MEDICARE, SELFPAY ==
[2024-05-13 12:03] LABS: Alanine Aminotransferase 9 U/L (0-40); Albumin Level 3.8 g/dL (3.5-5.0); Alkaline Phosphatase 89 U/L (39-117); Anion Gap 11 (12-20); Aspartate Amino Transferase 20 U/L (5-37); Bilirubin Direct 0.2 mg/dL (0.0-0.5); Bilirubin Total 0.2 mg/dL (0.0-1.0); Blood Urea Nitrogen 28 mg/dL (9-16); Calcium 9.1 mg/dL (8.4-10.2); Carbon Dioxide 29 mmol/L (22-29); Chloride 109 mmol/L (96-108); Cholesterol 142 mg/dL (<200); Estimated Glomerular Filt Rate 30; Glucose Random 120 mg/dL (60-115); HDL Cholesterol 36 mg/dL (>40); LDL Cholesterol Calculated 86 mg/dL (<100); Sodium 145 mmol/L (135-145); Total Protein 7.6 g/dL (6.5-8.0); Triglycerides 100 mg/dL (<150)
[2024-05-13 12:48] LABS: Folate 7.1 ng/mL (> or = 4.0); Syphilis Screen Nonreactive (Nonreactive)
--- OUTSIDE RECORDS SUMMARY | 2024-05-13 12:54 | XMS_ITS | Encounter Summary ---
Author Organization [employer] Address [address] [place] [address] [address] [place] [address] Care Team Providers Care Electronic Controls Repairer Supervisor Name Role Phone Panda Crooks MD Primary Care Provide r Encounter Details Date Type Department Care Team (Late st Contact Info) Description 09/11/2022 Orders Only [facility] [address] [place] [address] [phone] Elodia Rivero MD [address] [place] [address] [phone] Social History Tobacco Use Types Packs/Day Years [...] Care Team (Late st Contact Info) Description 07/22/2024 2:00 PM EDT Office Visit [facility] [address] [place] [address] [phone] Panda Crooks MD [address] [place] [address] [phone] documented as of this encounter Visit Diagnoses Not on filedocumented in this encounter Additional Health Concerns Assessment Noted Time PHQ-9 Depression Total Score: 12 023 12:21 PM EDT documented as of this encounter Care Teams Electronic Controls Repairer Supervisor Relationship Specialty Start Date End Date Panda Crooks MD [address] [place] [address] PCP - General Internal Medicine 12/18/13 Julieta Ashley 04/06/24 documented as of this encounter
--- OUTSIDE RECORDS SUMMARY | 2024-05-13 12:54 | XMS_ITS | Encounter Summary ---
Author Organization [facility] Address [address] [facility] [address] [place] [address] Phone Care Team Providers Care Motor Polarizer Name Role Phone Panda Muniz MD Primary Care Provider Unav ailable Reason for Visit * Reason Comments Med Refill Encounter Details Date Type Department Care Team (Late Contact Info) Description 05/15/2022 Refill [facility] [address] [address] [place] [address] Sami Morales MD Social History [...] Visit [facility] [address] [place] [address] [place] [phone] Alfonso Cole MD [address] [facility] [address] [place] [phone] documented as of this encounter Visit Diagnoses Not on filedocumented in this encounter Care Teams Motor Polarizer Relationship Specialty Start Date End Date Panda Muniz MD PCP - General 03/15/20 documented as of this encounter
--- OUTSIDE RECORDS SUMMARY | 2024-05-13 12:54 | XMS_ITS | Encounter Summary ---
Author Organization [employer] Address [address] [facility] 7t [place] [address] Care Team Providers Care Coordinator Of Placement Name Role Phone Panda Crooks MD Primary Care Provide r Encounter Details Date Type Department Care Team (Latest Contact Info) Description 04/22/2024 Travel Social History Tobacco Use Types Packs/Day Years [...] is your housing situation today? I have deenavikas saavedra 04/22/[address] you li ve. Do you have problems with any of the following? None of the above 04/22/2024 Food Insecurity Answer Date Recorded Within the past 12 months, y ou worried that your food would run out before you got money to buy more: Never True 04/22/2024 Within the past 12 months,th e food you bought just didn't last and you didn't have enough money to get more: Never True Transportation Answer Date Recorded In the past 12 months, has l ack of transportation kept you from medical appts, meetings, work or from getting things needed for daily living? No 04/22/2024 Utilities Answer Date Recorded In the past 12 months, has t he electric, gas, oil or water company threatened to shut off services in your home? No 04/22/2024 Depression Answer Date Recorded Patient Health Questionnaire-2 Score 0 11/01/2023 Internet Access Answer Date Recorded Internet Access Q1 I am not sure 04/22/2024 Internet Access Q2 Not on file 04/22/2024 Sex and Gender Information Value Date Recorded Sex Assigned at Male 01/02/2022 10:16 AM EDT Legal Sex Male 10:16 AM EDT Gender Identity Male 01/02/2022 10:16 AM EDT Sexual Orientation Straight 01/02/2022 10 :16 AM EDT documented as of this encounter Plan of Treatment Upcoming Encounters Date Type Department Care Team (Late st Contact Info) Description 07/22/2024 2:00 PM EDT Office Visit [facility] [address] [place] [address] Panda Crooks MD [address] [place] [phone] documented as of this encounter Visit Diagnoses Not on filedocumented in this encounter Additional Health Concerns Assessment Noted Time PHQ-9 Depression Total Score: 0 11/01/19 24 10:45 AM EDT documented as of this encounter Care Teams Coordinator Of Placement Relationship Specialty Start Date End Date Panda Crooks MD [address] [place] [address] PCP - General Internal Medicine 12/18/13 Julieta TATE 04/06/24 documented as of this encounter
--- OUTSIDE RECORDS SUMMARY | 2024-05-13 12:54 | XMS_ITS | Encounter Summary ---
Author Organization [employer] Address 75 [facility] 7 [place] [address] Care Team Providers Care Air Conditioning Coil Assembler Name Role Phone Panda Crooks MD Primary Care Provide r Reason for Visit * Reason Comments Med Refill Encounter Details Date Type Department Care Team ([facility] st Contact Info) Description 05/13/2024 Refill [facility] 230 [place], [place] [phone] Panda Crooks MD [address] [place] [address] Social History Tobacco Use Types Packs/Day Years [...] housing situation today? I have deena saavedra 04/22/[address] you [...] Description 07/22/2024 2:00 PM EDT Office Visit [facility] 230 [place] [address] Panda Crooks MD [address] [place] [address] documented as of this encounter Visit Diagnoses Not on filedocumented in this encounter Additional Health Concerns Assessment Noted Time PHQ-9 Depression Total Score: 0 11/01/19 24 10:45 AM EDT documented as of this encounter Care Teams Air Conditioning Coil Assembler Relationship Specialty Start Date End Date Panda Crooks MD [address] [place] [address] PCP - General Internal Medicine 12/18/13 Julieta KATZA 04/06/24 documented as of this encounter
--- OUTSIDE RECORDS SUMMARY | 2024-05-13 12:54 | XMS_ITS | Encounter Summary ---
Author Organization [employer] Address [address] [place] [address] 7 [place] [address] Care Team Providers Care Manager Loss Prevention Name Role Phone Panda Crooks MD Primary Care Provide r Reason for Visit * Reason Onset Date Comments Med Refill 04/15/2024 Encounter Details Date Type Department Care Team (Late st Contact Info) Description 04/15/2024 Refill [facility] [address] [place] [address] Panda Crooks MD [address] [place] [address] Pain Social History Tobacco Use Types Packs/Day [...] Description 07/22/2024 2:00 PM EDT Office Visit [facility] 230 [place] [address] Panda Crooks MD [address] [place] [address] documented as of this encounter Visit Diagnoses Diagnosis Pain Generalized pain documented in this encounter Additional Health Concerns Assessment Noted Time PHQ-9 Depression Total Score: 0 11/01/19 10:45 AM EDT documented as of this encounter Care Teams Manager Loss Prevention Relationship Specialty Start Date End Date Panda Crooks MD [address] [place] [address] PCP - General Internal Medicine 12/18/13 Julieta VNA 04/06/24 documented as of this encounter
--- OUTSIDE RECORDS SUMMARY | 2024-05-13 12:54 | XMS_ITS | Encounter Summary ---
Author Organization [employer] Address [address] [place] [address] 7 [place] [address] Care Team Providers Care Rn Icu Name Role Phone Panda Crooks MD Primary Care Provide r Reason for Visit * Consultation (Routine) - Pending Review Specialty Diagnoses / Procedures Referred By Contac t Referred To Contact Pharmacy Diagnoses Essential hypertension Forgetfulness Panda Crooks MD [address] [place] [address] Phone: tel: fax: Referral ID Status Reason Start Date Expiration Date Visits Requested Visits Authorized [id number] Pending Review Continuity of Care 04/22/2024 04/22/2025 6 6 Encounter Details Date Type Department Care Team ([facility] st Contact Info) Description 05/06/2024 3:00 PM EST Telemedicine [facility] [address] [place] [address] Kaykay Blake, PharmD [address] [place] [address] Essential hypertension (Primary Dx); Mixed hyperlipidemia; Forgetfulness; 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) Social History Tobacco Use Types Packs/Day Years [...] AM EDT documented as of this encounter Progress Notes * Kaykay Blake PharmD - 05/06/2024 3:00 PM EST Pharmacy Consult Visit Type: MTM Visit Pharmacist: Kaykay Blake PharmD Referral Diagnosis: I10 (ICD-10-CM) - Essential hypertension R68.89 (ICD-10-CM) - Forgetfulness Referral Expiration: 04/22/2025 Referring Provider: Panda Farmer MD Pharmacy Recommendations for Provider: Please consider reducing famotidine from 40 mg once to 20 mg once daily, per clinpharm this is the recommended dosage adjustment in altered kidney function with CrCl 30 to <60 mL/min Background/ Visit Intake Nikita Broussard is a 73 y.o. patient here for a new patient visit. Visit completed over the phone. Nikita gave permission for Roro from [employer] to join today's visit Allergies: is allergic to thiazide-type diuretics. Preferred Pharmacy: [place], [place] - [address] [facility] [address] [facility] 105 [facility] [phone] Medbox: No. Assessment & Plan Adherence: History: Medication Reconciliation: Reports use of the following medications that are not currently active in [facility] medlist: Vitamin B12 1000 mcg by mouth every morning Vitamin D2 46840 mcg by mouth every month OTC medication, vitamin, supplement use: denies Adherence: Medication Organization: Uses medboxes from [facility] Missed doses: reports missing 1 dose/month Read/Write: Yes, in Faroese Goals of therapy: Improve adherence & minimize missed doses (<2 missed doses/week) Chronic Kidney Disease (stage 4 (eGFR 15-29)) Pharmacologic Therapy: none History Patient follows with [facility] (Alfonso Cole MD), last appointment 12/17/2023 Upcoming appointment 06/30/2024 Labs monitoring: Lab Results Component Value Date EGFR 25 12/12/2023 EGFR 54 07/03/2022 EGFR 53 07/03/2022 CREATININE 2.52 (H) 12/12/2023 CREATININE 1.31 07/03/2022 CREATININE 1.33 07/03/2022 CrCl (AdjBW)= 31.0 mL/min on 12/12/2023 Goals of Therapy: Ensure safe & appropriate medication use in the setting of declining renal function. Plan: Pharmacist reviewed current medications for renal dose adjustments Please consider reducing famotidine from 40 mg to 20 mg once daily, per clinpharm this is the recommended dosage adjustment in altered kidney function with CrCl 30 to <60 mL/min Future considerations (CrCl <30 mL/min) Reducing famotidine to 10 mg once daily, per clinpharm this is the recommended dosage adjustment inaltered kidney function with CrCl < 30 mL/min Hypertension: Pharmacologic Therapy: Furosemide 40 mg by mouth once daily Lisinopril 40 mg by mouth once daily Metoprolol succinate 50 mg by mouth once daily Hydralazine 50 mg by mouth twice daily History Roro reports assisting the patient with BP readings twice a month Reports average readings of 120-115 / 70-60 mmHg Unable to provide a BP reading during today's televisit Pertinent negatives include chest pain, head ache, blurry vision. Recent Blood Pressure values: BP Readings from Last 4 Encounters: 04/22/24 129/74 11/01/23 109/63 06/29/22 143/71 02/09/22 129/74 Pulse Readings from Last 4 Encounters: 04/22/24 65 11/01/23 77 06/29/22 75 02/09/22 62 Lab monitoring Lab Results Component Value Date NA 145 12/12/2023 K 4.3 12/12/2023 CREATININE 2.52 (H) 12/12/2023 EGFR 25 12/12/2023 Goals of Therapy per JNC 8: Achieve & maintain BP <140/90mmHg Plan: Pharmacy contacted [facility] (Alfonso Cole MD) to recommend a dose reduction of furosemide to 20 mg once daily. However, according to [place], the patient should already be taking 20 mg once daily Roro reports that furosemide dose was increased to 40 mg once daily, and will contact the engineering research manager to confirm which dose the patient should continue Per clinpharm, concurrent use of furosemide and lisinopril may increase the risk of renal failure. The patient has experienced a significant decrease in eGFR over the past year (54 mL/min/1.73 m2 in 07/2022 and 25 mL/min/1.73 m2 in 12/2023) Hyperlipidemia Pharmacologic Therapy: Aspirin 81 mg by mouth once daily Simvastatin 20 mg by mouth once daily Lab monitoring: Lab Results Component Value Date AST 12 07/03/2022 ALT 5 07/03/2022 The ASCVD Risk score (Isaiah HOOD, et al., 2019) failed to calculate for the following reasons: Cannot find a previous HDL lab Cannot find a previous total cholesterol lab Unable to determine if patient is Non- Goals of Therapy: ACC/AHA 2018 Cholesterol Guidelines: Ensure evidence based and safe use of medications for primary prevention of ASCVD. Plan: Patient due for annual FLP and LFT. Pharmacist ordered via standing order. Patient agreeable to complete 05/13/2024 Forgetfulness Pharmacologic therapy None History [place] was [place] [facility] [place] 04/05/2024 for acute illness Psych evaluation recommended an outpatient follow up for cognition Per PCP office visit note (04/22/2024), cognitive issues suspected to be reflective of acute illness and a referral was sent for neurology Plan Patient is scheduled to follow with neurology (Dr. Tolbert) 06/04/2024 Roro denied knowledge of the upcoming appointment, however reports that they will contact the neurologist to confirm Immunizations History: Immunization History Administered Date(s) Administered Moderna Covid-19 Vaccine 12+ 05/07/2020, 06/04/2020, 03/10/2021 Pneumococcal Conjugate PCV 13 07/20/2015 Pneumococcal Polysaccharide PPSV23 07/25/2016 TD (adult), 2 Lf tetanus toxoid, preservative free, adsorbed 11/17/1999 Tdap 04/20/2015 Zoster, Recombinant 04/26/2021, 06/29/2021 Zoster, live 01/26/2015, 04/26/2021, 06/29/2021 Goals of therapy: Ensure patient is up to date per the CDC Adult Immunization Schedule. Assessment/Plan: Influenza [id number] vaccine: Due COVID-19 vaccine: Due Pneumococcal vaccines (Age >65): Due RSV vaccine (Age 75+): Due Plan: Pharmacy scheduled a vaccine appointment at [facility] pharmacy 05/13/2024 Education: Indication of all recommended vaccines Patient Action Plan At this time patient does not have a need to follow-up with the MTM Program. If further medication therapy management is needed, please consider referring patient back. Thank you for your care in this patient. Continue to adhere to medication Monitor blood pressure as directed Receive all recommended vaccinations Complete pending labs (FLP + LFT) Attend follow up appointments documented in this encounter Plan of Treatment Upcoming Encounters Date Type Department Care Team (Late st Contact Info) Description 07/22/2024 2:00 PM EDT Office Visit [facility] [address] [place] [address] Panda Crooks MD [address] [place] [address] Scheduled Orders Name Type Priority Associated Diagnoses Orde r Schedule Lipid Panel, Standard Lab Routine Mixed hyperlipidemia Expected: 05/13/2024 (Approximate), Expires: 05/01/2025 Hepatic Function Panel Lab Routine Mixed hyperlipidemia Expected: 05/13/2024 (Approximate), Expires: 05/01/2025 documented as of this encounter Visit Diagnoses Diagnosis Essential hypertension- Primary Unspecified essential hypertension Mixed hyperlipidemia Forgetfulness Other general symptoms 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
--- OUTSIDE RECORDS SUMMARY | 2024-05-13 12:54 | XMS_ITS | Clinical Summary ---
Author Organization [facility] Address [address] [place] [address] Care Team Providers Care Geometry Teacher Name Role Phone Panda Muniz MD Primary [...] 0.5 mg by mouth at bed time 1 Active tamsulosin (FLOMAX) 0.4 MG 24 hr capsule Take 0.4 mg by mouth every night 1 Active folic acid (FOLVITE) 1 MG tablet Take 1 mg by mouth 1 (one) time each day 1 Active metoprolol succinate XL (TOPROL XL) 50 MG 24 hr tablet Take 50 mg by mouth 1 (one) time each day Active oxybutynin XL (DITROPAN-XL) 10 MG 24 hr tablet Take 10 mg by mouth 1 (one) time each day Active simvastatin (ZOCOR) 20 MG tablet Take 20 mg by mouth 1 (one) time each day in the evening 1 Active haloperidol (HALDOL) 5 MG tablet 1 Active montelukast (SINGULAIR) 10 MG tablet Take 10 mg by mouth 1 (one) time each day in the evening 1 Active docusate sodium (COLACE) 100 MG capsule Take 100 mg by mouth in the morning and 100 mg in the evening. Active lisinopril 40 MG tablet TAKE 1 TABLET BY MOUTH EVERY DAY 30 tablet 3 Active hydrALAZINE 50 MG tablet Take 1 tablet (50 mg total) by mouth in the morning and 1 tablet (50 mg total) before bedtime. 180 tablet 3 4 Active ergocalciferol 1.25 MG (78067 UT) capsule TAKE 1 CAPSULE (50,000 UNITS TOTAL) BY MOUTH EVERY 30 (THIRTY) DAYS 1 capsule 10 4 Active furosemide (LASIX) 20 MG tabletIndicatio ns:Stage 3b chronic kidney disease (HCC) Take 1 tablet (20 mg total) by mouth 1 (one) time each day Take 1 table (10 mg) by mouth daily 90 tablet 3 5 05/08/19 26 Active furosemide (LASIX) 20 MG tabletIndicatio ns:Stage 3b chronic kidney disease (HCC) Take 2 tablets (40 mg total) by mouth 1 (one) time each day 60 tablet 11 4 05/08/19 25 Discontinu ed(Reorder (does not appear on AVS)) Active Problems Problem Noted Date Diagnosed Date [...] indicative of this, discuss with pt and child care specialist the need for better hygene, pt only bathing once or twice a week. residential tech promised to help with bathing Also recommended [...] hematuria, care managed by [facility]. Last seen July 2021 Recommended 1 year [...] Encounters Date Type Department Care Team Description 05/07/2024 Refill [facility] [address] [place] [phone] Anh Montoya [place] Stage 3b chronic kidney disease (HCC) 05/06/2024 Telephone [facility] [address] [phone] Anh Montoya [place] from Last 3 Months Immunizations Name Administration [...] Office Visit [facility] [address] [place] [address] Alfonso Cole MD [address] [facility] [address] [place] [address] Health Maintenance Due Date Last Done Comments Colorectal Cancer Screening: Annual FOBT 1997 Colorectal Cancer Screening: Colonoscopy 1997 Colorectal Cancer Screening: Sigmoidoscopy 1997 Influenza Vaccine (#1) 2023 Pneumococcal Vaccine: 65+ Years Completed 07/25/2016, 07/20/2015 Hepatitis B Vaccine Aged Out No longe r eligible based on patient's age to complete this topic Insurance [facility] MEDICARE [facility] MEDICARE Care Teams Geometry Teacher Relationship Specialty Start Date End Date Panda Muniz MD PCP - General 03/15/20
--- OUTSIDE RECORDS SUMMARY | 2024-05-13 12:54 | XMS_ITS | Encounter Summary ---
Author Organization [employer] Address [address] [place] [address] 7 [place] [address] Care Team Providers Care Planisher Name Role Phone Panda Crooks MD Primary Care Provide r Reason for Visit * Reason Onset Date Comments Hospital Follow-up 04/07/2024 Encounter Details Date Type Department Care Team ([facility] st Contact Info) Description 04/07/2024 Telephone [facility] [address] [place], [place] [phone] Panda Crooks MD [address] [place] [address] Hospital Follow-up Social History Tobacco Use Types Packs/Day Years [...] encounter Miscellaneous Notes * Telephone Encounter - Neo Weaver - 04/07/2024 3:58 PM EST Tc from pt requesting a HDF appt. Hospital: [facility] Date of admission: 04/01/24 Discharge date: 04/05/24 Diagnosed: Flu and UTI *Send message to [place] Clinical Care Coordinators Contact [employer] Rep at [phone] documented in this encounter Plan of Treatment Upcoming Encounters Date Type Department Care Team (Late st Contact Info) Description 07/22/2024 2:00 PM EDT Office Visit [facility] [address] [place] [address] Panda rCooks MD [address] [place] [address] documented as of this encounter Visit Diagnoses Not on filedocumented in this encounter Additional Health Concerns Assessment Noted Time PHQ-9 Depression Total Score: 0 11/01/19 24 10:45 AM EDT documented as of this encounter Care Teams Planisher Relationship Specialty Start Date End Date Panda Crooks MD [address] [place] [address] PCP - General Internal Medicine 12/18/13 Julieta TATE 04/06/24 documented as of this encounter
--- OUTSIDE RECORDS SUMMARY | 2024-05-13 12:54 | XMS_ITS | Encounter Summary ---
Author Organization [employer] Address [address] [place] [address] [address], [place] [address] Care Team Providers Care Software Packaging Engineer Name Role Phone Panda Crooks MD Primary Care Provide r Reason for Referral * Consultation (Routine) - Authorized Specialty Diagnoses / Procedures Referred By Abdirahman childs Referred To Contact Neurology Diagnoses Forgetfulness Panda Crooks MD [address] [place] [address] Phone: tel: fax: Maria Del Carmen Tolbert MD [address] [place] [id number] Phone: tel: fax: Referral ID Status Reason Start Date Expiration Date Visits Requested Visits Authorized [id number] Authorized Specialty Services Required 04/22/2024 04/22/2025 1 1 * Consultation (Routine) - Pending Review Specialty Diagnoses / Procedures Referred By Contac t Referred To Contact Pharmacy Diagnoses Essential hypertension Forgetfulness Panda Crooks MD [address] [place] [address] Phone: tel: fax: Referral ID Status Reason Start Date Expiration Date Visits Requested Visits Authorized [id number] Pending Review Continuity of Care 04/22/2024 04/22/2025 6 6 Reason for Visit * Reason Comments Hospital Follow-up [facility] 04/01/2024 - 03/2024Dx:Schizophrenia, Cognitive impairment( PVP completed) Pt wants to go over his medications Encounter Details Date Type Department Care Team (Latest Contact Info) Description 04/22/2024 9:30 AM EST Office Visit [facility]INE [address] [place] [address] Panda Crooks MD [address] [place], [place] [phone] Hospital discharge follow-up (Primary Dx); Essential hypertension; Forgetfulness; 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); Paranoid schizophrenia (CMS/HCC); Class 1 obesity due to excess calories with serious comorbidity and body mass index (BMI) of 31.0 to 31.9 in adult; Dietary counseling; Exercise counseling; Mixed hyperlipidemia Social History Tobacco Use Types Packs/Day Years [...] AM EDT documented as of this encounter Last Filed Vital Signs Vital Sign Reading Time Taken Comments Blood Pressure 129/74 04/22/2024 9:36 AM EST Pulse 65 04/22/2024 9:36 AM EST Temperature 36.2 ??C (97.1 ??F) 04/22/2024 9:36 AM ES T Respiratory Rate 20 04/22/2024 9:36 AM EST Oxygen Saturation 96% 04/22/2024 9:36 AM EST Inhaled Oxygen Concentration - - Weight 103 kg (226 lb 3.2 oz) 04/22/2024 9:36 AM EST Height 180.3 cm (5' 11 ) 04/22/2024 9:36 AM EST Body Mass Index 31.55 04/22/2024 9:36 AM EST documented in this encounter Progress Notes * Panda Farmer MD - 04/22/2024 9:30 AM EST SUBJECTIVE Nikita Broussard is a 73 y.o. male who presents for Hospital Follow-up ([facility] 04/01/2024 - 04/05/2024/Dx:Schizophrenia, Cognitive impairment/( PVP completed) /Pt wants to go over his medications ). Pt is here for a HDF Review of Systems Constitutional: Negative for fever. HENT: Negative for sore throat. Respiratory: Negative for cough and shortness of breath. Cardiovascular: Negative for chest pain. Gastrointestinal: Negative for abdominal pain. Neurological: Negative for headaches. Allergies Allergen Reactions Thiazide-Type Diuretics Other reaction(s): unspecified: hypotension OBJECTIVE Vitals: 04/22/24 0936 BP: 129/74 BP Location: Left arm Patient Position: Sitting BP Cuff Size: Adult Pulse: 65 Resp: 20 Temp: 97.1 ??F (36.2 ??C) TempSrc: Temporal SpO2: 96% Weight: 226 lb 3.2 oz (103 kg) Height: 5' 11 (1.803 m) Physical Exam Vitals reviewed. Constitutional: Appearance: Normal appearance. HENT: Head: Normocephalic and atraumatic. Right Ear: External ear normal. Left Ear: External ear normal. Nose: Nose normal. Mouth/Throat: Mouth: Mucous membranes are moist. Eyes: Conjunctiva/sclera: Conjunctivae normal. Cardiovascular: Rate and Rhythm: Normal rate and regular rhythm. Pulmonary: Effort: Pulmonary effort is normal. Breath sounds: Normal breath sounds. No wheezing. Skin: General: Skin is warm. Neurological: Mental Status: He is alert. Mental status is at baseline. Assessment/Plan Problem List Items Addressed This Visit Hospital discharge follow-up - Primary Pt here for a HDF He was admitted to [facility] from 04/01-04/05/2024 Patient presented with cough and increase in weakness. Treated with IV steroids and bronchodilatorsfor asthma exacerbation secondary to influenza A, also found to have UTI and was initiated on Ceftriaxone. During his hospitalization he was valuated by PT who recommended STR, however patient refused. Psych was consulted for further evaluation of mental health status, and recommended further cognit grant evaluation outpatient. Patient discharged to home with services, and to complete steroid and antibiotic course. Pt finished his medications and feels back to baseline Essential hypertension Patient here for a f/u blood pressure controlled on medications Plan: continue Lisinopril 40mg, 1 tablet daily, Metoprolol 50mg, 1 tablet daily. Hydralazine 50 mg po BID Encouraged patient to follow low salt diet. Relevant Orders Referral to Pharmacy MTM Forgetfulness Patient recently admitted to Hospital due to acute asthma exacerbation. While in the Hospital he was evaluated by psych who recommended outpatient follow up on his cognition MME today: 23 ( pt does not know how to add or substract ) I suspect his cognitive iusses while in the Hospital were mostly reflective of acute illness, hypoxemia and UIT Plan: Neurology referral Relevant Orders Referral to Pharmacy MTM Referral to Neurology Vitamin B12/Folate, Serum Panel Syphilis Screen CKD stage 4 secondary to hypertension ([facility]) Pt seeing Dr Cole Last seen 12/2023 Paranoid schizophrenia ([facility]) Patient reports he is doing well. Denies SI and HI. Care managed by Psych provider Jerrod Burgos with [facility]. Meds: Cogentin 0.5 mg PM Haldol 10 mg PM Haldol 5mg PM Olanzapine 5 mg po daily Obesity Patient has been counseled and educated about diet and exercise. Personal goal of weight loss discussedPatient has comorbidity of: HTN Hyperlipidemia Relevant Medications simvastatin (Zocor) 20 MG tablet Other Visit Diagnoses Dietary counseling Exercise counseling documented in this encounter Miscellaneous Notes * Assessment & Plan Note - Panda Farmer MD - 04/22/2024 9:40 AM EST Associated Problem(s): Obesity Patient has been counseled and educated about diet and exercise. Personal goal of weight loss discussedPatient has comorbidity of: HTN * Assessment & Plan Note - Panda Farmer MD - 04/22/2024 9:39 AM EST Associated Problem(s): Paranoid schizophrenia (CMS/HCC) Patient reports he is doing well. Denies SI and HI. Care managed by Psych provider Jerrod Burgos with [facility]. 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 While in the Hospital he was evaluated by psych who recommended outpatient follow up on his cognition MME today: 23 ( pt does not know how to add or substract ) I suspect his cognitive iusses while in the Hospital were mostly reflective of acute illness, hypoxemia and UIT Plan: Neurology referral * Assessment & Plan Note - Panda Farmer MD - 04/22/2024 9:28 AM EST Associated Problem(s): Essential hypertension Patient here for a f/u blood pressure controlled on medications Plan: continue Lisinopril 40mg, 1 tablet daily, Metoprolol 50mg, 1 tablet daily. Hydralazine 50 mg po BID Encouraged patient to follow low salt diet. * Assessment & Plan Note - Panda Farmer MD - 04/22/2024 9:27 AM EST Associated Problem(s): Hospital discharge follow-up Pt here for a HDF He was admitted to [facility] from 04/01-04/05/2024 Patient presented with cough and increase in weakness. Treated with IV steroids and bronchodilatorsfor asthma exacerbation secondary to influenza A, also found to have UTI and was initiated on Ceftriaxone. During his hospitalization he was valuated by PT who recommended STR, however patient refused. Psych was consulted for further evaluation of mental health status, and recommended further cognit grant evaluation outpatient. Patient discharged to home with services, and to complete steroid and antibiotic course. Pt finished his medications and feels back to baseline documented in this encounter Plan of Treatment Upcoming Encounters Date Type Department Care Team (Late st Contact Info) Description 07/22/2024 2:00 PM EDT Office Visit [facility] MEDICINE [address] [place] [address] Panda Crooks MD [address] [place] [address] Pending Results Name Type Priority Associated Diagnoses Date /Time Vitamin B12/Folate, Serum Panel Lab Routine Forgetfulness 05/13/2024 10:45 AM EDT Scheduled Referrals Name Type Priority Associated Diagnoses Orde r Schedule Referral to Pharmacy MTM Outpatient Referral Routine Essential hypertension Forgetfulness Ordered: 04/22/2024 Referral to Neurology Outpatient Referral Routine Forgetfulness Expected: 04/22/2024 (Approximate), Expires: 04/22/2025 documented as of this encounter Procedures Procedure Name Priority Date/Time Associated Diagnosis Comments SYPHILIS SCREEN Routine 05/13/2024 10:45 AM EDT Forgetfulness VITAMIN B12/FOLATE, SERUM PANEL Routine 05/13/2024 10:45 AM EDT Forgetfulness documented in this encounter Results * Syphilis Screen (05/13/2024 10:45 AM EDT) Syphilis Screen Nonreactive Nonreactive [facility] Blood Venous blood specimen / Unknown 05/13/2024 10:45 AM EDT 05/13/2024 11:29 AM EDT us Panda Farmer MD LAB BLOOD ORDERABLES Final Result [facility] [address] [place] [address] [phone] documented in this encounter Visit Diagnoses Diagnosis Hospital discharge follow-up- Primary Other follow-up examination Essential hypertension Unspecified essential hypertension Forgetfulness Other general symptoms 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) Paranoid schizophrenia (CMS/HCC) Paranoid schizophrenia, unspecified condition Class 1 obesity due to excess calories with serious comorbidity and body mass index (BMI) of 31.0 to 31.9 in adult Dietary counseling Dietary surveillance and counseling Exercise counseling Mixed hyperlipidemia documented in this encounter Additional Health Concerns Assessment Noted Time PHQ-9 Depression Total Score: 0 11/01/19 24 10:45 AM EDT documented as of this encounter Care Teams Software Packaging Engineer Relationship Specialty Start Date End Date Panda rCooks MD [address] [facility] [place] [address] PCP - General Internal Medicine 12/18/13 Julieta Ashley 04/06/24 documented as of this encounter
--- OUTSIDE RECORDS SUMMARY | 2024-05-13 12:54 | XMS_ITS | Encounter Summary ---
Author Organization [facility] Address [address] [facility] [address] [place] [address] Phone Care Team Providers Care Control Chemist Name Role Phone Panda Muniz MD Primary Care Provider Unav ailable Reason for Visit * Reason Comments Med Refill Encounter Details Date Type Department Care Team (Late Contact Info) Description 03/28/2022 Refill [facility] [address] [facility] [address] [place] [address] Sami Morales MD Social History [...] Visit [facility] [address] [place] [address] [phone] Alfonso Cole MD [address] [facility] [address] [place] [phone] documented as of this encounter Visit Diagnoses Not on filedocumented in this encounter Care Teams Control Chemist Relationship Specialty Start Date End Date Panda Mnuiz MD PCP - General 03/15/20 documented as of this encounter
--- OUTSIDE RECORDS SUMMARY | 2024-05-13 12:54 | XMS_ITS | Clinical Summary ---
Author Organization [employer] Address [address] [place] [address] [address] [place] [address] Care Team Providers Care Belt And Link Assembly Supervisor Name Role Phone Panda Crooks MD Primary Care Provide r Allergies Active Allergy Reactions Criticality Noted Date Comments Thiazide-Type Diuretics 04/06/2010 Other reaction(s): unspecified: hypotension Medications * This document contains information received from the source organization and may not represent a complete record from that organization. haloperidol (Haldol) 5 MG tablet Take 1 tablet by mouth. Active haloperidol (Haldol) 10 MG tablet Take 1 tablet by mouth. Active tamsulosin (Flomax) 0.4 MG 24 hr capsule Take 1 capsule by mouth at bed time. Active benztropine (Cogentin) 0.5 MG tablet Take 1 tablet by mouth. Active furosemide (Lasix) 20 MG tablet Take 40 mg by mouth. 06/06/19 23 Active famotidine (Pepcid) 40 MG tablet [...] day. 90 tablet 1 01/22/20 24 Active potassium chloride CR (Klor-Con) 10 MEQ ER tablet TAKE 1 TABLET (10 MEQ) BY MOUTH ONCE PER DAY. DO NOT CRUSH OR CHEW. 30 tablet 03/25/19 25 Active albuterol 108 (90 Base) MCG/ACT inhaler Inhale 2 puffs every 4 (four) hours if needed for wheezing or shortness of breath. Maximum 8 puffs per day 18 g 3 04/01/19 25 2025 Active acetaminophen (FT Pain Reliever Ex Str Adult) 500 MG tabletIndications :Pain TAKE 1 TABLET BY MOUTH EVERY 6 HOURS IF NEEDED FOR MODERATE PAIN 30 tablet 04/15/19 25 Active hydrALAZINE (Apresoline) 50 MG tablet Take 1 tablet by mouth 2 times daily. 04/14/19 25 Active OLANZapine (ZyPREXA) 5 MG tablet Take 1 tablet by mouth Once per day. 04/01/19 25 Active oxybutynin XL (Ditropan-XL) 10 MG 24 hr tablet Take 1 tablet by mouth Once per day. 04/01/19 25 Active simvastatin (Zocor) 20 MG tabletIndications :Mixed hyperlipidemia Take 1 tablet (20 mg) by mouth at bedtime. 30 tablet 3 04/22/19 25 Active cyanocobalamin (Vitamin B-12) 1000 MCG tablet Take 1,000 mcg by mouth Once per day. Active ergocalciferol (Vitamin D-2) 1.25 MG (36929 UT) capsule Take 1.25 mg by mouth every 30 (thirty) days. Active simvastatin (Zocor) 20 MG tabletIndications :Mixed hyperlipidemia TAKE 1 TABLET (20 MG) BY MOUTH AT BEDTIME. 30 tablet 02/07/20 24 2024 Discontinued(R eorder (will not trigger notification to Pharmacy)) FT Pain Reliever Ex Str Adult 500 MG tabletIndications :Pain TAKE 1 TABLET BY MOUTH EVERY 6 HOURS IF NEEDED FOR MODERATE PAIN 30 tablet 03/18/19 25 2024 Discontinued(R eorder (will not trigger notification to Pharmacy)) Active Problems Problem Noted Date Diagnosed Date Hospital discharge follow-up 04/22/2024 Assessment & Plan (04/22/2024 9:53 AM EST): Pt here for a HDF He was admitted to [facility] from 04/01-04/05/2024 Patient presented with cough and increase in weakness. Treated with IV steroids and bronchodilators for asthma exacerbation secondary to influenza A, also found to have UTI and was initiated on Ceftriaxone. During his hospitalization he was valuated by PT who recommended STR, however patient refused. Psych was consulted for further evaluation of mental health status, and recommended further cognitive evaluation outpatient. Patient discharged to home with services, and to complete steroid and antibiotic course. Pt finished his medications and feels back to baseline Forgetfulness 04/22/2024 Assessment & Plan (04/22/2024 9:52 AM EST): Patient recently admitted to Hospital due to acute asthma exacerbation. While in the Hospital he was evaluated by psych who recommended outpatient follow up on his cognition MME today: 23 ( pt does not know how to add or substract ) I suspect his cognitive iusses while in the Hospital were mostly reflective of acute illness, hypoxemia and UIT Plan: Neurology referral CKD stage 4 secondary to hypertension 11/01/2023 Assessment & Plan (04/22/2024 9:38 AM EST): Pt seeing Dr Cole Last seen 12/2023 Assessment & Plan (11/01/2023 10:43 AM EDT): [...] indicative of this, discuss with pt and before and after school daycare worker the need for better hygene, pt only bathing once or twice a week. rental boats caretaker promised to help with bathing Also recommended to keep area dry and use Clotrimazole BID and to continue for 1 more week after completion Obesity 05/31/2021 Assessment & Plan (04/22/2024 9:40 AM EST): Patient has been counseled and educated about diet and exercise. Personal goal of weight loss discussedPatient has comorbidity of: HTN Tobacco dependence syndrome 05/31/2021 Renal osteodystrophy 05/31/2021 Benign prostatic hyperplasia 04/26/2021 Assessment & Plan (11/01/2023 10:47 AM EDT): Patient here for a f/u has a history of BPH and hematuria, care managed by [facility]. Last seen 01/23/2023 Recommended 1 year follow up. Patient will continue Oxybutynin 10mg, 2 tablets daily and Flomax 0.4mg, 1 tablet daily as management of BPH. Patient will follow-up with Urology Assessment & Plan (02/09/2022 1:12 PM EST): Patient here for a f/u has a history of BPH and hematuria, care managed by [facility]. Last seen July 2021 Recommended 1 year follow up. Patient will continue Oxybutynin 10mg, 2 tablets daily and Flomax 0.4mg, 1 tablet daily as management of BPH. Patient will follow-up with Urology Proteinuria 10/05/2020 Macrocytic anemia 02/15/2017 Assessment & Plan (11/01/2023 10:37 AM EDT): Under the care of Hematology Last seen 10/08/2023 Started on Procrit Paranoid schizophrenia 10/26/2016 Assessment & Plan (04/22/2024 9:39 AM EST): Patient reports he is doing well. Denies SI and HI. Care managed by Psych provider Jerrod Burgos with [facility]. Meds: Cogentin 0.5 mg PM Haldol 10 mg PM Haldol 5mg PM Olanzapine 5 mg po daily Assessment & Plan (11/01/2023 10:57 AM EDT): [...] Psych provider Jerrod Burgos with [facility]. Unsure what medications patient is taking for condition. Haldol is listed in medication list with two different dosages. Patient will follow-up in 3 months. Essential hypertension 01/26/2015 Assessment & Plan (04/22/2024 9:28 AM EST): Patient here for a f/u blood pressure controlled on medications Plan: continue Lisinopril 40mg, 1 tablet daily, Metoprolol 50mg, 1 tablet daily. Hydralazine 50 mg po BID Encouraged patient to follow low salt diet. Assessment & Plan (11/01/2023 11:00 AM EDT): [...] continue to monitor. Patient will follow-up with paste plant supervisor. Encounters * This document contains information received from the source organization and may not represent a complete record from that organization. Date Type Department Care Team Description 05/13/2024 Orders Only [facility] [address] [place] [address] Panda Crooks MD 05/13/2024 Refill [facility] [address] [place] [address] Panda Crooks MD 05/06/2024 3:00 PM EST Telemedicine [facility] [address] [place] [address] Kaykay Blake, DishaD Essential hypertension (Primary Dx); Mixed hyperlipidemia; Forgetfulness; 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) 04/22/2024 9:30 AM EST Office Visit [facility] [address] [place] [address] Panda Crooks MD Hospital discharge follow-up (Primary Dx); Essential hypertension; Forgetfulness; 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); Paranoid schizophrenia (CMS/HCC); Class 1 obesity due to excess calories with serious comorbidity and body mass index (BMI) of 31.0 to 31.9 in adult; Dietary counseling; Exercise counseling; Mixed hyperlipidemia 04/22/2024 Travel 04/15/2024 Refill [facility] [address] [place], [place] [phone] Panda Crooks MD Pain 04/10/2024 Telephone [facility] [address] [place] [address] Panda Crooks MD Chart Prep 04/07/2024 Patient Outreach [facility] [address] [place] [address] Panda Crooks MD Transition Of Care (Tcm) (HDF scheduled. ) 04/07/2024 Telephone [facility] [address] [place] [address] Panda Crooks MD Hospital Follow-up 04/07/2024 Telephone [facility] [address] [place] [address] Panda Crooks MD Verbal Orders 04/01/2024 Orders Only [facility] External Provider, [facility] 04/01/2024 Telephone [facility] [address] [place] [address] Panda Crooks MD Nurse Triage 04/01/2024 Refill [facility] [address] [place] [address] Panda Crooks MD 03/20/2024 Refill [facility] [address] [place] [address] Hyun Barrientos MD 03/17/2024 Refill [facility] [address] [place] [address] Panda Crooks MD Pain 02/18/2024 Refill [facility] [address] [place] [address] Panda Crooks MD Pain from Last 3 Months Immunizations Name Administration Dates Next Due Moderna Covid-19 Vaccine 12+ 03/10/2021,06/05/19 21,05/07/2020 Pneumococcal Conjugate PCV 13 07/20/2015 Pneumococcal Conjugate PCV 20 05/13/2024 Pneumococcal Polysaccharide PPSV23 07/25/2016 RSV Bivalent 05/13/2024 TD (adult), 2 Lf tetanus tox oid, [...] Mass Index 31.55 04/22/2024 9:36 AM EST Plan of Treatment Upcoming Encounters Date Type Department Care Team (Late st Contact Info) Description 07/22/2024 2:00 PM EDT Office Visit [facility] [address] [place] [address] Panda Crooks MD [address] [place] [address] Health Maintenance Due Date Last Done Comments CT Colonography 1950 FIT DNA/Cologuard 1950 FIT 1950 FOBT 1950 Sigmoidoscopy 1950 Hepatitis C Screening 1966 COVID-19 Vaccine ( season) 2023 03/10/2021, 06/04/2020, 05/07/2020 Influenza Vaccine (#1) 2023 Depression Screening 10/31/2024 11/01/2023, 11/01/19 24 Tobacco Screening 10/31/2024 11/01/2023 Colonoscopy 12/18/2024 12/18/2014, 12/18/2014 Colorectal Cancer Screening 12/18/2024 DTaP/Tdap/Td Vaccines (2 - Td or Tdap) 04/20/2025 04/20/2015, 11/17/1999 Alcohol/Substance Use Screening 04/22/2025 04/22/2024 SDOH Screening 04/22/2025 04/22/2024 Lipid Panel 01/20/2026 05/13/2024, 01/20/2021 Zoster Vaccines Completed 06/29/2021, 06/04, 04/26/2021, Additional history exists Pneumococcal Vaccine: 50+ Years Completed 05/13/2024, 07/25/2016, 07/20/2015 RSV Patients and Patients Aged 60 years or older Completed 05/13/2024 HIB Vaccines Aged Out No longer eligi ble based on patient's age to complete this topic HPV Vaccines Aged Out No longer eligi ble based on patient's age to complete this topic Hepatitis A Vaccines Aged Out No long er eligible [...] Procedure Name Priority Date/Time Associated Diagnosis Comments HEPATIC FUNCTION PANEL Routine 10:45 AM EDT SYPHILIS SCREEN Routine 05/13/2024 10:45 AM EDT Forgetfulness VITAMIN B12/FOLATE, SERUM PANEL Routine 05/13/2024 10:45 AM EDT Forgetfulness COMPREHENSIVE METABOLIC PANEL Routine 05/13/2024 10:45 AM EDT Chronic kidney disease (CKD), stage II (mild) LIPID PANEL, STANDARD Routine 05/13/2024 10:45 AM EDT Chronic kidney disease (CKD), stage II (mild) CT HEAD WO CONTRAST Routine 04/04/2024 1 :53 PM EST LACTIC ACID Routine 04/01/2024 4:40 PM EST URINALYSIS, COMPLETE, WITH REFLEX TO CULTURE Routine 04/01/2024 1:11 PM EST HM COLONOSCOPY Routine 12/18/2014 from Last 3 Months or Most Recently Relevant to Health Maintenance Results * Syphilis Screen (05/13/2024 10:45 AM EDT) Syphilis Screen Nonreactive Nonreactive [facility] Blood Venous blood specimen / Unknown 05/13/2024 10:45 AM EDT 05/13/2024 11:29 AM EDT Panda Farmer MD LAB BLOOD ORDERABLES Final Result Performing Organization Address City/[facility]/ZIP Co de Phone Number [facility] [address] [place] [phone] * Hepatic Function Panel (05/13/2024 10:45 AM EDT) Bilirubin, Direct 0.2 0.0 - 0.5 mg/dL [facility] 05/13/2024 10:4 5 AM EDT 05/13/2024 11:29 AM EDT Panda Farmer MD LAB BLOOD ORDERABLES Final Result Performing Organization Address City/[facility]/ZIP Co de Phone Number [facility] [address] [place] [phone] * (ABNORMAL) Lipid Panel, Standard (05/13/2024 10:45 AM EDT) Triglycerides 100 <150 mg/dL [facility] Comment:Desirable Triglyceri de: less than 150 mg/dLBorderline High Triglyceride 150-199 mg/dLHigh Triglyceride: 200-499 mg/dLVery High Triglyceride: greater than or equal to 5OO mg/dL Cholesterol 142 <200 mg/dL [facility] Comment:Desirable Cholestero l: less than 200 mg/dLBorderline High Cholesterol: 200-239 mg/dLHigh Cholesterol: greater than 239 mg/dL LDL Cholesterol Calculated 86 <100 mg/dL [facility] Comment:Desirable LDL: less than 100 mg/dLNear Optimal/Above Optimal LDL: 110- 129 mg/dLBorderline High LDL: 130-159 mg/dLHigh LDL: 160-189 mg/dLVery High LDL: greater than or equal to 190 mg/dL HDL Cholesterol 36(L) >40 mg/dL [facility] Comment:Desirable HDL: great er than 40 mg/dL Note: This HDL assay may give artificially low results in patients with liver disease. Blood Venous blood specimen / Unknown 05/13/2024 10:45 AM EDT 05/13/2024 11:29 AM EDT us Panda Farmer MD LAB BLOOD ORDERABLES Final Result [facility] [address] [place] [phone] * (ABNORMAL) Comprehensive Metabolic Panel (05/13/2024 10:45 AM EDT) Sodium 145 135 - 145 mmol/L [facility] Potassium 4.0 3.3 - 5.1 mmol/L [facility] Chloride 109(H) 96 - 108 mmol/L [facility] Carbon Dioxide 29 22 - 29 mmol/L [facility] Anion Gap 11(L) 12 - 20 [facility] Urea Nitrogen (BUN) 28(H) 9 - 16 mg/dL [facility] Creatinine, Serum 2.16(H) 0.5 - 1.4 mg/dL [facility] Estimated Glomerular Filt Rate 30 [facility] Comment:Chronic Kidney Disea se: Estimated GFR < 60 mL/min/[id number] Kidney Disease: Estimated GFR < 15 mL/min/1.73m2 Glucose 120(H) 60 - 115 mg/dL [facility] Calcium 9.1 8.4 - 10.2 mg/dL [facility] Bilirubin, Total 0.2 0.0 - 1.0 mg/dL [facility] Aspartate Amino Transferase 20 5 - 37 U/L [facility] Alanine Aminotransferase 9 0 - 40 U/L [facility] Total Protein 7.6 6.5 - 8.0 g/dL [facility] Albumin Level 3.8 3.5 - 5.0 g/dL [facility] Alkaline Phosphatase 89 39 - 117 U/L [facility] Blood Venous blood specimen / Unknown 05/13/2024 10:45 AM EDT 05/13/2024 11:29 AM EDT us Panda Farmer MD LAB BLOOD ORDERABLES Final Result [facility] [address] [place] [address] [phone] * CT Head w/o Contrast (04/04/2024 1:53 PM EST) Anatomical Region Laterality Modality Head, Neck Computed Tomogra phy 04/04/2024 1:53 PM EST Narrative 04/04/2024 2:20 PM EST ? [facility] ?[address] ?[place] [address] ? CT Scan Report ? Signed ? Patient: Nikita Broussard ?MR#: [id number] ?? 9 ? : 1950 ?Acct:[id number] ? Age/Sex: 73 / M ?ADM Date: 04/01/24 ? Loc: HO.S3 ?377-1 ? Attending Dr: Ronen Giordano MD ? Ordering Physician: Ronen Giordano MD ?? Date of Service: 04/04/24 ?? Procedure(s): CT head/brain wo IV con ?? Accession Number(s): [id number] ? cc: Panda Pablo MD; Ronen Giordano MD ? Report Number: ?? [id number]: Total DLP = ??978.00 mGy-cm ?? EXAMINATION: ?? CT HEAD WITHOUT CONTRAST ? CLINICAL INFORMATION: ?? confusion ? COMPARISON: ?? None available. ? TECHNIQUE: ?? Contiguous axial imaging was performed from the skull base to vertex ?? without intravenous administration of contrast. ? This CT examination was performed using dose optimization techniques as ?? appropriate, variously including the following: ?? *Automated exposure control ?? *Adjustment of mA and/or kV according to patient size (this includes ?? techniques or standardized protocols for targeted exams where dose is ?? matched to indication/reason for exam; i.e. extremities or head) ?? *Use of iterative reconstruction technique ? DLP: ?? 978 mGy-cm ? FINDINGS: ?? Limited by patient's motion artifact. ?? Bilateral multifocal patchy and confluent deep periventricular white ?? matter involving centrum semiovale and lepe radiata. ?? Bilateral symmetric calcifications in the putamen. ?? No acute intracranial hemorrhage, mass effect, midline shift, ?? hydrocephalus or herniation. ?? Prominence of the extra-axial CSF spaces cerebral sulci and ventricles. ?? Posterior cranial fossa contents demonstrated no intracranial ?? hemorrhage or gross mass effect. ?? Sellar/suprasellar region demonstrated CSF intrasellar prominence. ?? Tympanic cavities and mastoid cells are aerated. ?? Status post resection right parotid gland. ?? There is questionable exophthalmos, bilaterally. The extraocular ?? muscles are normal. ?? Calcified plaques in the cavernous segments both ICA. ? CT/CT head/brain wo IV con ?? IMPRESSION: ?? Small vessel occlusive disease. Superimposed acute ?? stroke/nonhemorrhagic ischemia cannot be excluded. ?? Secretions in the basal ganglia which could be related to ?? hyperparathyroidism versus pseudohypoparathyroidism. ? Electronically signed by: ??Mike Linton MD ??04/04/2024 02:17 PM ?? EST ? Dictated By: ?Mike Gutierrez MD ? Signed By: ?<Electronically signed by Mike Freitas MD in OV> ? 04/04/24 1417 ? DD/ 1353 ? TD/TT: 04/04/24 1402 ? Ultrasound Supervisor: ? Procedure Note Marivel Kaba - 04/04/[address] [address] [address] Scan Report Signed Patient: Irving Broussard#: [id number] 9 : 9Acct:[id number] Age/Sex: 73 / MADM Date: 04/01/24 Loc: HO.S3 377-[address]: Ronen Giordano MD Ordering Physician: Ronen Giordano MD Date of Service: 04/04/24 Procedure(s): CT head/brain wo IV con Accession Number(s): [id number] cc: Panda Pablo MD; Ronen Giordano MD Report Number: [id number]: Total DLP = 978.00 mGy-cm EXAMINATION: CT HEAD WITHOUT CONTRAST CLINICAL INFORMATION: confusion COMPARISON: None available. TECHNIQUE: Contiguous axial imaging was performed from the skull base to vertex without intravenous administration of contrast. This CT examination was performed using dose optimization techniques as appropriate, variously including the following: *Automated exposure control *Adjustment of mA and/or kV according to patient size (this includes techniques or standardized protocols for targeted exams where dose is matched to indication/reason for exam; i.e. extremities or head) *Use of iterative reconstruction technique DLP: 978 mGy-cm FINDINGS: Limited by patient's motion artifact. Bilateral multifocal patchy and confluent deep periventricular white matter involving centrum semiovale and lepe radiata. Bilateral symmetric calcifications in the putamen. No acute intracranial hemorrhage, mass effect, midline shift, hydrocephalus or herniation. Prominence of the extra-axial CSF spaces cerebral sulci and ventricles. Posterior cranial fossa contents demonstrated no intracranial hemorrhage or gross mass effect. Sellar/suprasellar region demonstrated CSF intrasellar prominence. Tympanic cavities and mastoid cells are aerated. Status post resection right parotid gland. There is questionable exophthalmos, bilaterally. The extraocular muscles are normal. Calcified plaques in the cavernous segments both ICA. CT/CT head/brain wo IV con IMPRESSION: Small vessel occlusive disease. Superimposed acute stroke/nonhemorrhagic ischemia cannot be excluded. Secretions in the basal ganglia which could be related to hyperparathyroidism versus pseudohypoparathyroidism. Electronically signed by: Mike Linton MD 04/04/2024 02:17 PM EST Dictated By: Mike Gutierrez MD Signed By: <Electronically signed by Mike Freitas MDin OV> 04/04/24 1417 DD/ 1353 TD/TT: 04/04/24 1402 Ultrasound Supervisor: [facility] External Provider IMG CT PROCEDURES Final Result * Lactic Acid (04/01/2024 4:40 PM EST) Lactic Acid 1.2 0.5 - 2.0 mmol/L [facility] 04/01/2024 4:40 PM EST 04/01/2024 4:43 PM EST Generic External Data Provider LAB BLOOD ORDERAB LES Final Result Performing Organization Address [facility]/ZIP Co de Phone Number [facility] [address] [place] [phone] * (ABNORMAL) Urinalysis, Complete, with Reflex to Culture (04/01/2024 1:11 PM EST) Color Urine Yellow [facility] Appearance Urine Cloudy [facility] PH 5.5 5.0 - 9.0 [facility] Glucose Urine UA Negative Negative mg/dL [facility] Urine Blood Trace(A) Negative [facility] Specific [place] - Urine 1.015 1.005 - 1.025 [facility] Urine Protein 100 (2+)(A) Neg-Trace mg/dL [facility] Urine Ketones Negative Negative mg/dL [facility] Nitrite Urine Positive(A) Negative [facility] Leukocyte Esterase Urine Moderate (2+)(A) Negative [facility] RBC Urine 0-2 0 - 2 /HPF [facility] Urine WBC 21-50(A) 0 - 5 /HPF [facility] Urine Squamous Epithelial Cell 3-5 0 - 2 /HPF [facility] Urine Bacteria 4+ None Seen [facility] Hyaline Casts, Urine 3-5 0 - 2 /LPF [facility] 04/01/2024 1:11 PM EST 04/01/2024 1:17 PM EST Narrative [facility] - 04/01/2024 1:30 PM EST Urine, Clean Catch Generic External Data Provider LAB URINE ORDERAB LES Final Result Performing Organization Address [facility] Co de Phone Number [facility] [address] [place] [phone] * Colonoscopy (12/18/2014) Colonoscopy Tubular Adenoma Comment:Dr. Montoya us Historical Provider HEALTH MAINTENANCE Final Result from Last 3 Months or Most Recently Relevant to Health Maintenance Insurance [facility] STANDARD [employer] MEDICARE REPLACEMENT * Guarantor: Nikita Broussard Account Type Relation to Patient Date of Phone Billing Address Personal/Family Self [place], [place] Care Teams Belt And Link Assembly Supervisor Relationship Specialty Start Date End Date Panda Crooks MD [address] [place] [phone] [facility] - General Internal Medicine 12/18/13 [place] TATE 04/06/24
--- OUTSIDE RECORDS SUMMARY | 2024-05-13 12:54 | XMS_ITS | Encounter Summary ---
Author Organization [facility] Address [address] [facility] [facility] [address] [place] [phone] Phone Care Team Providers Care Office Services Assistant Name Role Phone Panda Muniz MD Primary Care Provider Unav ailable Reason for Visit * Reason Comments Med Refill Encounter Details Date Type Department Care Team (Late Contact Info) Description 04/05/2022 Refill [facility] [address] [facility] [address] [place] [phone] Sami Morales MD Social History [...] Visit [facility] [address] [place] [phone] Alfonso Cole MD [address] [facility] [address] [place] [phone] documented as of this encounter Visit Diagnoses Not on filedocumented in this encounter Care Teams Office Services Assistant Relationship Specialty Start Date End Date Panda Muniz MD PCP - General 03/15/20 documented as of this encounter
--- OUTSIDE RECORDS SUMMARY | 2024-05-13 12:54 | XMS_ITS | Encounter Summary ---
Author Organization [facility] Address [address] [facility] [address] [place] [address] Phone Care Team Providers Care Test Designer Name Role Phone Panda Muniz MD Primary Care Provider Unav ailable Reason for Visit * Reason Comments Med Refill Encounter Details Date Type Department Care Team (Late Contact Info) Description 09/28/2020 Refill [facility] [address] [facility] [address] [place] [address] Sami Morales MD Social History [...] Visit [facility] [address] [place] [phone] Alfonso Cole MD [address] [facility] [address] [place] [address] documented as of this encounter Visit Diagnoses Not on filedocumented in this encounter Care Teams Test Designer Relationship Specialty Start Date End Date Panda Muniz MD PCP - General 03/15/20 documented as of this encounter
--- OUTSIDE RECORDS SUMMARY | 2024-05-13 12:54 | XMS_ITS | Encounter Summary ---
Author Organization [employer] Address [address] [facility] 7 [place] [address] Care Team Providers Care Processing Inspector Name Role Phone Panda Crooks MD Primary Care Provide r Encounter Details Date Type Department Care Team (Late st Contact Info) Description 05/13/2024 Orders Only [facility] MEDICINE [address] [place], [place] [phone] Panda Crooks MD 230 [place] [address] Social History Tobacco Use Types Packs/Day Years [...] Description 07/22/2024 2:00 PM EDT Office Visit [facility] MEDICINE [address] [place] [address] Panda Crooks MD 230 [place] [address] documented as of this encounter Procedures Procedure Name Priority Date/Time Associated Diagnosis Comments HEPATIC FUNCTION PANEL Routine 05/13/2024 10:45 AM EDT documented in this encounter Results * Hepatic Function Panel (05/13/2024 10:45 AM EDT) Bilirubin, Direct 0.2 0.0 - 0.5 mg/dL [facility] 05/13/2024 10:4 5 AM EDT 05/13/2024 11:29 AM EDT us Panda Farmer MD LAB BLOOD ORDERABLES Final Result [facility] [address] [place] [address] [phone] documented in this encounter Visit Diagnoses Not on filedocumented in this encounter Additional Health Concerns Assessment Noted Time PHQ-9 Depression Total Score: 0 11/01/19 24 10:45 AM EDT documented as of this encounter Care Teams Processing Inspector Relationship Specialty Start Date End Date Panda Crooks MD 230 [facility] [place] [address] PCP - General Internal Medicine 12/18/13 [place] TATE 04/06/24 documented as of this encounter
--- OUTSIDE RECORDS SUMMARY | 2024-05-13 12:54 | XMS_ITS | Encounter Summary ---
Author Organization [facility] Address [address] [facility] [address] [place] [address] Phone Care Team Providers Care Life Specialist Name Role Phone Panda Muniz MD Primary Care Provider Unav ailable Reason for Visit * Reason Comments Med Refill Encounter Details Date Type Department Care Team (Late Contact Info) Description 07/20/2022 Refill [facility] [address] [place] [phone] Sami Morales MD Social History Tobacco Use [...] Office Visit [facility] [address] [place] [phone] Alfonso Cole MD [address] [facility] [address] [place] [phone] documented as of this encounter Visit Diagnoses Not on filedocumented in this encounter Care Teams Life Specialist Relationship Specialty Start Date End Date Panda Muniz MD PCP - General 03/15/20 documented as of this encounter
--- OUTSIDE RECORDS SUMMARY | 2024-05-13 12:54 | XMS_ITS | Encounter Summary ---
Author Organization [facility] Address [address] [facility] [address] [place] [address] Phone Care Team Providers Care Hand Tier Name Role Phone Panda Muniz MD Primary Care Provider Unav ailable Reason for Visit * Reason Comments Med Refill Encounter Details Date Type Department Care Team (Late Contact Info) Description 02/27/2022 Refill [facility] [address] [place] [address] Sami Morales MD Social History [...] [facility] [address] [place] [phone] Alfonso Cole MD 3556 [facility] 204 [place] [phone] documented as of this encounter Visit Diagnoses Not on filedocumented in this encounter Care Teams Hand Tier Relationship Specialty Start Date End Date Panda Muniz MD PCP - General 03/15/20 documented as of this encounter
--- OUTSIDE RECORDS SUMMARY | 2024-05-13 12:55 | XMS_ITS | Encounter Summary ---
Author Organization [facility] Address [address] [facility] 204 [place] [address] Phone Care Team Providers Care Manager Fine Name Role Phone Panda Muniz MD Primary Care Provider Dashawn ailable Encounter Details Date Type Department Care Team (Late Contact Info) Description 05/06/2024 Telephone [facility] [address] [facility] 204 [place] [address] Anh Montoya [place] [address] [facility] 200 [place] [address] Social History Tobacco Use Types Packs/Day Years [...] encounter Miscellaneous Notes * Telephone Encounter - Anh Montoya MA - 05/06/2024 3:38 PM EST [facility] called( julia) , is requesting if patient can do 10 mg of furosemide daily, she is taking 20 mg now . She will need a scrip sent over to her pharmacy documented in this encounter Plan of Treatment Upcoming Encounters Date Type Department Care Team (Late Contact Info) Description 06/30/2024 1:30 PM EDT Office Visit [facility] [address] [place] [phone] Alfonso Cole MD [address] [phone] documented as of this encounter Visit Diagnoses Not on filedocumented in this encounter Care Teams Manager Fine Relationship Specialty Start Date End Date Panda Muniz MD PCP - General 03/15/20 documented as of this encounter
--- OUTSIDE RECORDS SUMMARY | 2024-05-13 12:55 | XMS_ITS | Encounter Summary ---
Author Organization [employer] Address [address] [place] [address] 7 [place] [address] Care Team Providers Care Glass Block Bender Name Role Phone Panda Crooks MD Primary Care Provide r Reason for Visit * Reason Onset Date Comments Appointment Request 05/25/2022 Encounter Details Date Type Department Care Team (Late Contact Info) Description 05/25/2022 Telephone [facility] MEDICINE 230 [place], [place] [phone] Panda Crooks MD 230 [place] [address] Appointment Request Social History Tobacco Use Types [...] physical appt for pt. Please Roro at [phone] documented in this encounter Plan of Treatment Upcoming Encounters Date Type Department Care Team (Late st Contact Info) Description 07/22/2024 2:00 PM EDT Office Visit [facility] MEDICINE [address] [place] [address] Panda Crooks MD 230 [place], [place] [phone] documented as of this encounter Visit Diagnoses Not on filedocumented in this encounter Care Teams Glass Block Bender Relationship Specialty Start Date End Date Panda Crooks MD Joanie [place], [place] [phone] PCP - General Internal Medicine 12/18/13 [place] A 04/06/24 documented as of this encounter
--- OUTSIDE RECORDS SUMMARY | 2024-05-13 12:55 | XMS_ITS | Encounter Summary ---
Author Organization [employer] Address [address] [place] [address] 7 [place] [address] Care Team Providers Care Cloth Spreader Name Role Phone Pnada Crooks MD Primary Care Provide r Encounter Details Date Type Department Care Team (Late st Contact Info) Description 07/12/2022 Abstract [facility] MEDICINE [address] [place] [address] Panda Crooks MD [address] [place] [address] Social History Tobacco Use Types Packs/Day Years [...] Description 07/22/2024 2:00 PM EDT Office Visit [facility] MEDICINE [address] [place] [address] Panda Crooks MD [address] [place] [address] documented as of this encounter Procedures Procedure Name Priority Date/Time Associated Diagnosis Comments COLONOSCOPY Routine 12/18/2014 documented in this encounter Results * Hm Colonoscopy (12/18/2014) Colonoscopy Normal Normal 12/18/2014 Chacha Rodriguez - 12/18/2014 2:03 PM EDT Recommended 10 year follow up Historical Provider HEALTH MAINTENANCE Final Result documented in this encounter Visit Diagnoses Not on filedocumented in this encounter Additional Health Concerns Assessment Noted Time PHQ-9 Depression Total Score: 12 023 12:21 PM EDT documented as of this encounter Care Teams Cloth Spreader Relationship Specialty Start Date End Date Panda Crooks MD [address] [place] [address] PCP - General Internal Medicine 12/18/13 [place] TATE 04/06/24 documented as of this encounter
--- OUTSIDE RECORDS SUMMARY | 2024-05-13 12:55 | XMS_ITS | Encounter Summary ---
Author Organization [facility] Address 35[address] [facility] 204 [place] [address] Phone Care Team Providers Care Supply Analyst Name Role Phone Panda Muniz MD Primary Care Provider Unav ailable Reason for Visit * Reason Onset Date Comments Med Refill 05/07/2024 Encounter Details Date Type Department Care Team ([facility] Contact Info) Description 05/07/2024 Refill [facility] [address] [phone] Anh Montoya MA [address] [facility] 200 [place] [address] Stage 3b chronic kidney disease (HCC) Social History Tobacco Use Types Packs/Day Years [...] Office Visit [facility] [address] [place] [phone] Alfonso Cole MD 35[address] [facility] 204 [place] [address] documented as of this encounter Visit Diagnoses Diagnosis Stage 3b chronic kidney disease (HCC) documented in this encounter Care Teams Supply Analyst Relationship Specialty Start Date End Date Panda Muniz MD PCP - General 03/15/20 documented as of this encounter
--- OUTSIDE RECORDS SUMMARY | 2024-05-13 12:55 | XMS_ITS | Encounter Summary ---
Author Organization [employer] Address [address] [place] [address] 7 [place] [address] Care Team Providers Care Director Of Recruitment And Admissions Name Role Phone Panda Crooks MD Primary Care Provide r Encounter Details Date Type Department Care Team (Late Contact Info) Description 09/02/2022 Orders Only [facility] MEDICINE [address] [place] [address] [phone] Panda Crooks MD [address] [place] [address] [phone] Macrocytic anemia (Primary Dx) Social History Tobacco [...] Description 07/22/2024 2:00 PM EDT Office Visit [facility] MEDICINE [address] [place] [address] [phone] Panda Crooks MD [address] [place] [phone] Scheduled Orders Name Type Priority Associated Diagnoses [...] documented as of this encounter Care Teams Director Of Recruitment And Admissions Relationship Specialty Start Date End Date Panda Crooks MD [address] [place] [address] [place] [address] PCP - General Internal Medicine 12/18/13 [place] 04/06/24 documented as of this encounter
--- OUTSIDE RECORDS SUMMARY | 2024-05-13 12:55 | XMS_ITS | Encounter Summary ---
Author Organization [employer] [facility] Address [address] [place] [address] 7 [place] [address] Care Team Providers Care Head Greenskeeper Name Role Phone Panda Crooks MD Primary Care Provide r Encounter Details Date Type Department Care Team (Late st Contact Info) Description 01/25/2022 Abstract [facility] MEDICINE [address] [place] [phone] Panda Crooks MD [address] [place] [address] [phone] Social History Tobacco Use Types Packs/Day Years [...] Description 07/22/2024 2:00 PM EDT Office Visit [facility] MEDICINE [address] [place] [address] [phone] Panda Crooks MD 230 [place], [place] [phone] documented as of this encounter Procedures Procedure Name Priority Date/Time Associated Diagnosis Comments COLONOSCOPY Routine 12/18/2014 documented in this encounter Results * Colonoscopy (12/18/2014) Colonoscopy Tubular Adenoma Comment:Dr. Montoya us Historical Provider HEALTH MAINTENANCE Final Result documented in this encounter Visit Diagnoses Not on filedocumented in this encounter Care Teams Head Greenskeeper Relationship Specialty Start Date End Date Panda Crooks MD [address] [place] [address] PCP - General Internal Medicine 12/18/13 [place] [facility] 04/06/24 documented as of this encounter
[2024-05-13 12:58] LABS: Prostate Specific Antigen Scr 0.74 ng/mL (<0.05-4.0); Vitamin B12 1475 pg/mL (200-900)
== END 2024-05-13 10:44 | disposition home or self-care (01) ==
LOC: HO.HHCL 10:43
PROVIDERS: Visit Provider Internal Medicine
DX: E78.2 Mixed hyperlipidemia (principal); N18.2 Chronic kidney disease, stage 2 (mild); R68.89 Other general symptoms and signs; N40.1 Benign prostatic hyperplasia with lower urinary tract symptoms; R35.0 Frequency of micturition; Z12.5 Encounter for screening for malignant neoplasm of prostate
CPT/HCPCS: 36415; 80053; 80061; 82248; 82607; 82746; 84153; 86780

== ENCOUNTER 2024-07-30 17:43 | Outpatient (REF) | payer MEDICARE, SELFPAY ==
[2024-07-31 05:16] LABS: CT PCR NOT DETECTED (Not Detect.); NG PCR NOT DETECTED (Not Detect.)
== END 2024-07-30 17:44 | disposition home or self-care (01) ==
LOC: HO.LNP 17:43
PROVIDERS: Visit Provider Internal Medicine
DX: R30.0 Dysuria (principal)
CPT/HCPCS: 87086; 87088; 87186; 87491; 87591

== ENCOUNTER 2024-10-28 16:31 | Outpatient (REF) | payer MEDICARE, SELFPAY ==
--- OUTSIDE RECORDS SUMMARY | 2024-10-28 09:00 | XMS_ITS | Encounter Summary ---
Author Organization [employer] Address [address] [place] [address] 7t [place] [address] Care Team Providers Care Product Manager Name Role Phone Panda Crooks MD Primary Care Provide r Encounter Details Date Type Department Care Team (Late st Contact Info) Description 10/28/2024 9:00 AM EDT Office Visit [facility] [address] [place] [phone] Nicko Kevin MD 230 [place], [place] [phone] Dysuria (Primary Dx) Social History Tobacco Use Types Packs/Day Years Used Date Smoking Tobacco: Every Day Cigars Passive Smoke Exposure: Current Smokeless Tobacco: Never Alcohol Use Standard Drinks/Week Comments Not Currently 0 (1 standard drink = 0.6 oz pur e alcohol) Depression Answer Date Recorded Patient Health Questionnaire-9 Score 0 07/30/2024 Patient Health Questionnaire-9 Score 0 07/30/2024 Last PHQ-9: Questionnaire Data Not on file 0 07/30/2024 Housing Stability Answer Date Recorded What is [...] Date Recorded Patient Health Questionnaire-2 Score 0 07/30/2024 Internet Access Answer Date Recorded Internet Access [...] Sign Reading Time Taken Comments Blood Pressure 131/77 10/28/2024 9:05 AM EDT Pulse 62 10/28/2024 9:05 AM EDT Temperature 36.7 C (98 F) 10/28/2024 9:05 AM EDT Respiratory Rate 14 10/28/2024 9:05 AM EDT Oxygen Saturation 98% 10/28/2024 9:05 AM EDT Inhaled Oxygen Concentration - - Weight 102 kg (225 lb) 10/28/2024 9:05 AM EDT Height 180.3 cm (5' 11 ) 10/28/2024 9:05 AM EDT Body Mass Index 31.38 10/28/2024 9:05 AM EDT documented in this encounter Progress Notes * Nicko Kevin MD - 10/28/2024 9:00 AM EDT Subjective Patient ID: Nikita Broussard is a 73 y.o. male. 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 HPI Nikita states that he has had burning on urination for 4 months. web worker states that he c/oburning on urination a few days ago. Denies fever, chills, n/v, abdominal or flank pain. On 07/30, urine C&S grew Citrobacter koseri, quinones sensitive. He took Levaquin 250 mg for 5 days. Lives alone. Smokes 1/2 PPD. Declines NRT. 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) 11/01/2023 Routine physical examination 11/01/2023 Preventative health care 11/01/2023 Vasovagal syncope 06/29/2022 Scrotal sac enlargement 02/09/2022 Tinea cruris 02/09/2022 Obesity 05/31/2021 Tobacco dependence syndrome 05/31/2021 Renal osteodystrophy 05/31/2021 Benign prostatic hyperplasia 04/26/2021 Proteinuria 10/05/2020 Macrocytic anemia 02/15/2017 Paranoid schizophrenia (CMS/HCC) 10/26/2016 Essential hypertension 01/26/2015 Tubular adenoma 01/26/2015 Hyperlipidemia 03/12/2012 Macrocytosis 03/12/2012 The following portions of the chart were reviewed this encounter and updated as appropriate: Tobacco Allergies Meds Problems Med Hx Surg Hx Fam Hx Review of Systems Constitutional: Negative for fever. Respiratory: Negative for shortness of breath. Cardiovascular: Negative for chest pain. Gastrointestinal: Negative for abdominal pain. Genitourinary: Positive for dysuria. Negative for penile discharge. Skin: Negative for rash. Neurological: Negative for headaches. Objective Physical Exam Constitutional: Appearance: Normal appearance. HENT: Nose: Nose normal. Eyes: Conjunctiva/sclera: Conjunctivae normal. Pupils: Pupils are equal, round, and reactive to light. Cardiovascular: Rate and Rhythm: Normal rate and regular rhythm. Heart sounds: No murmur heard. Pulmonary: Effort: Pulmonary effort is normal. Breath sounds: Normal breath sounds. Abdominal: General: Abdomen is flat. Palpations: Abdomen is soft. Tenderness: There is no abdominal tenderness. There is no right CVA tenderness or left CVA tenderness. Musculoskeletal: General: Normal range of motion. Cervical back: No tenderness. Skin: Findings: No rash. Neurological: Mental Status: He is alert. Gait: Gait is intact. Psychiatric: Mood and Affect: Mood normal. Behavior: Behavior normal. Procedures Assessment/Plan Diagnoses and all orders for this visit: Dysuria U/a: + nitrite, large leuk Urine C&S pending. Prescribed cefpodoxime. Patient's calculated creatinine clearance did not necessitate dose reduction. Return to clinic if not improving - POCT Urinalysis - Culture, Urine, Routine; Future documented in this encounter Plan of Treatment Upcoming Encounters Date Type Department Care Team (Late st Contact Info) Description 10/30/2024 2:15 PM EDT Office Visit [facility] MEDICINE [address] [place] [address] Panda Crooks MD [address] [place] [address] Scheduled Orders Name Type Priority Associated Diagnoses Orde r Schedule Culture, Urine, Routine Microbiology Routine Dysuria Expected: 10/28/2024 (Approximate), Expires: 10/28/2025 documented as of this encounter Procedures Procedure Name Priority Date/Time Associated Diagnosis Comments POCT URINALYSIS DIPSTICK Routine 10/28/2024 9:38 AM EDT Dysuria documented in this encounter Results * (ABNORMAL) POCT Urinalysis (10/28/2024 9:38 AM EDT) Color, UA Yellow Clarity, UA Cloudy Glucose, UA Negative Bilirubin, UA Negative Ketones, UA Negative Spec Grav, UA 1.020 Blood, UA Positive(A) Negative, None Detected Comment:trace-intact pH, UA 6.0 Protein, UA 3+ 500+++ Comment:30 mg/dl Urobilinogen, UA 1.0 Leukocytes, UA Many(A) Negative, Rare, Trace Comment:large Nitrite, UA Positive(A) Negative, None Detected Urine 10/28/2024 9:38 AM EDT us Nicko Kevin MD POINT OF CARE TEST ENTER/EDIT OR DERABLES Final Result documented in this encounter Visit Diagnoses Diagnosis Dysuria- Primary documented in this encounter Additional Health Concerns Assessment Noted Time PHQ-9 Depression Total Score: 0 07/31/19 25 9:12 AM EDT documented as of this encounter Care Teams Product Manager Relationship Specialty Start Date End Date Panda Crooks MD [address] [place] [address] PCP - General Internal Medicine 12/18/13 [place] TATE 04/06/24 documented as of this encounter
--- OUTSIDE RECORDS SUMMARY | 2024-10-28 16:53 | XMS_ITS | Clinical Summary ---
Author Organization [facility] Address [address] [place] [address] Care Team Providers Care Mortuary Operations Manager Name Role Phone Panda Muniz MD Primary [...] MOUTH EVERY DAY 30 tablet 3 Active memantine (NAMENDA) 5 MG tablet 5 Active furosemide (LASIX) 20 MG tabletIndicati ons:Stage 3b chronic kidney disease (HCC) TAKE 2 TABLETS (40 MG TOTAL) BY MOUTH 1 (ONE) TIME EACH DAY 60 tablet 10 5 Active ergocalciferol 1.25 MG (25677 UT) capsule TAKE 1 CAPSULE (50,000 UNITS TOTAL) BY MOUTH EVERY 30 (THIRTY) DAYS 1 capsule 9 5 Active hydrALAZINE 50 MG tablet TAKE 1 TABLET (50 MG TOTAL) BY MOUTH IN THE MORNING AND 1 TABLET (50 MG TOTAL) BEFORE BEDTIME. 60 tablet 5 Active hydrALAZINE 50 MG tablet Take 1 tablet (50 mg total) by mouth in the morning and 1 tablet (50 mg total) before bedtime. 180 tablet 3 5 10/29/19 25 Discontinued Active Problems Problem Noted Date Diagnosed [...] indicative of this, discuss with pt and manager wound care the need for better hygene, pt only bathing once or twice a week. cutting machine fixer promised to help with bathing Also recommended [...] hematuria, care managed by [facility]. Last seen July 2021 Recommended [...] Encounters Date Type Department Care Team Description 10/28/2024 Refill [facility] [address] [place] [address] Alfonso Cole MD 09/10/2024 Refill [facility] [address] [place] [phone] Alfonso Cole MD from Last 3 Months Immunizations Immunization Administration Dates Next Due Moderna SARS-COV-2 03/10/2021,06/04/2020, [...] Sign Reading Time Taken Comments Blood Pressure 112/60 06/30/2024 1:26 PM EDT Pulse 68 06/30/2024 1:26 PM EDT Temperature - - Respiratory Rate - - Oxygen Saturation 96% 06/30/2024 1:26 PM EDT Inhaled Oxygen Concentration - - Weight 102 kg (223 lb 12.8 oz) 06/30/2024 1:26 P M EDT Height 185.4 cm (6' 1 ) 12/24/2018 12:00 PM EDT Body Mass Index 29.53 12/24/2018 12:00 PM EDT Plan of Treatment Upcoming Encounters Date Type Department Care Team (Late st Contact Info) Description 12/29/2024 3:15 PM EDT Office Visit [facility] [address] [place] [phone] Alfonso oCle MD [address] [phone] Health Maintenance Due Date Last Done Comments Colorectal Cancer Screening: Annual FOBT 1997 Colorectal Cancer Screening: Colonoscopy 1997 Colorectal Cancer Screening: Sigmoidoscopy 1997 Influenza Vaccine (#1) 2024 Pneumococcal Vaccine: 50+ Years Completed 05/13/2024, 07/25/2016, 07/20/2015 Pneumococcal Vaccine: Peds ( 0 to 5 Years) and At-Risk Patients (6 to 49 Years) Discontinued 05/13/2024, 07/25/2016, 07/20/2015 Hepatitis B Vaccine Aged Out No longe r eligible based on patient's age to complete this topic Insurance [employer] [facility]ly [facility] Medicare Care Teams Mortuary Operations Manager Relationship Specialty Start Date End Date Panda Muniz MD PCP - General 03/15/20
--- OUTSIDE RECORDS SUMMARY | 2024-10-28 16:53 | XMS_ITS | Encounter Summary ---
Author Organization [employer] Address [address] [place] [address] 7 [place] [address] Care Team Providers Care Personal Injury Paralegal Name Role Phone Panda Crooks MD Primary Care Provide r Reason for Visit * Reason Onset Date Comments Hospital Follow-up 04/07/2024 Encounter Details Date Type Department Care Team ([facility] st Contact Info) Description 04/07/2024 Telephone [facility] MEDICINE [address] [place], [place] [phone] Panda Crooks MD [address] [place] [address] Hospital Follow-up Social History Tobacco Use Types [...] enough money to get more: Never True 10/ Transportation Answer Date Recorded In the past [...] from pt requesting a HDF appt. [place] [facility] [place] Date of admission: 04/01/24 Discharge date: 04/05/24 Diagnosed: Flu and UTI *Send message to [facility] Clinical Care Coordinators Contact Pt [employer] at [phone] documented in this encounter Plan of Treatment Upcoming Encounters Date Type Department Care Team ([facility] st Contact Info) Description 10/30/2024 2:15 PM EDT Office Visit [facility] MEDICINE [address] [place] [address] Panda Crooks MD [address] [place] [address] documented as of this encounter Visit Diagnoses Not on filedocumented in this encounter Additional Health Concerns Assessment Noted Time PHQ-9 Depression Total Score: 0 11/01/19 10:45 AM EDT documented as of this encounter Care Teams Personal Injury Paralegal Relationship Specialty Start Date End Date Panda Crooks MD [address] [place] [address] PCP - General Internal Medicine 12/18/13 [place] [facility] 04/06/24 documented as of this encounter
--- OUTSIDE RECORDS SUMMARY | 2024-10-28 16:53 | XMS_ITS | Encounter Summary ---
Author Organization [employer] Address [address] [place] [address] 7t [place] [address] Care Team Providers Care Double Cutter Name Role Phone Panda Crooks MD Primary Care Provide r Encounter Details Date Type Department Care Team ([facility] st Contact Info) Description 07/10/2024 Orders Only [facility] [address] [place], [place] [phone] Perlita Henao ANP 230 [place], [place] [phone] Social History Tobacco Use Types Packs/Day Years [...] Description 10/30/2024 2:15 PM EDT Office Visit [facility] [address] [place] [address] Panda Crooks MD 230 [place] [address] documented as of this encounter Visit Diagnoses Not on filedocumented in this encounter Additional Health Concerns Assessment Noted Time PHQ-9 Depression Total Score: 0 11/01/19 24 10:45 AM EDT documented as of this encounter Care Teams Double Cutter Relationship Specialty Start Date End Date Panda Crooks MD 230 [place] [address] PCP - General Internal Medicine 12/18/13 Julieta KATZA 04/06/24 documented as of this encounter
--- OUTSIDE RECORDS SUMMARY | 2024-10-28 16:54 | XMS_ITS | Encounter Summary ---
Author Organization [facility] Address [address] [facility] 200 [place] [address] Phone Care Team Providers Care Flight Attendant/Inflight Manager Name Role Phone Panda Muniz MD Primary Care Provider Unav ailable Reason for Visit * Reason Comments Med Refill Encounter Details Date Type Department Care Team (Late Contact Info) Description 10/28/2024 Refill [facility] [address] [facility] 200 [place] [address] Alfonso Cole MD [address] [address] Social History Tobacco Use Types Packs/Day Years [...] Visit [facility] [address] [place] [address] Alfonso Cole MD [address] [address] documented as of this encounter Visit Diagnoses Not on filedocumented in this encounter Care Teams Flight Attendant/Inflight Manager Relationship Specialty Start Date End Date Panda Muniz MD PCP - General 03/15/20 documented as of this encounter
--- OUTSIDE RECORDS SUMMARY | 2024-10-28 16:54 | XMS_ITS | Encounter Summary ---
Author Organization [employer] Address [address] [place] [address] 7t [place] [address] Care Team Providers Care Elevated Motorman Name Role Phone Panda Crooks MD Primary Care Provide r Reason for Visit * Reason Comments Med Refill Encounter Details Date Type Department Care Team ([facility] st Contact Info) Description 09/23/2024 Refill [facility] 230 [place], [place] [phone] Panda Crooks MD 230 [place] [address] Social History Tobacco Use Types Packs/Day Years [...] 10/30/2024 2:15 PM EDT Office Visit [facility] 230 [place] [address] Panda Crooks MD 230 [place] [address] documented as of this encounter Visit Diagnoses Not on filedocumented in this encounter Additional Health Concerns Assessment Noted Time PHQ-9 Depression Total Score: 0 07/31/19 9:12 AM EDT documented as of this encounter Care Teams Elevated Motorman Relationship Specialty Start Date End Date Panda Crooks MD 230 [place] [address] PCP - General Internal Medicine 12/18/13 Julieta KATZA 04/06/24 documented as of this encounter
--- OUTSIDE RECORDS SUMMARY | 2024-10-28 16:54 | XMS_ITS | Encounter Summary ---
Author Organization [facility] Address [address] [facility] 200 [place] [address] Phone Care Team Providers Care Cartographic Aide Name Role Phone Panda Muniz MD Primary Care Provider Unav ailable Reason for Visit * Reason Comments Med Refill Encounter Details Date Type Department Care Team (Late Contact Info) Description 07/20/2022 Refill [facility] [address] [place] [address] [place] [phone] Sami Morales MD Social History Tobacco Use [...] Department Care Team (Late Contact Info) Description 12/29/2024 3:15 PM EDT Office Visit [facility] [address] [place] [address] [place] [address] Alfonso Cole MD 3557 [facility] 204 [place] [phone] documented as of this encounter Visit Diagnoses Not on filedocumented in this encounter Care Teams Cartographic Aide Relationship Specialty Start Date End Date Panda Muniz MD PCP - General 03/15/20 documented as of this encounter
--- OUTSIDE RECORDS SUMMARY | 2024-10-28 16:54 | XMS_ITS | Encounter Summary ---
Author Organization [employer] Address [address] [place] [address] [place] [address] Care Team Providers Care Load Out Supervisor Name Role Phone Panda Crooks MD Primary Care Provide r Reason for Visit * Reason Onset Date Comments Appointment Request 05/25/2022 Encounter Details Date Type Department Care Team (Late st Contact Info) Description 05/25/[address] [facility] 230 [place], [place] [phone] Panda Crooks MD 230 [place] [address] Appointment Request Social History Tobacco Use Types [...] - 05/25/2022 9:07 AM EDT Tc from [facility] with [facility] requesting a physical appt for pt. Please Roro at [phone] documented in this encounter Plan of Treatment Upcoming Encounters Date Type Department Care Team (Late st Contact Info) Description 10/30/2024 2:15 PM EDT Office Visit [facility] [address] [place] [address] Panda Crooks MD [address] [place] [address] documented as of this encounter Visit Diagnoses Not on filedocumented in this encounter Care Teams Load Out Supervisor Relationship Specialty Start Date End [place] [address] PCP - General Internal Medicine 12/18/13 Julieta A 04/06/24 documented as of this encounter
--- OUTSIDE RECORDS SUMMARY | 2024-10-28 16:54 | XMS_ITS | Encounter Summary ---
Author Organization [facility] Address 100 [facility] 200 [place] [address] Phone Care Team Providers Care Animal Cytologist Name Role Phone Panda Muniz MD Primary Care Provider Unav ailable Reason for Visit * Reason Comments Med Refill Encounter Details Date Type Department Care Team (Late Contact Info) Description 05/15/2022 Refill [facility] 100 [facility] [facility] 200 [place] [address] Sami Morales MD Social History [...] Visit [facility] [address] [place] [address] [place] [phone] Alfonso Cole MD 355 [facility] 204 [place] [phone] documented as of this encounter Visit Diagnoses Not on filedocumented in this encounter Care Teams Animal Cytologist Relationship Specialty Start Date End Date Panda Muniz MD PCP - General 03/15/20 documented as of this encounter
--- OUTSIDE RECORDS SUMMARY | 2024-10-28 16:54 | XMS_ITS | Encounter Summary ---
Author Organization [employer] Address [address] [place] [address] 7t [place] [address] Care Team Providers Care Wood Heel Flap Rubber Name Role Phone Panda Crooks MD Primary Care Provide r Encounter Details Date Type Department Care Team (Latest Contact Info) Description 10/28/2024 Travel Social History Tobacco Use Types Packs/Day [...] Description 10/30/2024 2:15 PM EDT Office Visit [facility] 230 [place] [address] Panda Crooks MD 230 [place] [address] documented as of this encounter Visit Diagnoses Not on filedocumented in this encounter Additional Health Concerns Assessment Noted Time PHQ-9 Depression Total Score: 0 07/31/19 9:12 AM EDT documented as of this encounter Care Teams Wood Heel Flap Rubber Relationship Specialty Start Date End Date Panda Crooks MD 230 [place] [address] PCP - General Internal Medicine 12/18/13 Julieta TATE 04/06/24 documented as of this encounter
--- OUTSIDE RECORDS SUMMARY | 2024-10-28 16:54 | XMS_ITS | Encounter Summary ---
Author Organization [facility] Address 100 [facility] 200 [place] [address] Phone Care Team Providers Care Route Sales Manager Name Role Phone Panda Muniz MD Primary Care Provider Unav ailable Reason for Visit * Reason Comments Med Refill Encounter Details Date Type Department Care Team (Late Contact Info) Description 03/28/2022 Refill [facility] [address] [facility] 200 [place] [address] Sami Morales MD Social History [...] Visit [facility] [address] [place] [address] [place] [phone] Alfonso Cole MD 3555 [facility] 204 [place] [phone] documented as of this encounter Visit Diagnoses Not on filedocumented in this encounter Care Teams Route Sales Manager Relationship Specialty Start Date End Date Panda Muniz MD PCP - General 03/15/20 documented as of this encounter
--- OUTSIDE RECORDS SUMMARY | 2024-10-28 16:54 | XMS_ITS | Encounter Summary ---
Author Organization [facility] Address [address] [facility] 200 [place] [address] Phone Care Team Providers Care Flight Radio Officer Name Role Phone Panda Muniz MD Primary Care Provider Unav ailable Reason for Visit * Reason Comments Med Refill Encounter Details Date Type Department Care Team (Late Contact Info) Description 09/28/2020 Refill [facility] [address] [facility] 200 [place] [address] Sami Morales MD Social History [...] Visit [facility] [address] [place] [address] [place] [phone] Alfonso Cole MD 0314 [facility] 204 [place] [address] documented as of this encounter Visit Diagnoses Not on filedocumented in this encounter Care Teams Flight Radio Officer Relationship Specialty Start Date End Date Panda Muniz MD PCP - General 03/15/20 documented as of this encounter
--- OUTSIDE RECORDS SUMMARY | 2024-10-28 16:54 | XMS_ITS | Encounter Summary ---
Author Organization [employer] Address [address] [place] [address] 7 [place] [address] Care Team Providers Care Glazing Superintendent Name Role Phone Panda Crooks MD Primary Care Provide r Encounter Details Date Type Department Care Team (Late st Contact Info) Description 07/12/2022 Abstract [facility] [address] [place] [address] Panda Crooks MD 230 [place] [address] Social History Tobacco Use Types Packs/Day Years [...] Description 10/30/2024 2:15 PM EDT Office Visit [facility] [address] [place] [address] Panda Crooks MD [address] [place] [address] documented as of this encounter Procedures Procedure Name Priority Date/Time Associated Diagnosis Comments COLONOSCOPY Routine 12/18/2014 documented in this encounter Results * Colonoscopy (12/18/2014) Colonoscopy Normal Normal 12/18/2014 Chacha Rodriguez - 12/18/2014 2:03 PM EDT Recommended 10 year follow up us Historical Provider HEALTH MAINTENANCE Final Result documented in this encounter Visit Diagnoses Not on filedocumented in this encounter Additional Health Concerns Assessment Noted Time PHQ-9 Depression Total Score: 12 023 12:21 PM EDT documented as of this encounter Care Teams Glazing Superintendent Relationship Specialty Start Date End Date Panda Crooks MD [address] [place] [address] PCP - General Internal Medicine 12/18/13 Julieta TATE 04/06/24 documented as of this encounter
--- OUTSIDE RECORDS SUMMARY | 2024-10-28 16:54 | XMS_ITS | Encounter Summary ---
Author Organization [employer] Address [address] [place] [address] 7 [place] [address] Care Team Providers Care Wrecking Mechanic Name Role Phone Panda Crooks MD Primary Care Provide r Encounter Details Date Type Department Care Team (Late st Contact Info) Description 09/11/2022 Orders Only [facility] [address] [place] [phone] Elodia Rivero MD [address] [place] [address] [phone] Social History Tobacco Use Types Packs/Day Years [...] 10/30/2024 2:15 PM EDT Office Visit [facility] [address] [place] [phone] Panda Crooks MD 230 [place], [place] [phone] documented as of this encounter Visit Diagnoses Not on filedocumented in this encounter Additional Health Concerns Assessment Noted Time PHQ-9 Depression Total Score: 12 023 12:21 PM EDT documented as of this encounter Care Teams Wrecking Mechanic Relationship Specialty Start Date End Date Panda Crooks MD [address] [place] [address] PCP - General Internal Medicine 12/18/13 Julieta Ashley 04/06/24 documented as of this encounter
--- OUTSIDE RECORDS SUMMARY | 2024-10-28 16:54 | XMS_ITS | Encounter Summary ---
Author Organization [employer] Address [address] [place] [address] 7 [place] [address] Care Team Providers Care Instructor Watch Assembly Name Role Phone Panda Crooks MD Primary Care Provide r Reason for Visit * Reason Onset Date Comments Lab Orders 10/27/2024 Encounter Details Date Type Department Care Team ([facility] st Contact Info) Description 10/27/2024 Telephone [facility] 230 [place], [place] [phone] Panda Crooks MD 230 [place] [address] Lab Orders Social History Tobacco Use Types Packs/Day Years [...] encounter Miscellaneous Notes * Telephone Encounter - Alanis Roa RN - 10/28/2024 10:07 AM EDT Tc from Amarilis Rodriguez at [facility] requesting a lab order for urine test . Contact Amarilis huffman [phone] Patient seen in [facility] in [place] today 10/28/24 no further action needed * Telephone Encounter - Bonita Poole - 10/27/2024 3:48 PM EDT Tc from Amarilis Rodriguez at [facility] requesting a lab order for urine test . Contact Amarilis huffman [phone] documented in this encounter Plan of Treatment Upcoming Encounters Date Type Department Care Team (Late st Contact Info) Description 10/30/2024 2:15 PM EDT Office Visit [facility] 230 [place] [address] Panda Crooks MD 230 [place] [address] documented as of this encounter Visit Diagnoses Not on filedocumented in this encounter Additional Health Concerns Assessment Noted Time PHQ-9 Depression Total Score: 0 07/31/19 9:12 AM EDT documented as of this encounter Care Teams Instructor Watch Assembly Relationship Specialty Start Date End Date Panda Coroks MD 230 [place] [address] PCP - General Internal Medicine 12/18/13 Julieta [place] 04/06/24 documented as of this encounter
--- OUTSIDE RECORDS SUMMARY | 2024-10-28 16:54 | XMS_ITS | Encounter Summary ---
Author Organization [facility] Address 100 [facility] 200 [place] [address] Phone Care Team Providers Care Spot Facer Name Role Phone Panda Muniz MD Primary Care Provider Unav ailable Reason for Visit * Reason Comments Med Refill Encounter Details Date Type Department Care Team (Late Contact Info) Description 02/27/2022 Refill [facility] 100 [facility] 200 [place] [address] Sami Morales MD Social History [...] Visit [facility] [address] [place] [address] [place] [phone] Alfonso Cole MD 3551 [facility] 204 [place] [phone] documented as of this encounter Visit Diagnoses Not on filedocumented in this encounter Care Teams Spot Facer Relationship Specialty Start Date End Date Panda Muniz MD PCP - General 03/15/20 documented as of this encounter
--- OUTSIDE RECORDS SUMMARY | 2024-10-28 16:54 | XMS_ITS | Encounter Summary ---
Author Organization [employer] Address [address] [place] [address] 7 [place] [address] Care Team Providers Care Lawyer Real Estate Name Role Phone Panda Crooks MD Primary Care Provide r Encounter Details Date Type Department Care Team (Late st Contact Info) Description 09/02/2022 Orders Only [facility] [address] [place] [address] [phone] Panda Crooks MD [address] [place] [phone] Macrocytic anemia (Primary Dx) Social History Tobacco [...] Description 10/30/2024 2:15 PM EDT Office Visit [facility] [address] [place] [address] [phone] Panda Crooks MD 230 [place], [place] [phone] Scheduled Orders Name Type Priority Associated Diagnoses [...] documented as of this encounter Care Teams Lawyer Real Estate Relationship Specialty Start Date End Date Panda Crooks MD [address] [place] [address] PCP - General Internal Medicine 12/18/13 Julieta TATE 04/06/24 documented as of this encounter
--- OUTSIDE RECORDS SUMMARY | 2024-10-28 16:54 | XMS_ITS | Encounter Summary ---
Author Organization [employer] Address [address] [place] [address] 7 [place] [address] Care Team Providers Care Manager Pipeline Name Role Phone Panda Crooks MD Primary Care Provide r Reason for Visit * Reason Onset Date Comments Nurse Triage 10/23/2024 Encounter Details Date Type Department Care Team ([facility] st Contact Info) Description 10/23/2024 Telephone [facility] 230 [place], [place] [phone] Panda Crooks MD 230 [place] [address] Nurse Triage Social History Tobacco Use Types [...] Telephone Encounter - Lily Mai LPN - 10/23/2024 3:51 PM EDT Triage call placed to patient at listed home number. Patient answers and is able to relate concernsof painful urination. Onset of pain was 3 months ago. No blood or pus noted in urine no fever or back pain. Patient reports slight burning with urination. Fluids encouraged at time of call. Patient with PCP appt. Next week 10/30/24 and patient reports he prefers to wait until that time to be seen. E ncouraged to come to [facility] tomorrow after opening at 8:30am for evaluation. Patient gave verbal consent to update [facility] Amarilis with hours of operation. Call placed to [facility] and updated on status. Protocol Used: Urination Pain - Male (Adult) Protocol-Based Disposition: See in Office or Video Visit Today Override (Final) Disposition: See in Office or Video Visit Today or Tomorrow Override Reason: End of day or office closed Positive Triage Question: * All other males with painful urination, or patient wants to be seen * All higher-acuity triage questions were negative Care Advice Discussed: * Drink Extra Fluids * Reasons To Call Back - You become worse * Telephone Encounter - Bonita Poole - 10/23/2024 3:32 PM EDT Symptom: Urine Symptoms Outcome: Schedule an urgent appointment (within 4 hours) or talk to a nurse or provider soon Reason: Pain when passing urine (peeing) Contact pt at [phone] documented in this encounter Plan of Treatment Upcoming Encounters Date Type Department Care Team (Late st Contact Info) Description 10/30/2024 2:15 PM EDT Office Visit [facility] 230 [place] [address] Panda Crooks MD [address] [place] [address] documented as of this encounter Visit Diagnoses Not on filedocumented in this encounter Additional Health Concerns Assessment Noted Time PHQ-9 Depression Total Score: 0 07/31/19 9:12 AM EDT documented as of this encounter Care Teams Manager Pipeline Relationship Specialty Start Date End Date Panda Crooks MD 230 [place] [address] PCP - General Internal Medicine 12/18/13 Julieta TATE 04/06/24 documented as of this encounter
--- OUTSIDE RECORDS SUMMARY | 2024-10-28 16:54 | XMS_ITS | Encounter Summary ---
Author Organization [employer] Address [address] [place] [address] 7t [place] [address] Care Team Providers Care Finish Machine Tender Name Role Phone Panda Crooks MD Primary Care Provide r Reason for Visit * Reason Comments Med Refill Encounter Details Date Type Department Care Team ([facility] st Contact Info) Description 08/19/2024 Refill [facility] 230 [place], [place] [phone] Panda Crooks MD 230 [place] [address] Social History Tobacco Use Types Packs/Day Years [...] Description 10/30/2024 2:15 PM EDT Office Visit [facility] 230 [place] [address] Panda Crooks MD [address] [place] [address] documented as of this encounter Visit Diagnoses Not on filedocumented in this encounter Additional Health Concerns Assessment Noted Time PHQ-9 Depression Total Score: 0 07/31/19 9:12 AM EDT documented as of this encounter Care Teams Finish Machine Tender Relationship Specialty Start Date End Date Panda Crooks MD 230 [place] [address] PCP - General Internal Medicine 12/18/13 Julieta KATZA 04/06/24 documented as of this encounter
--- OUTSIDE RECORDS SUMMARY | 2024-10-28 16:54 | XMS_ITS | Encounter Summary ---
Author Organization [facility] Address 100 [facility] 200 [place] [address] Phone Care Team Providers Care Street Sweeper Operator Name Role Phone Panda Muniz MD Primary Care Provider Unav ailable Reason for Visit * Reason Comments Med Refill Encounter Details Date Type Department Care Team (Late Contact Info) Description 04/05/2022 Refill [facility] 100 [facility] 200 [place] [address] Sami Morales MD Social History [...] Visit [facility] [address] [place] [phone] Alfonso Cole MD 355 [facility] 204 [place] [phone] documented as of this encounter Visit Diagnoses Not on filedocumented in this encounter Care Teams Street Sweeper Operator Relationship Specialty Start Date End Date Panda Muniz MD PCP - General 03/15/20 documented as of this encounter
--- OUTSIDE RECORDS SUMMARY | 2024-10-28 16:54 | XMS_ITS | Encounter Summary ---
Author Organization [employer] Address [address] [place] [address] 7 [place] [address] Care Team Providers Care Delivery Crew Worker Name Role Phone Panda Crooks MD Primary Care Provide r Reason for Visit * Reason Onset Date Comments [facility] 06/12/2024 Encounter Details Date Type Department Care Team ([facility] st Contact Info) Description 06/12/2024 Telephone [facility] [address] [place] [address] Panda Crooks MD [address] [place] [address] [facility] Social History Tobacco Use Types Packs/Day Years [...] encounter Miscellaneous Notes * Telephone Encounter - Yaa Owens - 06/12/2024 11:53 AM EDT LEILANI Purvis with [facility] requesting a call back due to questions they have regarding patient. Questions: If patient has decisional capacity? Does the patient have a health care proxy? If yes, who is the proxy? Does the PCP believe patient needs a higher level of care? Does the PCP have any concerns regarding patient? If pt receiving medication or services for mental health? Caller name : Hyun [id number] documented in this encounter Plan of Treatment Upcoming Encounters Date Type Department Care Team (Late st Contact Info) Description 10/30/2024 2:15 PM EDT Office Visit [facility] [address] [place] [address] Panda Crooks MD [address] [place] [address] documented as of this encounter Visit Diagnoses Not on filedocumented in this encounter Additional Health Concerns Assessment Noted Time PHQ-9 Depression Total Score: 0 11/01/19 24 10:45 AM EDT documented as of this encounter Care Teams Delivery Crew Worker Relationship Specialty Start Date End Date Panda Crooks MD [address] [place] [address] [place] [address] PCP - General Internal Medicine 12/18/13 Julieta TATE 04/06/24 documented as of this encounter
--- OUTSIDE RECORDS SUMMARY | 2024-10-28 16:54 | XMS_ITS | Encounter Summary ---
Author Organization [employer] Address [address] [place] [address] 7 [place] [address] Care Team Providers Care Continuous Improvement Black Belt Name Role Phone Panda Crooks MD Primary Care Provide r Encounter Details Date Type Department Care Team (Late st Contact Info) Description 01/25/2022 Abstract [facility] [address] [place] [phone] Panda Crooks MD [address] [place] [address] [phone] Social History Tobacco Use Types Packs/Day Years [...] Description 10/30/2024 2:15 PM EDT Office Visit [facility] [address] [place] [phone] Panda Crooks MD [address] [place], [place] [phone] documented as of this encounter Procedures Procedure Name Priority Date/Time Associated Diagnosis Comments COLONOSCOPY Routine 12/18/2014 documented in this encounter Results * Colonoscopy (12/18/2014) Colonoscopy Tubular Adenoma Comment:Dr. Montoya us Historical Provider HEALTH MAINTENANCE Final Result documented in this encounter Visit Diagnoses Not on filedocumented in this encounter Care Teams Continuous Improvement Black Belt Relationship Specialty Start Date End Date Panda Crooks MD [address] [place] [address] PCP - General Internal Medicine 12/18/[address] [facility] 04/06/24 documented as of this encounter
--- OUTSIDE RECORDS SUMMARY | 2024-10-28 16:54 | XMS_ITS | Clinical Summary ---
Author Organization [employer] Address [address] [place] [address] 7t [place] [address] Care Team Providers Care Pst Manager Name Role Phone Panda Crooks MD [...] 40 mg by mouth. 06/06/19 23 Active Emollient (Eucerin Daily Protection/SPF30) lotionIndications :Xerosis of skin Use twice daily 118 mL 11 11/01/19 24 Active albuterol 108 (90 Base) MCG/ACT inhaler Inhale 2 puffs every 4 (four) hours if needed for wheezing or shortness of breath. Maximum 8 puffs per day 18 g 3 04/01/19 25 026 Active acetaminophen (FT Pain Reliever Ex Str Adult) 500 MG tabletIndications :Pain TAKE 1 TABLET BY MOUTH EVERY 6 HOURS IF NEEDED FOR MODERATE PAIN 30 tablet 04/15/19 25 Active hydrALAZINE (Apresoline) 50 MG tablet Take 1 tablet by mouth in the morning and 1 tablet in the evening. 04/14/19 25 Active OLANZapine (ZyPREXA) 5 MG tablet Take 1 tablet by mouth Once per day. 04/01/19 25 Active oxybutynin XL (Ditropan-XL) 10 MG 24 hr tablet Take 1 tablet by mouth Once per day. 04/01/19 25 Active cyanocobalamin (Vitamin B-12) 1000 MCG tablet Take 1,000 mcg by mouth Once per day. In the morning Active ergocalciferol (Vitamin D-2) 1.25 MG (36466 UT) capsule Take 1.25 mg by mouth every 30 (thirty) days. Active montelukast (Singulair) 10 MG tabletIndications :Mild intermittent asthma without complication TAKE 1 TABLET (10MG) BY ORAL ROUTE EVERY DAY IN THE EVENING 90 tablet 1 05/28/19 25 Active docusate sodium (Colace) 100 MG capsuleIndication s:Constipation, unspecified constipation type Take 1 capsule by mouth 2 times daily as needed 180 capsule 1 05/30/19 25 Active lisinopril 40 MG tablet TAKE 1 TABLET BY MOUTH EVERY DAY 30 tablet 5 06/25/19 25 Active famotidine (Pepcid) 20 MG tabletIndications :Chronic gastritis without bleeding, unspecified gastritis type Take 1 tablet (20 mg) by mouth at bedtime. 30 tablet 3 07/31/19 25 Active simvastatin (Zocor) 20 MG tabletIndications :Mixed hyperlipidemia TAKE 1 TABLET (20 MG) BY MOUTH AT BEDTIME. 30 tablet 2 08/23/19 25 Active potassium chloride CR (Klor-Con) 10 MEQ ER tablet TAKE 1 TABLET (10 MEQ) BY MOUTH ONCE PER DAY. DO NOT CRUSH OR CHEW. 30 tablet 10/09/19 25 Active aspirin (Aspirin Low Dose) 81 MG EC tabletIndications :Essential hypertension Take one daily in the morning 30 tablet 4 10/10/19 25 Active metoprolol succinate XL (Toprol-XL) 50 MG 24 hr tabletIndications :Essential hypertension Take 1 tablet (50 mg) by mouth Once per day. In the morning 30 tablet 5 10/10/19 25 Active cefpodoxime (Vantin) 100 MG tablet Take 1 tablet (100 mg) by mouth 2 times daily for 7 days. 14 tablet 10/29/19 25 025 Active Aspirin Low Dose 81 MG EC tablet TAKE 1 TABLET (81 MG) BY MOUTH ONCE PER DAY. 30 tablet 4 07/25/19 25 025 Discontinued metoprolol succinate XL (Toprol-XL) 50 MG 24 hr tablet TAKE 1 TABLET BY MOUTH EVERY DAY 30 tablet 5 08/27/19 25 025 Discontinued potassium chloride CR (Klor-Con) 10 MEQ ER tablet TAKE 1 TABLET (10 MEQ) BY MOUTH ONCE PER DAY. DO NOT CRUSH OR CHEW. 30 tablet 09/05/19 25 025 Discontinued Active Problems Problem Noted Date Diagnosed Date Acute cystitis without hematuria 07/30/2024 Assessment & Plan (07/30/2024 9:48 AM EDT): U/A indicative of this Plan Send for Ucx Start Levaquin 250 mg every other day (adjusted for renal function). 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 While in the Hospital he was evaluated by psych who recommended outpatient follow up on his cognition MME last visit was: 23 ( pt does not know how to add or substract ) I suspect his cognitive iusses while in the Hospital were mostly reflective of acute illness, hypoxemia and UTI Pt was referred to Neurology last visit He was seen 06/04/[address] Tolbert who reviewed previous EEG and CT. He diagnosed with with chronic static encephalopathy. 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 He also mentioned that there is no disease modifying treatment for this and recommended to start: Memantine 5 mg po BID and to follow up with him in 4 months Assessment & Plan (04/22/2024 9:52 AM EST): [...] secondary to hypertension 11/01/2023 Assessment & Plan (07/30/2024 8:56 AM EDT): Pt under the care of Nephrology seeing Dr Coel Last seen 07/01/2024 Assessment & Plan (04/22/2024 9:38 AM EST): Pt seeing Dr Cole Last seen 12/2023 Assessment & Plan (11/01/2023 10:43 AM EDT): Pt seeing Dr Cole Last seen 12/2022 Routine physical examination 11/01/2023 Assessment & Plan (11/01/2023 10:44 AM EDT): Pt is here for a routine physical exam Within normal limits Preventative health care 11/01/2023 Assessment & Plan (07/30/2024 9:16 AM EDT): PSA 05/13/2024 Normal 0.74 Colonoscopy: 12/2014 Showed a Tubular Adenoma, Dr Frausto stated that still he would be at low risk and recommended to repeat in 10 yrs Vaccines: Flu shot: Declined Pneumovax: 01/20/2016 Shingles: 01/06/2015 Td: 04/20/2015 Assessment & Plan (11/01/2023 10:46 AM EDT): [...] indicative of this, discuss with pt and pediatric care coordinator the need for better hygene, pt only bathing once or twice a week. separator tender promised to help with bathing Also recommended [...] hematuria, care managed by [facility]. Last seen 01/23/2023 Recommended 1 year follow up. Patient will continue Oxybutynin 10mg, 2 tablets daily and Flomax 0.4mg, 1 tablet daily as management of BPH. Patient will follow-up with Urology Assessment & Plan (02/09/2022 1:12 PM EST): Patient here for a f/u has a history of BPH and hematuria, care managed by [facility]. Last seen July 2021 Recommended 1 year follow up. Patient will continue Oxybutynin 10mg, 2 tablets daily and Flomax 0.4mg, 1 tablet daily as management of BPH. Patient will follow-up with Urology Proteinuria 10/05/2020 Macrocytic anemia 02/15/2017 Assessment & Plan (07/30/2024 9:16 AM EDT): Under the care of Hematology Last seen 05/07/2024 was on Procrit in the past Assessment & Plan (11/01/2023 10:37 AM EDT): [...] follow low salt diet. Tubular adenoma 01/26/2015 Hyperlipidemia 03/12/2012 Macrocytosis 03/12/2012 Resolved Problems Problem Noted Date Diagnosed Date Resolved Date Chronic kidney disease (CKD), stage II (mild) 08/07/19 15 11/01/2023 Assessment & Plan (02/09/2022 1:21 PM EST): Patient last nephrology with Dr Cole Last labs on 12/05/2021 results: Creatinine 1.53 GFR 45 Will continue to monitor. Patient will follow-up with financial agent. Acute cough 05/28/2012 07/22/2024 Assessment & Plan (02/09/2022 2:08 PM EST): Pt still smoking, c/o cough non productive, no fever, no sob Discussed need to quit smoking, offered nicotine patches, lozenges, pt declined. Rapid flu and Covid-19 negative Plan: Supportive measures, Guaifenesin prn Encounters Date Type Department Care Team Description 10/28/2024 9:00 AM EDT Office Visit [facility] [address] [place] [address] Nicko Kevin MD Dysuria (Primary Dx) 10/28/2024 Travel 10/27/2024 Telephone [facility] [address] [place] [address] Panda Crooks MD Lab Orders 10/23/2024 Telephone [facility] [address] [place] [address] Panda Crooks MD Nurse Triage 10/09/2024 Orders Only [facility] [address] [place] [address] Panda Crooks MD Essential hypertension (Primary Dx) 10/07/2024 Refill [facility] [address] [place] [address] Panda Crooks MD 10/07/2024 Telephone [facility] [address] [place] [address] Panda Crooks MD Medication Question 09/23/2024 Refill [facility] [address] [place] [address] Panda Crooks MD 09/02/2024 Refill [facility] [address] [facility] [place] [address] Panda Crooks MD 08/25/2024 Refill [facility] [address] [facility] [place] [address] Panda Crooks MD 08/21/2024 Refill [facility] [address] [facility] [address] Panda Crooks MD Mixed hyperlipidemia 08/19/2024 Refill [facility] [address] [facility] [place] [address] Panda Crooks MD 08/05/2024 Refill [facility] [address] [facility] [place] [address] Panda Crooks MD 07/30/2024 9:00 AM EDT Office Visit [facility] [address] [place] [address] Panda Crooks MD Chronic static encephalopathy (Primary Dx); Macrocytic anemia; 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); Chronic gastritis without bleeding, unspecified gastritis type; Acute cystitis without hematuria; Dysuria; Preventative health care 07/30/2024 Travel 07/29/2024 Telephone [facility] [address] [facility] [place] [address] Panda Crooks MD Chart Prep from Last 3 Months Immunizations Immunization Administration Dates Next Due Moderna Covid-19 Vaccine [...] Mass Index 31.38 10/28/2024 9:05 AM EDT Plan of Treatment Upcoming Encounters Date Type Department Care Team (Late st Contact Info) Description 10/30/2024 2:15 PM EDT Office Visit [facility] [address] [place] [address] Panda Crooks MD [address] [place], [place] [phone] Health Maintenance Due Date Last Done Comments CT Colonography 1948 FIT DNA/Cologuard 1948 FIT 1948 FOBT 1950 Sigmoidoscopy 1950 Hepatitis C Screening 1966 COVID-19 Vaccine ( season) 2023 03/10/2021, 06/04/2020, 05/07/2020 Influenza Vaccine (#1) 2024 Colonoscopy 12/18/2024 12/18/2014, 12/18/2014 Colorectal Cancer Screening 12/18/2024 DTaP/Tdap/Td Vaccines (2 - Td or Tdap) 04/20/2025 04/20/2015, 11/17/1999 Alcohol/Substance Use Screening 04/22/2025 04/22/2024 SDOH Screening 04/22/2025 04/22/2024 Depression Screening 07/30/2025 07/30/2024, 07/31/19 25 Tobacco Screening 10/28/2025 10/28/2024 Lipid Panel 05/13/2029 05/13/2024, 01/20/2021 Zoster Vaccines Completed 06/29/2021, 06/04, [...] patient's age to complete this topic Meningococcal B Vaccine Aged Out No l onger eligible based on patient's age to complete [...] DIPSTICK Routine 10/28/2024 9:38 AM EDT Dysuria POCT URINALYSIS DIPSTICK Routine 07/30/2024 9:45 AM EDT Dysuria CULTURE, URINE, ROUTINE Routine 07/30/2024 9:41 AM EDT Dysuria CHLAMYDIA/N. GONORRHOEAE RNA, TMA, UROGENITAL Routine 07/30/2024 9:40 AM EDT Dysuria LIPID PANEL, STANDARD Routine 05/13/2024 10:45 AM EDT Chronic kidney disease (CKD), stage II (mild) HM COLONOSCOPY Routine 12/18/2014 from Last 3 Months or Most Recently Relevant to Health Maintenance Results * (ABNORMAL) POCT Urinalysis (10/28/2024 9:38 AM EDT) Only the most recent of2 resultswithin the time period is included. Color, UA Yellow Clarity, UA Cloudy Glucose, UA Negative Bilirubin, UA Negative Ketones, UA Negative Spec Grav, UA 1.020 Blood, UA Positive(A) Negative, None Detected Comment:trace-intact pH, UA 6.0 Protein, UA 3+ 500+++ Comment:30 mg/dl Urobilinogen, UA 1.0 Leukocytes, UA Many(A) Negative, Rare, Trace Comment:large Nitrite, UA Positive(A) Negative, None Detected Urine 10/28/2024 9:38 AM EDT Nicko Kevin MD POINT OF CARE TEST ENTER/EDIT OR DERABLES Final Result * Culture, Urine, Routine (07/30/2024 9:41 AM EDT) Urine Urine specimen obtained by clean catch procedure / Unknown 07/30/2024 9:41 AM EDT 07/30/2024 5:46 PM EDT Comment:UACC Narrative [facility] - 08/01/2024 7:53 AM EDT Citrobacter koseri Quant > 100,000 cfu/mL Citrobacter koseri: Cefazolin 2(S) Citrobacter koseri: Cefepime <=0.12(S) Citrobacter koseri: Ceftriaxone <=0.25(S) Citrobacter koseri: Ciprofloxacin <=0.06(S) Citrobacter koseri: Gentamicin <=1(S) Citrobacter koseri: Nitrofurantoin 32(S) Citrobacter koseri: Trimethoprim/Sulfamethoxazole <=20(S) Specimen Source: Urine clean catch Panda Farmer MD LAB MICROBIOLOGY - NERTX ORDERABLES Final Result [facility] [address] [place] [phone] * Chlamydia/N. Gonorrhoeae RNA, TMA, Urogenitial (07/30/2024 9:40 AM EDT) CT PCR NOT DETECTED Not Detect. [facility] Comment:A not detected test result does not exclude the possibilityof infection because test results can be affected byimproper specimen collection, concurrent antibiotic therapy,or the number of organisms in the specimen which may bebelow the sensitivity of the test. As with many diagnostictests, results from the Xpert CT/NG assay should beinterpreted in conjunction with other laboratory andclinical data available to the clinician.Xpert CT/NG performance has not been evaluated in patientsless than 14 years of age. The assay should not be used forthe evaluationof suspected sexual abuse or for other medico-legalindications. Additional testing is recommended in anycircumstance when false positive or false negative resultscould lead to adverse medical, social or psychologicalconsequences. NG PCR NOT DETECTED Not Detect. [facility] Comment:A not detected test result does not exclude the possibilityof infection because test results can be affected byimproper specimen collection, concurrent antibiotic therapy,or the number of organisms in the specimen which may bebelow the sensitivity of the test. As with many diagnostictests, results from the Xpert CT/NG assay should beinterpreted in conjunction with other laboratory andclinical data available to the clinician.Xpert CT/NG performance has not been evaluated in patientsless than 14 years of age. The assay should not be used forthe evaluationof suspected sexual abuse or for other medico-legalindications. Additional testing is recommended in anycircumstance when false positive or false negative resultscould lead to adverse medical, social or psychologicalconsequences. Urine (Urine, Random) 07/30/2024 9:40 AM EDT 07/30/2024 5:46 PM EDT Narrative [facility] - 07/31/2024 5:16 AM EDT Urine Panda Farmer MD LAB MICROBIOLOGY - [facility] ORDERABLES Final Result [facility] [address] [place] [phone] * (ABNORMAL) Lipid Panel, Standard (05/13/2024 10:45 AM EDT) Triglycerides 100 <150 mg/dL [facility] Comment:Desirable Triglyceri de: less than 150 mg/dLBorderline High Triglyceride 150-199 mg/dLHigh Triglyceride: 200-499 mg/dLVery High Triglyceride: greater than or equal to 5OO mg/dL Cholesterol 142 <200 mg/dL [facility] Comment:Desirable Cholestero l: less than 200 mg/dLBorderline High Cholesterol: 200-239 mg/dLHigh Cholesterol: greater than 239 mg/dL LDL Cholesterol Calculated 86 <100 mg/dL [facility] Comment:Desirable LDL: less than 100 mg/dLNear Optimal/Above Optimal LDL: 110- 129 mg/dLBorderline High LDL: 130-159 mg/dLHigh LDL: 160-189 mg/dLVery High LDL: greater than or equal to 190 mg/dL HDL Cholesterol 36(L) >40 mg/dL [facility] Comment:Desirable HDL: great er than 40 mg/dL Note: This HDL assay may give artificially low results in patients with liver disease. Blood Venous blood specimen / Unknown 05/13/2024 10:45 AM EDT 05/13/2024 11:29 AM EDT Panda Farmer MD LAB BLOOD ORDERABLES Final Result [facility] [address] [place] [phone] * Colonoscopy (12/18/2014) Colonoscopy Tubular Adenoma Comment:Dr. Montoya Historical Provider HEALTH MAINTENANCE Final Result from Last 3 Months or Most Recently Relevant to Health Maintenance Insurance [facility] STANDARD [employer] MEDICARE REPLACEMENT Care Teams Pst Manager Relationship Specialty Start Date End Date Panda Crooks MD [address] [place] [address] [place] [phone] PCP - General Internal Medicine 12/18/13 Julieta TATE 04/06/24
== END 2024-10-28 16:32 | disposition home or self-care (01) ==
LOC: HO.HHCLNP 16:31
PROVIDERS: Visit Provider Emergency Medicine
DX: R30.0 Dysuria (principal)
CPT/HCPCS: 87086; 87088; 87186